=== PATIENT | male | born 1960 | race Caucasian/White ===

== ENCOUNTER 2017-07-27 04:57 | Inpatient (IN) | payer MEDICARE, MEDICAID, SELFPAY ==
[2017-07-27] VITALS (23 sets, daily range): BP systolic 107–140; BP diastolic 65–115; PULSE 75–95; RESP 11–20; TEMP 36.2–36.7; O2SAT 93–99; BMI 37.3; BMI 34.6
--- NOTE | 2017-07-27 05:04 | EKG12_ITS ---
Test Reason : OVERDOSE Blood Pressure : / mmHG Vent. Rate : 087 BPM Atrial Rate : 087 BPM P-R Int : 174 ms QRS Dur : 096 ms QT Int : 372 ms P-R-T Axes : 061 -46 038 degrees QTc Int : 447 ms Normal sinus rhythm Left anterior fascicular block Abnormal ECG Confirmed by NASEEM MCGREGOR, HAMLET ([id number]), health editor SANDY STARK ([id number]) on 07/28/2017 1:03:20 PM Referred By: CORNELL Confirmed By:HAMLET GUSMAN MD
--- NOTE | 2017-07-27 05:08 | NURSING ---
NO OLD EKG
[2017-07-27 05:16] LABS: Absolute Lymphocyte Count 2.57 X10^3/ul (0.83-4.51); Absolute Neutrophil Count 4.6 X10^3/uL (2.0-7.7); Basophil# 0.03 X10^3/uL; Basophil% 0.4 % (0-1); Eosinophil# 0.12 X10^3/uL; Eosinophils% 1.5 % (0-5); Hematocrit 48.9 % (40-54); Hemoglobin 16.8 g/dl (13.0-16.5); Lymphocyte # 2.57 X10^3/ul (4.0); Mean Corp Hgb Conc 34.4 g/gl (32-36); Mean Corpuscular Hgb 35.7 pg (27.0-32.0); Mean Platelet Vol. 9.8 fl (6.2-12.0); Monocyte# 0.49 X10^3/uL; Monocyte% 6.3 % (0-10); Neutrophil # 4.57 X10^3/uL (2.7-7.7); Neutrophil % 58.7 % (47-70); Platelet Count 190 K/mm3 (150-450); RBC Distribution Width SD 45.9 fl (35.1-43.9); White Blood Count 7.8 K/mm3 (4.4-11.0)
[2017-07-27 05:17] LABS: POSITIVE COUNT NO; POSITIVE DIFFERENTIAL NO; POSITIVE MORPHOLOGY NO
[2017-07-27 05:20] LABS: Anion Gap 8 (5-15); BUN 9 mg/dL (7-18); BUN/Creat Ratio 9.3 RATIO (10-20); Calcium,Total 8.6 mg/dL (8.5-10.1); Chloride 103 mmol/L (98-107); Creatinine, Serum 0.96 mg/dL (0.70-1.30); EST Glomerular Filtration Rate 85 mL/min (>60); Est Glom Filt Rate - Afr Amer 103 mL/min (>60); Estimated Creatinine Clearance 93.18 ml/min; Glucose 102 mg/dL (74-106); Potassium 3.9 mmol/L (3.5-5.1); Sodium Level 138 mmol/L (136-145)
[2017-07-27 05:48] LABS: Salicylate 2.7 mg/dL (2.8-20.0)
[2017-07-27] MEDS: 0.9% Normal Saline 1,000 ML 150 ML IV (05:48)
--- NOTE | 2017-07-27 06:08 | ED.RN ---
PT HAS BOWMAN OF 2 $20 BILLS 1 $10 BILL 1 $5 BILL AND 1 $1 BILL
--- NOTE | 2017-07-27 06:12 | ED.DCSUM_ITS ---
- ER Visit Summary Date of Service: 07/27/17 Chief Complaint: Overdose History of Present Illness: The patient is a [address] Dent. Patient reports that he has had 216 ounce beers since 5 PM yesterday. Reports at 2:00 this morning he took 800 mg of gabapentin. His significant other called the police because she thought that he had taken the rest of them. Patient reports that they fell on the toilet. Denies taking anything else. He denies any suicidal ideation. However, he is not reliable or forthcoming. I was able to reach the patient's significant other approximately an hour after his arrival. She reports that they had had an argument and she watched him take a handful of pills approximately 20 minutes after that. Based on the patient's pill bottles he should have had 18 gabapentin left if he was taking them appropriately. These are 400 mg pills. There are only 3 left. He should have had eight 1 mg Klonopin pills left. There are none left. Physical Examination: Vitals: Stable. Afebrile. Intoxicated. General: Well-nourished and well-developed. Head: Normocephalic atraumatic. Neck: Supple, no lymphadenopathy. No JVD. Nontender. Cardiovascular: Regular rate and rhythm. No murmurs. Respiratory: No respiratory distress. Clear to auscultation bilaterally. Abdominal: Soft, nontender, nondistended, normal bowel sounds. No guarding, rebound, or peritoneal signs. Back: Nontender. Extremities: Nontender, no edema. Skin: Normal color, no rash. Neurologic: Alert and oriented ?3. Cranial nerves II through XII are intact. Normal strength and sensation. Psych: Normal affect. Test Results: EKG is sinus at 87 with left anterior fascicular block. Normal QT interval. CBC is marked for hemoglobin 16.8. Chem-7 is normal. Aspirin level is 2.7. Tylenol is less than 2. Blood alcohol level is 81. Tox screen shows amphetamines. Emergency Department Course and Treatment: Patient was given charcoal in the emergency department. He has been observed over the course of 2-1/2 hours. He is somnolent, but arousable. He is protecting his airway and maintaining saturation in the mid 90s on no oxygen. Treatment Plan: The patient was discussed with Dr. Fierro and Dr. Mata. He will be admitted to the ICU for observation and consultation by the counseling center. Disposition: Admitted in serious condition. Impression: 1. Intentional overdose. This note was generated with [employer] dictation software. It may contain incorrect words, spelling, and punctuation that were not noted in review of the chart prior to signing ED Disposition - Plan for ED Patient: Chief Complaint: Overdose Referrals: Justice Messer MD [Primary Care Provider] -
[2017-07-27] MEDS: Ondansetron 4 MG/2 ML Vial IV (06:21)
[2017-07-27 06:27] LABS: Amphetamine Urine VISTA POSITIVE (<1000 ng/mL); Barbiturate Urine VISTA NEGATIVE (< 200 ng/mL); Benzodiazepine Urine VISTA NEGATIVE (< 200 ng/mL); Cocaine Urine VISTA NEGATIVE (< 300 ng/mL); Ecstacy Urine VISTA NEGATIVE (< 500 ng/mL); Methadone Urine VISTA NEGATIVE (< 300 ng/mL); PCP Urine VISTA NEGATIVE (< 25 ng/mL); THC Urine VISTA NEGATIVE (< 50 ng/mL); Vista UDS pH Range 6
[2017-07-27] MEDS: Activated Charcoal 50 GM/240 ML BOT PO (06:31)
[2017-07-27 07:08] LABS: Acetaminophen (Tylenol) Level < 2.0 ug/mL (10.0-30.0)
--- NOTE | 2017-07-27 07:21 | NURSING ---
DR CLEMENTE IN ER
--- NOTE | 2017-07-27 07:43 | NURSING ---
ICU 7 DRUG OD MALINDATI
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
[2017-07-27] MEDS: Enoxaparin 40 MG/0.4 ML Syringe SC (10:20)
[2017-07-27] MEDS: CHLORHEXIDINE GLUC 2% CLOTH 1 EACH TOWELETTE TOPICAL (10:20)
[2017-07-27] MEDS: 0.9% Normal Saline 1,000 ML 50 ML IV ×2 (10:20→17:17)
[2017-07-27 10:26] LABS: AST(SGOT) 29 U/L (15-37); Alanine Aminotransfer ALT/SGPT 35 U/L (16-61); Albumin, Serum 3.8 g/dL (3.2-5.0); Alkaline Phosphatase 106 U/L (45-117); Bilirubin, Direct 0.12 mg/dL (0.00-0.30); Cholesterol 214 mg/dL (200); Globulin 4.4 g/dL (2.2-4.2); High Density Lipoprotein 53 mg/dL; Protein, Total 8.2 g/dL (6.4-8.2); Triglycerides 228 mg/dL; Very Low Density Lipoprotein 46 mg/dL (5-40)
[2017-07-27 10:46] LABS: M R Staph aureus DNA By PCR Negative (Negative); Probe Check PASS; Specimen Processing Control PASS
--- NOTE | 2017-07-27 13:57 | CHAPLAIN ---
SO was in hallway and very emotional after seeing patient in ICU; offered support and we sat in waiting area to talk and bring calm to this SO; this person said she has insecurities about the relationship; pt has evidently been angry with her; Commercial Insulator had requested this visitor to go home so patient could be calm; this person had complied to leave room and then after we talked this nnps watched her get on the elevator to leave
--- NOTE | 2017-07-27 16:13 | CASEMGMT ---
Social Work RN reporting that pt is medically stable and physician is requesting crisis referral. Phone call to Taya at Crisis and referral made. Taya states she will make arrangements to have a community worker see the pt but was unable to give a time. Nursing notified. ABBY Yu
[2017-07-28] VITALS (11 sets, daily range): BP systolic 94–131; BP diastolic 59–82; PULSE 66–83; RESP 11–21; TEMP 36.7–37.1; O2SAT 93–98
[2017-07-28] MEDS: CHLORHEXIDINE GLUC 2% CLOTH 1 EACH TOWELETTE TOPICAL (05:07)
[2017-07-28] MEDS: 0.9% NaCl Peripheral Flush Adult/Peds IV (05:07)
[2017-07-28 05:16] LABS: Hematocrit 43.7 % (40-54); Hemoglobin 14.9 g/dl (13.0-16.5); Mean Corp Hgb Conc 34.1 g/gl (32-36); Mean Corpuscular Hgb 35.6 pg (27.0-32.0); Mean Corpuscular Volume 104.3 fL (80-94); Mean Platelet Vol. 9.9 fl (6.2-12.0); Platelet Count 171 K/mm3 (150-450); RBC Distribution Width CV 11.9 % (11.6-14.6); RBC Distribution Width SD 44.7 fl (35.1-43.9); Red Blood Count 4.19 M/mm3 (4.6-6.2); White Blood Count 6.5 K/mm3 (4.4-11.0)
[2017-07-28 05:18] LABS: Scan Indicated on CBC? Y/N NO
[2017-07-28 05:59] LABS: Anion Gap 6 (5-15); BUN 11 mg/dL (7-18); Calcium,Total 8.2 mg/dL (8.5-10.1); Chloride 109 mmol/L (98-107); EST Glomerular Filtration Rate 82 mL/min (>60); Est Glom Filt Rate - Afr Amer 99 mL/min (>60); Estimated Creatinine Clearance 89.46 ml/min; Glucose 86 mg/dL (74-106); Potassium 4.2 mmol/L (3.5-5.1); Sodium Level 142 mmol/L (136-145)
[2017-07-28] MEDS: Enoxaparin 40 MG/0.4 ML Syringe SC (07:39)
--- NOTE | 2017-07-28 08:57 | PCM.DC ---
- Discharge Diagnoses Current Active Problems: Current Active and Chronic Problems Chronic low back pain with bilateral sciatica (Chronic) Obesity (BMI 30-39.9) (Chronic) Mental retardation (Chronic) Speech impediment (Chronic) History of melanoma excision (Chronic) Lower lip Current smoker (Chronic) cigarettes Depression (Chronic) History of attempted suicide (Chronic) Neuropathy (Chronic) You will use the following diet at home:: Other - low fat Your food should be the consistency of: Regular Your liquids should be the consistency of: Regular/Thin Discharge Activity: Return to Normal Activity Call your doctor if you observe: Fever of 101 or Higher, - - any thoughts of committing suicide or any homicidal thoughts or thought of hurting someone Allergies/Adverse Reactions: Allergies No Known Allergies Allergy (Verified 07/27/17 05:12) Medications to take at Discharge BuPROPion [Wellbutrin] 75 mg PO DAILY 06/18/15 Gabapentin [Neurontin] 400 mg PO TIDCM 06/18/15 Ibuprofen/Diphenhydramine Cit [Advil Pm Caplet] 2 each PO QHS PRN PRN 06/18/15 Clonazepam [Klonopin] 1 mg PO QHS PRN PRN 07/27/17 Primary Care Physician: Justice Messer MD [Primary Care Provider] - Please follow up with your Primary Care Physician in: 5-7 days Please Follow Up With: councelling center When: has an appt for 07/30 Proposed Discharge Date: 07/28/17
--- NOTE | 2017-07-28 09:25 | PCM.DC.SUM ---
Discharge Date and Diagnosis Date of Admission: 07/27/17 Date of Discharge: 07/28/17 - Primary Discharge Diagnosis Active and Suspected Problems OD (overdose of drug) (Suspected) - Secondary Discharge Diagnosis Chronic Problems Chronic low back pain with bilateral sciatica (Chronic) Obesity (BMI 30-39.9) (Chronic) Mental retardation (Chronic) self reported Speech impediment (Chronic) History of melanoma excision (Chronic) Lower lip Current smoker (Chronic) cigarettes Depression (Chronic) History of attempted suicide (Chronic) Neuropathy (Chronic) Hospital Course and Treatment Imaging Results: Labs (Last 48 Hours) 07/27/17 07/27/17 07/27/17 05:00 05:00 05:00 WBC 7.8 RBC 4.70 Hgb 16.8 H Hct 48.9 MCV 104.0 H MCH 35.7 H MCHC 34.4 RDW 12.0 RDW Differential 45.9 H Plt Count 190 MPV 9.8 Immature Gran % (Auto) 0.100 Neut % (Auto) 58.7 Lymph % (Auto) 33.0 [place] % (Auto) 6.3 Eos % (Auto) 1.5 Baso % (Auto) 0.4 Absolute Neuts (auto) 4.6 Absolute Lymphs (auto) 2.57 Total Counted Not Reportable Sodium 138 Potassium 3.9 Chloride 103 Carbon Dioxide 27.0 Anion Gap 8 BUN 9 Creatinine 0.96 Estim Creat Clear Calc 93.18 Est GFR (MDRD) Af Amer 103 Est GFR (MDRD) Non-Af 85 BUN/Creatinine Ratio 9.3 L Glucose 102 Calcium 8.6 Total Bilirubin Direct Bilirubin AST ALT Alkaline Phosphatase Total Protein Albumin Globulin Triglycerides Cholesterol LDL Cholesterol VLDL Cholesterol HDL Cholesterol Salicylates 2.7 L Urine Opiates Screen Urine Methadone Screen Acetaminophen < 2.0 L Ur Barbiturates Screen Ur Phencyclidine Scrn Ur Amphetamines Screen U Methamphetamin-MDMA U Benzodiazepines Scrn Urine Cocaine Screen U Cannabinoids Screen Ur Drug Screen Comment Ethyl Alcohol 81.0 MRSA (PCR) 07/27/17 07/27/17 07/27/17 05:00 05:35 08:55 WBC RBC Hgb Hct MCV MCH MCHC RDW RDW Differential Plt Count MPV Immature Gran % (Auto) Neut % (Auto) Lymph % (Auto) [place] % (Auto) Eos % (Auto) Baso % (Auto) Absolute Neuts (auto) Absolute Lymphs (auto) Total Counted Sodium Potassium Chloride Carbon Dioxide Anion Gap BUN Creatinine Estim Creat Clear Calc Est GFR (MDRD) Af Amer Est GFR (MDRD) Non-Af BUN/Creatinine Ratio Glucose Calcium Total Bilirubin 0.40 Direct Bilirubin 0.12 AST 29 ALT 35 Alkaline Phosphatase 106 Total Protein 8.2 Albumin 3.8 Globulin 4.4 H Triglycerides 228 H Cholesterol 214 H LDL Cholesterol 115 VLDL Cholesterol 46 H HDL Cholesterol 53 Salicylates Urine Opiates Screen NEGATIVE Urine Methadone Screen NEGATIVE Acetaminophen Ur Barbiturates Screen NEGATIVE Ur Phencyclidine Scrn NEGATIVE Ur Amphetamines Screen POSITIVE H U Methamphetamin-MDMA NEGATIVE U Benzodiazepines Scrn NEGATIVE Urine Cocaine Screen NEGATIVE U Cannabinoids Screen NEGATIVE Ur Drug Screen Comment Ethyl Alcohol MRSA (PCR) Negative 07/28/17 07/28/17 05:05 05:05 WBC 6.5 RBC 4.19 L Hgb 14.9 Hct 43.7 MCV 104.3 H MCH 35.6 H MCHC 34.1 RDW 11.9 RDW Differential 44.7 H Plt Count 171 MPV 9.9 Immature Gran % (Auto) Neut % (Auto) Lymph % (Auto) [place] % (Auto) Eos % (Auto) Baso % (Auto) Absolute Neuts (auto) Absolute Lymphs (auto) Total Counted Sodium 142 Potassium 4.2 Chloride 109 H Carbon Dioxide 27.0 Anion Gap 6 BUN 11 Creatinine 1.00 Estim Creat Clear Calc 89.46 Est GFR (MDRD) Af Amer 99 Est GFR (MDRD) Non-Af 82 BUN/Creatinine Ratio 11.0 Glucose 86 Calcium 8.2 L Total Bilirubin Direct Bilirubin AST ALT Alkaline Phosphatase Total Protein Albumin Globulin Triglycerides Cholesterol LDL Cholesterol VLDL Cholesterol HDL Cholesterol Salicylates Urine Opiates Screen Urine Methadone Screen Acetaminophen Ur Barbiturates Screen Ur Phencyclidine Scrn Ur Amphetamines Screen U Methamphetamin-MDMA U Benzodiazepines Scrn Urine Cocaine Screen U Cannabinoids Screen Ur Drug Screen Comment Ethyl Alcohol MRSA (PCR) Consultations 07/27/17 15:15 Consult: Mental Health/Crisis Routine Reason for consult?: suicidal ideation Date Notified:: 07/27/17 Time notified:: 15:16 Operations: None Procedures: None Summary of Care Provided: The patient is a 57 year old M who was brought to the ED at [facility] on 07/27/2017 after his called them because she thought he had taken too many of his pills...he is on Gabapentin and Klonopin. She stated that he took a handful of pills in front of her after they had an argument. He denied this. He told me his pill bottles were empty because he took them while standing over the sink and the toilet is next to the sink and his pills ended up in the toilet. He denied any suicidal ideation however, he has had suicidal attempts in the past by hanging. Tells me he has been admitted to a psychiatric hospital on more than one occasion in the past. Vital signs at presentation to the emergency room were temp 97.1, pulse 90, blood pressure 140/115, respiratory rate 18 and oxygen saturation was 97% on room air. CBC was remarkable for an increased hemoglobin at 16.8 normal white blood cell count and differential. Electrolytes, BUN and creatinine were all normal. Urine drug screen was positive for amphetamines however, he does take Wellbutrin and I suspect this is a false positive. Interestingly enough it was negative for benzodiazepines and he is on Klonopin. He was admitted to the ICU. He drowsy but able to answer questions and follow commands at the time of my initial evaluation. He had no bradycardia and no respiratory difficulties in the ICU. there were a few altercations/loud arguments between he and his significant other and she was asked to leave. He was seen by Crisis intervention and denied any suicidal ideation or homicidal ideation. An appt was made for him to follow up at the located within [facility] on 07/30. He was discharged home on 07/28/17. This note was generated with [employer] dictation software. It may contain incorrect words, spelling, and punctuation that were not noted in checking the note before signing. Discharge Activity: Return to Normal Activity Call your doctor if you observe: Fever of 101 or Higher, - - any thoughts of committing suicide or any homicidal thoughts or thought of hurting someone Home Medications: Medications to take at Discharge BuPROPion [Wellbutrin] 75 mg PO DAILY 06/18/15 Gabapentin [Neurontin] 400 mg PO TIDCM 06/18/15 Ibuprofen/Diphenhydramine Cit [Advil Pm Caplet] 2 each PO QHS PRN PRN 06/18/15 Clonazepam [Klonopin] 1 mg PO QHS PRN PRN 07/27/17 Primary Care Physician: Justice Messer MD [Primary Care Provider] - Please follow up with your Primary Care Physician in: 5-7 days Please Follow Up With: [facility] When: has an appt for 07/30 Disposition: Home Minutes spent on discharge:: 30 Meaningful Use Info Meaningful Use Diagnoses (Choose all that apply): None applicable
--- NOTE | 2017-07-28 09:28 | DS.PCM_ITS ---
Discharge Date and Diagnosis Date of Admission: 07/27/17 Date of Discharge: 07/28/17 - Primary Discharge Diagnosis Active and Suspected Problems OD (overdose of drug) (Suspected) - Secondary Discharge Diagnosis Chronic Problems Chronic low back pain with bilateral sciatica (Chronic) Obesity (BMI 30-39.9) (Chronic) Mental retardation (Chronic) self reported Speech impediment (Chronic) History of melanoma excision (Chronic) Lower lip Current smoker (Chronic) cigarettes Depression (Chronic) History of attempted suicide (Chronic) Neuropathy (Chronic) Hospital Course and Treatment Imaging Results: Labs (Last 48 Hours) 07/27/17 07/27/17 07/27/17 05:00 05:00 05:00 WBC 7.8 RBC 4.70 Hgb 16.8 H Hct 48.9 MCV 104.0 H MCH 35.7 H MCHC 34.4 RDW 12.0 RDW Differential 45.9 H Plt Count 190 MPV 9.8 Immature Gran % (Auto) 0.100 Neut % (Auto) 58.7 Lymph % (Auto) 33.0 Dale % (Auto) 6.3 Eos % (Auto) 1.5 Baso % (Auto) 0.4 Absolute Neuts (auto) 4.6 Absolute Lymphs (auto) 2.57 Total Counted Not Reportable Sodium 138 Potassium 3.9 Chloride 103 Carbon Dioxide 27.0 Anion Gap 8 BUN 9 Creatinine 0.96 Estim Creat Clear Calc 93.18 Est GFR (MDRD) Af Amer 103 Est GFR (MDRD) Non-Af 85 BUN/Creatinine Ratio 9.3 L Glucose 102 Calcium 8.6 Total Bilirubin Direct Bilirubin AST ALT Alkaline Phosphatase Total Protein Albumin Globulin Triglycerides Cholesterol LDL Cholesterol VLDL Cholesterol HDL Cholesterol Salicylates 2.7 L Urine Opiates Screen Urine Methadone Screen Acetaminophen < 2.0 L Ur Barbiturates Screen Ur Phencyclidine Scrn Ur Amphetamines Screen U Methamphetamin-MDMA U Benzodiazepines Scrn Urine Cocaine Screen U Cannabinoids Screen Ur Drug Screen Comment Ethyl Alcohol 81.0 MRSA (PCR) 07/27/17 07/27/17 07/27/17 05:00 05:35 08:55 WBC RBC Hgb Hct MCV MCH MCHC RDW RDW Differential Plt Count MPV Immature Gran % (Auto) Neut % (Auto) Lymph % (Auto) Dale % (Auto) Eos % (Auto) Baso % (Auto) Absolute Neuts (auto) Absolute Lymphs (auto) Total Counted Sodium Potassium Chloride Carbon Dioxide Anion Gap BUN Creatinine Estim Creat Clear Calc Est GFR (MDRD) Af Amer Est GFR (MDRD) Non-Af BUN/Creatinine Ratio Glucose Calcium Total Bilirubin 0.40 Direct Bilirubin 0.12 AST 29 ALT 35 Alkaline Phosphatase 106 Total Protein 8.2 Albumin 3.8 Globulin 4.4 H Triglycerides 228 H Cholesterol 214 H LDL Cholesterol 115 VLDL Cholesterol 46 H HDL Cholesterol 53 Salicylates Urine Opiates Screen NEGATIVE Urine Methadone Screen NEGATIVE Acetaminophen Ur Barbiturates Screen NEGATIVE Ur Phencyclidine Scrn NEGATIVE Ur Amphetamines Screen POSITIVE H U Methamphetamin-MDMA NEGATIVE U Benzodiazepines Scrn NEGATIVE Urine Cocaine Screen NEGATIVE U Cannabinoids Screen NEGATIVE Ur Drug Screen Comment Ethyl Alcohol MRSA (PCR) Negative 07/28/17 07/28/17 05:05 05:05 WBC 6.5 RBC 4.19 L Hgb 14.9 Hct 43.7 MCV 104.3 H MCH 35.6 H MCHC 34.1 RDW 11.9 RDW Differential 44.7 H Plt Count 171 MPV 9.9 Immature Gran % (Auto) Neut % (Auto) Lymph % (Auto) Dale % (Auto) Eos % (Auto) Baso % (Auto) Absolute Neuts (auto) Absolute Lymphs (auto) Total Counted Sodium 142 Potassium 4.2 Chloride 109 H Carbon Dioxide 27.0 Anion Gap 6 BUN 11 Creatinine 1.00 Estim Creat Clear Calc 89.46 Est GFR (MDRD) Af Amer 99 Est GFR (MDRD) Non-Af 82 BUN/Creatinine Ratio 11.0 Glucose 86 Calcium 8.2 L Total Bilirubin Direct Bilirubin AST ALT Alkaline Phosphatase Total Protein Albumin Globulin Triglycerides Cholesterol LDL Cholesterol VLDL Cholesterol HDL Cholesterol Salicylates Urine Opiates Screen Urine Methadone Screen Acetaminophen Ur Barbiturates Screen Ur Phencyclidine Scrn Ur Amphetamines Screen U Methamphetamin-MDMA U Benzodiazepines Scrn Urine Cocaine Screen U Cannabinoids Screen Ur Drug Screen Comment Ethyl Alcohol MRSA (PCR) Consultations 07/27/17 15:15 Consult: Mental Health/Crisis Routine Reason for consult?: suicidal ideation Date Notified:: 07/27/17 Time notified:: 15:16 Operations: None Procedures: None Summary of Care Provided: The patient is a 57 year old M who was brought to the ED at [facility] on 07/27/2017 after his called them because she thought he had taken too many of his pills...he is on Gabapentin and Klonopin. She stated that he took a handful of pills in front of her after they had an argument. He denied this. He told me his pill bottles were empty because he took them while standing over the sink and the toilet is next to the sink and his pills ended up in the toilet. He denied any suicidal ideation however, he has had suicidal attempts in the past by hanging. Tells me he has been admitted to a psychiatric hospital on more than one occasion in the past. Vital signs at presentation to the emergency room were temp 97.1, pulse 90, blood pressure 140/115, respiratory rate 18 and oxygen saturation was 97% on room air. CBC was remarkable for an increased hemoglobin at 16.8 normal white blood cell count and differential. Electrolytes, BUN and creatinine were all normal. Urine drug screen was positive for amphetamines however, he does take Wellbutrin and I suspect this is a false positive. Interestingly enough it was negative for benzodiazepines and he is on Klonopin. He was admitted to the ICU. He drowsy but able to answer questions and follow commands at the time of my initial evaluation. He had no bradycardia and no respiratory difficulties in the ICU. there were a few altercations/loud arguments between he and his significant other and she was asked to leave. He was seen by Crisis intervention and denied any suicidal ideation or homicidal ideation. An appt was made for him to follow up at the [facility] on 07/30. He was discharged home on 07/28/17. This note was generated with [employer] dictation software. It may contain incorrect words, spelling, and punctuation that were not noted in checking the note before signing. Discharge Activity: Return to Normal Activity Call your doctor if you observe: Fever of 101 or Higher, - - any thoughts of committing suicide or any homicidal thoughts or thought of hurting someone Home Medications: Medications to take at Discharge BuPROPion [Wellbutrin] 75 mg PO DAILY 06/18/15 Gabapentin [Neurontin] 400 mg PO TIDCM 06/18/15 Ibuprofen/Diphenhydramine Cit [Advil Pm Caplet] 2 each PO QHS PRN PRN 06/18/15 Clonazepam [Klonopin] 1 mg PO QHS PRN PRN 07/27/17 Primary Care Physician: Justice Messer MD [Primary Care Provider] - Please follow up with your Primary Care Physician in: 5-7 days Please Follow Up With: [facility] When: has an appt for 07/30 Disposition: Home Minutes spent on discharge:: 30 Meaningful Use Info Meaningful Use Diagnoses (Choose all that apply): None applicable
== END 2017-07-28 09:45 | disposition home or self-care (01) | DRG 918 ==
LOC: ED 05:28 → ICU 07:46
PROVIDERS: Admitting Provider Internal Medicine; Emergency Provider Emergency Medicine; Family Provider Family Medicine; PCP Family Medicine; Visit Provider Internal Medicine
DX: T50.901A Poisoning by unspecified drugs, medicaments and biological substances, accidental (unintentional), initial encounter (principal); G62.9 Polyneuropathy, unspecified; E66.9 Obesity, unspecified; G89.29 Other chronic pain; M54.42 Lumbago with sciatica, left side; M54.41 Lumbago with sciatica, right side; Z68.35 Body mass index [BMI] 35.0-35.9, adult; F79 Unspecified intellectual disabilities; R47.9 Unspecified speech disturbances; Z85.820 Personal history of malignant melanoma of skin; F17.210 Nicotine dependence, cigarettes, uncomplicated; Z91.5 Personal history of self-harm; F32.9 Major depressive disorder, single episode, unspecified
CPT/HCPCS: 80048; 80061; 80076; 80307; 80320; 80329; 85025; 85027; 87641; 93005; 99285; 99406; J7030; A4216; G0480; J2405

== ENCOUNTER → 2017-08-11 11:26 | Outpatient (CLI) | payer MEDICARE, MEDICAID, SELFPAY ==
[2017-08-11 14:53] LABS: PSA,Total - Annual Screen 1.59 ng/mL (0.00-4.00)
[2017-08-12 09:41] LABS: Vitamin D,25 Hydroxy 18.2 ng/mL (29.95-100.01)
== END ==
PROVIDERS: Family Provider Family Medicine; PCP Family Medicine; Visit Provider Family Medicine
DX: Z00.00 Encounter for general adult medical examination without abnormal findings (principal); Z12.5 Encounter for screening for malignant neoplasm of prostate; N52.9 Male erectile dysfunction, unspecified; E55.9 Vitamin D deficiency, unspecified
CPT/HCPCS: 36415; 82306; 84153; 84403; G0103

== ENCOUNTER → 2017-11-11 10:47 | Outpatient (CLI) | payer MEDICARE, MEDICAID, SELFPAY ==
--- NOTE | 2017-11-11 10:51 | RAD_ITS ---
STUDY: X-RAY - RIGHT HAND, ATTENTION RING FINGER REASON FOR EXAM: Male, 57 years old. Nodule TECHNIQUE: 3 view(s) of the finger were obtained. COMPARISON: None. FINDINGS: There is deformity of the visualized fifth metacarpal consistent with remote trauma. Normal metacarpophalangeal joint. Normal proximal phalanx. There is some cortical thickening along the anterior diaphysis of the fourth middle phalanx. Normal distal phalanx. Normal proximal interphalangeal joint. Normal distal interphalangeal joint. There is no fracture. A bony spur is seen along the radial aspect of the distal third phalanx. Some cortical thickening is seen along the anterior diaphysis of the fifth middle phalanx as well. RAD/Finger(s) Min 2 Views IMPRESSION: Cortical thickening along the diaphysis of the fourth and fifth middle phalanges. This is of uncertain clinical significance. No discrete soft tissue abnormality or acute fracture. Electronically Signed: Zbigniew Noguera DO at 8:46 EDT Tel , Service support ,
== END ==
PROVIDERS: Family Provider Family Medicine; PCP Family Medicine; Visit Provider Family Medicine
DX: R22.31 Localized swelling, mass and lump, right upper limb (principal)
CPT/HCPCS: 73140

== ENCOUNTER 2018-07-28 05:59 | Day surgery (SDC) | payer MEDICARE, MEDICAID, SELFPAY ==
[2018-07-09 10:47] VITALS: BMI 34.6
[2018-07-28 06:52] VITALS: BP 123/84; PULSE 81; RESP 18; TEMP 36.3; O2SAT 98; BMI 34.9
--- NOTE | 2018-07-28 07:30 | IMM_PTH ---
PATIENT: CRISTOPHER DA SILVA LOC: EN U#:[id number] AGE/SX: 58/M ROOM: RE07/28/[address]: Dr. Shashi Betts MD : 1960 BED: DIS: 07/28/2018 SPEC #: [id number] RECD: 07/28/18 14:08 STATUS: MICHAEL REColton #: [id number] BOBBY: 07/28/18 07:[address]: Shashi Betts DEPT: IMMUNOHISTOCHEMISTRY RECD BY: Fadia Clark ENTERED: 07/28/18 14:10 SP TYPE: IMMUNO OTHR DR: Dr. Rupert Messer MD Tissues: Stomach, NOS Procedures: H Pylori (initial) PHYSICIAN & INSTITUTION [place] [id number] SPECIMEN INFORMATION: Tissue Source: Antrum biopsy Clinical Info: Epigastric abdomen pain, GERD Specimen Number: [id number] CPT code: 75859 METHODOLOGY: Deparaffinized sections of prefer/formalin-fixed tissue or PAP/DQ stained slides are incubated with monoclonal/polyclonal antibodies/oligonucleotide probes. Localization is made via biotin free immunoperoxidase method. Appropriate controls are performed and reacted as expected. Results on target cell population are indicated in the following table: RESULTS: ANTIBODY / CLONE RESULT H Pylori (polyclonal) negative These tests were developed and their performance characteristics determined by [facility]. They may not have been cleared or approved by the U.S. Food and Drug Administration. The FDA has determined that such clearance or approval is not necessary. INTERPRETATION: Antrum biopsy: Negative for Helicobacter pylori organisms. BONILLA:shyla 07/29/18
--- NOTE | 2018-07-28 07:30 | EGD_PTH ---
PATIENT: CRISTOPHER DA SILVA LOC: EN U#:[id number] AGE/SX: 58/M ROOM: RE07/28/[address]: Dr. Shashi Betts MD : 1960 BED: DIS: 07/28/2018 SPEC #: [id number] RECD: 07/28/18 10:51 STATUS: MICHAEL JERONIMO #: [id number] BOBBY: 07/28/18 07:[address]: Shashi Betts DEPT: SURGICAL PATHOLOGY RECD BY: Benjamín Elder ENTERED: 07/28/18 13:25 SP TYPE: EGD BIOPSY OTHR DR: Dr. Rupert Messer MD Tissues: Gastric mucous membrane Procedures: Surgery Specimen Level IV HEADER OPERATION: EGD ([facility] [place]) PRE-OP DIAGNOSIS: Epigastric abdomen pain, GERD TISSUE SUBMITTED: Antrum biopsy for H. pylori and path MICROSCOPIC DIAGNOSIS Antrum biopsy: Mild gastritis. See microscopic description and comment. SJ:shyla 07/29/18 COMMENT The results of immunohistochemistry for Helicobacter pylori will be reported separately ([id number]). MICROSCOPIC DESCRIPTION Slides are reviewed. The specimen shows fragments of gastric mucosa with chronic inflammatory cell infiltrates in the lamina propria consisting of lymphocytes and plasma cells, consistent with mild chronic gastritis. GROSS DESCRIPTION Received in fixative is one container labeled with the patient's name and designated antrum biopsy. The specimen consists of one irregular fragment of light alcocer soft tissue that measures 0.7 x 0.2 x 0.1 cm. The specimen is totally submitted in one cassette. / AM:shyla 07/28/18 TC:5 CPT: 84341
--- NOTE | 2018-07-28 07:42 | OP.ENDO_ITS ---
Patient Name: Jayda Mclean Procedure Date: 07/28/2018 7:28 AM Date of : 1960 Age: 58 Procedure: Upper GI endoscopy Indications: Epigastric abdominal pain, Suspected esophageal reflux Providers: Shashi Betts MD Referring MD: Shashi Betts MD Medicines: See the Anesthesia note for documentation of the administered medications Patient Profile: This is a 58 year old male. Refer to note in patient chart for documentation of history and physical. Complications: No immediate complications. Procedure: Pre-Anesthesia Assessment: - Prior to the procedure, a History and Physical was performed, and patient medications and allergies were reviewed. The patient's tolerance of previous anesthesia was also reviewed. The risks and benefits of the procedure and the sedation options and risks were discussed with the patient. All questions were answered, and informed consent was obtained. Prior Anticoagulants: The patient has taken no previous anticoagulant or antiplatelet agents. ASA Grade Assessment: III - A patient with severe systemic disease. After reviewing the risks and benefits, the patient was deemed in satisfactory condition to undergo the procedure. After obtaining informed consent, the endoscope was passed under direct vision. Throughout the procedure, the patient's blood pressure, pulse, and oxygen saturations were monitored continuously. The gastroscope was introduced through the mouth, and advanced to the second part of duodenum. The upper GI endoscopy was accomplished without difficulty. The patient tolerated the procedure well. Scope In: 7:35:49 AM Scope Out: 7:39:34 AM Total Procedure Duration Time 0 hours 3 minutes 45 seconds Findings: The examined esophagus was normal. The Z-line was regular and was found 40 cm from the incisors. Diffuse mild inflammation characterized by erythema was found in the prepyloric region of the stomach. Biopsies were taken with a cold forceps for Helicobacter pylori testing. The examined duodenum was normal. No biopsies or other specimens were collected for this exam. Impression: - Normal esophagus. - Z-line regular, 40 cm from the incisors. - Gastritis. Biopsied. - Normal examined duodenum. No specimens collected. Recommendation: - Discharge patient to home. - Resume previous diet. - Continue present medications. - Await pathology results. - Repeat upper endoscopy at appointment to be scheduled for surveillance. - Return to my office in 1 week. Procedure Code(s): --- Professional --- 93402, Esophagogastroduodenoscopy, flexible, transoral; with biopsy, single or multiple Diagnosis Code(s): --- Professional --- K29.70, Gastritis, unspecified, without bleeding R10.13, Epigastric pain CPT copyright 2017 [employer]. All rights reserved. The codes documented in this report are preliminary and upon mobile homes repairer review may be revised to meet current compliance requirements. MD Shashi Aaron MD 07/28/2018 7:42:59 AM This report has been signed electronically. Number of Addenda: 0 Note Initiated On: 07/28/2018 7:28 AM
[2018-07-28 07:43] VITALS: BP 123/84; BP 91/77; PULSE 75; RESP 16; TEMP 36.6; O2SAT 92
[2018-07-28 07:50] VITALS: BP 100/79; BP 123/84; PULSE 71; RESP 16; O2SAT 94
[2018-07-28 07:55] VITALS: BP 103/82; BP 123/84; PULSE 69; RESP 16; O2SAT 94
[2018-07-28 08:03] VITALS: BP 107/66; BP 123/84; PULSE 73; RESP 16; TEMP 36.6; O2SAT 95
[2018-07-28 08:26] VITALS: BP 123/84
== END 2018-07-28 08:28 | disposition home or self-care (01) ==
LOC: EN 05:59 → AC 06:00
PROVIDERS: Family Provider Family Medicine; PCP Family Medicine; Referring Provider Surgery; Visit Provider Surgery
PROC: 0DJ08ZZ Inspection of Upper Intestinal Tract, Via Natural or Artificial Opening Endoscopic (ICD-10-PCS; CPT 43235; principal; 2018-07-28 07:25)
DX: K29.70 Gastritis, unspecified, without bleeding (principal); K21.9 Gastro-esophageal reflux disease without esophagitis; R10.13 Epigastric pain; F32.9 Major depressive disorder, single episode, unspecified; F41.9 Anxiety disorder, unspecified; F25.0 Schizoaffective disorder, bipolar type; F79 Unspecified intellectual disabilities; R47.9 Unspecified speech disturbances; G62.9 Polyneuropathy, unspecified; E66.9 Obesity, unspecified; F17.220 Nicotine dependence, chewing tobacco, uncomplicated; Z68.34 Body mass index [BMI] 34.0-34.9, adult; Z79.899 Other long term (current) drug therapy
CPT/HCPCS: 43239; 88305; 88342; J7120

== ENCOUNTER → 2018-08-02 11:52 | Outpatient (CLI) | payer MEDICARE, MEDICAID, SELFPAY ==
[2018-07-28 06:52] VITALS: BMI 34.9
[2018-08-02 14:15] LABS: BUN 9 mg/dL (7-18); EST Glomerular Filtration Rate 66 mL/min (>60); Glucose 89 mg/dL (74-106)
[2018-08-02 14:16] LABS: AST(SGOT) 33 U/L (15-37); Alanine Aminotransfer ALT/SGPT 29 U/L (16-61); Albumin, Serum 3.9 g/dL (3.2-5.0); Alkaline Phosphatase 108 U/L (45-117); Anion Gap 6 (5-15); BUN/Creat Ratio 7.5 RATIO (10-20); Calcium,Total 8.8 mg/dL (8.5-10.1); Chloride 105 mmol/L (98-107); Cholesterol 201 mg/dL (200); Est Glom Filt Rate - Afr Amer 80 mL/min (>60); Globulin 4.1 g/dL (2.2-4.2); High Density Lipoprotein 49 mg/dL; Potassium 4.3 mmol/L (3.5-5.1); Sodium Level 139 mmol/L (136-145); Triglycerides 263 mg/dL; Very Low Density Lipoprotein 53 mg/dL (5-40)
[2018-08-02 14:27] LABS: Vitamin D,25 Hydroxy 45.6 ng/mL (29.95-100.01)
== END ==
PROVIDERS: Family Provider Family Medicine; PCP Family Medicine; Visit Provider Family Medicine
DX: Z00.00 Encounter for general adult medical examination without abnormal findings (principal); E55.9 Vitamin D deficiency, unspecified; R07.9 Chest pain, unspecified
CPT/HCPCS: 36415; 80053; 80061; 82306

== ENCOUNTER → 2018-08-06 05:44 | Outpatient (CLI) | payer MEDICARE, MEDICAID, SELFPAY ==
[2018-07-28 06:52] VITALS: BMI 34.9
--- NOTE | 2018-08-06 18:32 | STRESSREP ---
Stress Test Report Date: 08-06-2018 Procedure: Exercise tolerance test/imaging study Indications: Chest pain; abnormal ECG Consent: Per the patient Procedure: The patient exercised on a Awais protocol for 8 minutes completing Stage II and 2 minutes of Stage III achieving a peak heart rate of 144 bpm (88 % predicted maximal heart rate) with a peak blood pressure 202/64 mmHg and a peak MET capacity of 9 METs. The baseline ECG demonstrated sinus bradycardia . The peak exercise ECG demonstrated no obvious ECG changes . There were no cardiac dysrhythmias pretest, during exercise, or recovery. The functional capacity was considered average . There was no complaint of chest discomfort during exercise or recovery. The examination was discontinued secondary to dyspnea . Impression: 1. Technically adequate (percent predicted maximal heart rate greater than 85%) exercise tolerance test 2. Peak exercise ECG with no obvious ECG changes 3. There were no cardiac dysrhythmias pretest, during exercise, or recovery 4. Nuclear images pending Myocardial perfusion imaging study: Technique: The patient was injected with 14.5 mCi of technetium 99m Cardiolite and subsequently rest SPECT Cardiolite nuclear imaging was obtained in the horizontal long, vertical long, and short axis views. The patient exercised on a Awais protocol for 8 minutes completing Stage II and 2 minutes of Stage III achieving a peak heart rate of 144 bpm (88 % predicted maximal heart rate) with a peak blood pressure 2O2/64 mmHg and a peak MET capacity of 9 METs. The patient was injected with 44.1 mCi of technetium 99m Cardiolite and subsequently stress SPECT Cardiolite nuclear imaging was obtained in the horizontal long, vertical long, and short axis views. A gated Cardiolite study at peak stress was obtained. Interpretation: Rest and stress SPECT Cardiolite nuclear imaging status post realignment, normalization, and attenuation correction, demonstrates the appearance of relative uniform tracer uptake and myocardial perfusion appearing within normal limits. There is end systolic thickening and brightening. The gated Cardiolite study demonstrates myocardial thickening and inward wall motion. The reported LVEF is 73 %. Impression: 1. Rest and stress SPECT Cardiolite nuclear imaging demonstrate relative uniform tracer uptake and myocardial perfusion appearing within normal limits. 2. The gated Cardiolite study reports an LVEF of 73 %. This note was generated with [employer] software. It may contain incorrect words, spelling, and punctuation that were not noted in checking the note before signing.
== END ==
PROVIDERS: Family Provider Family Medicine; PCP Family Medicine; Referring Provider Family Medicine; Visit Provider Family Medicine
DX: R07.9 Chest pain, unspecified (principal)
CPT/HCPCS: 78452; 93017; A9500; A4216

== ENCOUNTER → 2020-01-23 10:59 | Outpatient (CLI) | payer MEDICARE, MEDICAID, SELFPAY ==
[2020-01-24 07:39] LABS: SARS-COV-2 TOTAL ABS Nonreactive (Nonreactive)
== END ==
PROVIDERS: PCP Family Medicine; Visit Provider Family Medicine
DX: Z20.828 Contact with and (suspected) exposure to other viral communicable diseases (principal)
CPT/HCPCS: 86769; G2023

== ENCOUNTER → 2020-07-05 10:06 | Outpatient (CLI) | payer MEDICARE, MEDICAID, SELFPAY ==
[2020-07-05 12:19] LABS: Hematocrit 46.3 % (40-54); Hemoglobin 15.7 g/dL (13.0-16.5); Mean Corp Hgb Conc 33.9 g/dL (32-36); Mean Corpuscular Hgb 34.4 pg (27.0-32.0); Mean Corpuscular Volume 101.3 fL (80-94); Platelet Count 212 K/mm3 (150-450); RBC Distribution Width SD 44.9 fl (35.1-43.9); Red Blood Count 4.57 M/mm3 (4.6-6.2); White Blood Count 10.6 K/mm3 (4.4-11.0)
[2020-07-05 12:46] LABS: ALB/GLOB Ratio 1.1 RATIO (0.9-2.4); AST(SGOT) 28 U/L (15-37); Alanine Aminotransfer ALT/SGPT 45 U/L (16-61); Alkaline Phosphatase 99 U/L (45-117); Anion Gap 6 (5-15); BUN 13 mg/dL (7-18); BUN/Creat Ratio 13.9 RATIO (10-20); Calcium,Total 9.1 mg/dL (8.5-10.1); Chloride 107 mmol/L (98-107); Cholesterol 203 mg/dL (200); Creatinine, Serum 0.93 mg/dL (0.70-1.30); EST Glomerular Filtration Rate 88 mL/min (>60); Est Glom Filt Rate - Afr Amer 106 mL/min (>60); Globulin 3.6 g/dL (2.2-4.2); Glucose 101 mg/dL (74-106); High Density Lipoprotein 58 mg/dL; PSA,Total - Annual Screen 1.66 ng/mL (0.00-4.00); Protein, Total 7.6 g/dL (6.4-8.2); Sodium Level 139 mmol/L (136-145); Triglycerides 114 mg/dL; Very Low Density Lipoprotein 23 mg/dL (5-40)
[2020-07-05 12:49] LABS: Vitamin D,25 Hydroxy 36.4 ng/mL
== END ==
PROVIDERS: PCP Family Medicine; Referring Provider Family Medicine; Visit Provider Family Medicine
DX: K21.9 Gastro-esophageal reflux disease without esophagitis (principal); J44.9 Chronic obstructive pulmonary disease, unspecified; E55.9 Vitamin D deficiency, unspecified; Z12.5 Encounter for screening for malignant neoplasm of prostate; Z13.220 Encounter for screening for lipoid disorders; R53.83 Other fatigue; Z79.899 Other long term (current) drug therapy
CPT/HCPCS: 36415; 80053; 80061; 82306; 84153; 85027; G0103

== ENCOUNTER → 2020-07-18 14:06 | Outpatient (CLI) | payer MEDICARE, MEDICAID, SELFPAY ==
--- NOTE | 2020-07-18 14:12 | RAD_ITS ---
STUDY: X-RAY - PELVIS AND LEFT HIP REASON FOR EXAM: Male, 60 years old. Left hip pain. History of several injuries. TECHNIQUE: 3 views of the pelvis and hip. COMPARISON: 01/03/2015 FINDINGS: There is a non-specific bowel gas pattern. Normal visualized soft tissue structures. Generalized osteopenia. Normal bilateral iliac wings, sacroiliac joints and visualized sacrum. Normal bilateral superior and inferior pubic rami. Normal pubic symphysis. Normal bilateral ischial tuberosities. Moderate lower lumbar spondylosis. Mild arthrosis of both hips. RAD/HIP, UNI W/ Pelvis 2-3 Views IMPRESSION: Osteopenia with osteoarthritic changes as described. No acute finding. Electronically Signed: Saurabh Doherty MD at 15:32 EST , Service support ,
== END ==
PROVIDERS: PCP Family Medicine; Referring Provider Nurse Practitioner Family; Visit Provider Nurse Practitioner Family
DX: M25.552 Pain in left hip (principal)
CPT/HCPCS: 73502

== ENCOUNTER → 2020-07-25 09:26 | Outpatient (CLI) | payer MEDICARE, MEDICAID, SELFPAY ==
--- NOTE | 2020-07-25 09:28 | RAD_ITS ---
STUDY: X-RAY - RIGHT SHOULDER REASON FOR EXAM: Right shoulder pain radiating into neck, no specific injury. TECHNIQUE: 4 view(s) of the shoulder. COMPARISON: None. FINDINGS: Normal glenohumeral articulation. Normal acromioclavicular joint. Normal acromion. Normal humeral head and visualized proximal humerus. The soft tissue structures are unremarkable. Normal visualized pulmonary apex. RAD/Shoulder min 2 Views IMPRESSION: Normal x-ray examination of the right shoulder. Electronically Signed: Jordan Leon MD at 10:50 EST Tel , Service support ,
== END ==
PROVIDERS: PCP Family Medicine; Referring Provider Nurse Practitioner Family; Visit Provider Nurse Practitioner Family
DX: M25.511 Pain in right shoulder (principal)
CPT/HCPCS: 73030

== ENCOUNTER → 2020-10-01 09:10 | Outpatient (CLI) | payer MEDICARE, MEDICAID, SELFPAY ==
--- NOTE | 2020-10-01 09:14 | RAD_ITS ---
STUDY: X-RAY - LEFT SHOULDER REASON FOR EXAM: Male, 60 years old. PAIN TECHNIQUE: 4 view(s) of the shoulder. COMPARISON: None. FINDINGS: No acute fracture, dislocation or osseous destruction. Healed left rib fractures. Moderate acromioclavicular joint arthrosis. Mild glenohumeral joint arthrosis. No significant soft tissue swelling. RAD/Shoulder min 2 Views IMPRESSION: Left shoulder intact Moderate AC joint arthrosis Mild glenohumeral joint arthrosis Electronically Signed: Emerson Barragan DO at 9:45 EDT Tel , Service support ,
== END ==
PROVIDERS: PCP Family Medicine; Referring Provider Family Medicine; Visit Provider Family Medicine
DX: M25.512 Pain in left shoulder (principal)
CPT/HCPCS: 73030

== ENCOUNTER → 2020-10-05 06:26 | Outpatient (CLI) | payer MEDICARE, MEDICAID, SELFPAY ==
--- NOTE | 2020-10-05 06:47 | MRI_ITS ---
STUDY: MRI LUMBAR SPINE WITHOUT CONTRAST REASON FOR EXAM: Male, 60 years old. SPINAL STENOSIS, PAIN IN BILATERAL HIPS AND INTO LEGS L and gt;R TECHNIQUE: Standardized fat and water weighted pulse sequences were obtained in the sagittal and axial planes. COMPARISON: MRI lumbar spine without contrast 04/09/2015. FINDINGS: T11-T12: (Sagittal only). Schmorl''s nodes in the vertebral endplates. Mild disc space height narrowing. Small posterior bulging disc. Normal central canal and bilateral intervertebral neural foramina. T12-L1: (Sagittal only). Tiny Schmorl''s nodes in the vertebral endplates. Normal disc height and morphology. Normal central canal and bilateral intervertebral neural foramina. Normal lumbar lordosis. There is no substantial scoliosis. Normal conus medullaris that terminates at the upper L1 vertebral body level. L1-2: Moderate left-sided disc space height narrowing and MODIC type I degenerative vertebral marrow edema underneath the left side of the vertebral endplates are new findings. Mild degenerative anterolisthesis of L1 on L2 with left posterior paramedian and slightly cephalad disc protrusion are also new findings. Moderately pronounced flattening central canal stenosis with an AP canal diameter of 5.6 mm. Normal bilateral lateral recesses. Progression of bilateral L1-L2 degenerative facet arthropathy which are moderately pronounced. Moderate stenosis of the left intervertebral neural foramen is new. Normal right intervertebral neural foramen. L2-3: Normal endplates. Mild disc space height narrowing is new. Small posterior annular bulging disc is new. Moderate central canal stenosis with an AP canal diameter of 7 mm, previously 9.6 mm. Normal bilateral lateral recesses. Moderate right degenerative facet arthropathy which was previously mild. Normal bilateral intervertebral neural foramina. L3-4: Anterior marginal spurs and prominent right lateral marginal spurs. Moderately pronounced disc space height narrowing, increasing towards the right side. Mild increase MODIC type II degenerative vertebral marrow fatty changes underneath the vertebral endplates. Small posterior annular bulging disc is unchanged. Mild to moderate central canal stenosis with an AP canal diameter of 8 mm is unchanged. Prominent dorsal epidural lipomatosis. Mild mild asymmetric degenerative facet arthropathy is unchanged. Mild stenosis of the right intervertebral neural foramen is unchanged. Normal left intervertebral neural foramen. L4-5: Pronounced disc space height narrowing with MODIC type II degenerative vertebral marrow fatty changes underneath the vertebral endplates and the irregularities of the vertebral endplates are unchanged. Moderately pronounced central canal stenosis with a transverse canal diameter of 5 mm but the AP canal diameter is 7.7 mm. This is unchanged. Moderate bilateral degenerative facet arthropathy are unchanged. Moderate stenosis of the right intervertebral neural foramen is unchanged. Mild stenosis of the left intervertebral neural foramen is unchanged. L5-S1: Minimal MODIC type II degenerative vertebral marrow fatty changes underneath the left side of the vertebral endplates are unchanged. Small posterior bulging disc is unchanged but there is mild decreased disc space height narrowing. Mild central canal stenosis with an AP canal diameter is 8 mm. Prominent dorsal epidural lipomatosis. Small posterior annular bulging disc. Normal bilateral lateral recesses. Mild to moderate bilateral degenerative facet arthropathy. Moderately pronounced stenosis of the left intervertebral neural foramen is unchanged. Mild to moderate stenosis of the right intervertebral neural foramen is unchanged. Normal visualized sacral ala. Normal visualized paraspinous soft tissue structures. MRI/Spine Lumbar (Routine) IMPRESSION: 1. No MRI evidence of lumbar extruded disc fragment. 2. Moderately pronounced flattening central canal stenosis at the L1-L2 disc space level with an AP canal diameter of 5.6 mm is a new finding along with minimal degenerative anterolisthesis of L1 on L2, left posterior paramedian and slightly cephalad disc protrusion, moderate stenosis of the left intervertebral neural foramen and progression of bilateral L1-L2 degenerative facet arthropathy which are now more moderately pronounced. 3. Moderate central canal stenosis at L2-L3 disc space level with an AP canal diameter of 7 mm, previously 9.6 mm and progression of right L2-3 degenerative facet arthropathy which is now moderate. 4. No significant interval change at the L3-L4, L4-L5 and L5-S1 disc space levels as described above in greater detail. Electronically Signed: Chuck Pyle MD at 12:35 EDT , Service support ,
== END ==
PROVIDERS: PCP Family Medicine; Referring Provider Nurse Practitioner Family; Visit Provider Nurse Practitioner Family
DX: M54.17 Radiculopathy, lumbosacral region (principal); M51.37 Other intervertebral disc degeneration, lumbosacral region; M47.817 Spondylosis without myelopathy or radiculopathy, lumbosacral region
CPT/HCPCS: 72148

== ENCOUNTER 2020-11-28 07:46 | Emergency (ER) | payer MEDICARE, MEDICAID, SELFPAY ==
[2020-11-28 07:47] VITALS: BP 137/99; PULSE 113; RESP 16; TEMP 36.4; O2SAT 98; BMI 31.8
--- NOTE | 2020-11-28 08:07 | EDS_ITS ---
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 Patient states that people are trying to harm me. He states I am 1 step ahead of them. Patient states this is been going on since he was 25 years old. He is trying to not go to sleep because he is concerned if he goes asleep but they will get him. He denies being suicidal or homicidal. He admits that he has a psychiatric history. He would like to speak to a psychiatrist. Prior similar symptoms: Yes Recent Illness/Hospitalization: No PFSH PFSH Medical History Chronic low back pain with bilateral sciatica Current smoker Depression History of attempted suicide Mental retardation Neuropathy Obesity (BMI 30-39.9) OD (overdose of drug) Speech impediment Home Medications bupropion HCl 75 mg PO DAILY 06/18/15 [History Last Taken 06/17/15] gabapentin 400 mg PO TIDCM 06/18/15 [History Last Taken 07/27/17 04:00] clonazepam 1 mg PO QHS PRN PRN 07/27/17 [History Last Taken 07/27/17 04:00] cholecalciferol (vitamin D3) 1,250 mcg (50,000 unit) capsule 50,000 unit PO QWEEK 07/09/18 [History Last Taken Unknown] dextroamphetamine-amphetamine 10 mg tablet 10 mg PO DAILY 07/09/18 [History Last Taken Unknown] mirtazapine 30 mg tablet 30 mg PO QHS 07/09/18 [History Last Taken Unknown] omeprazole 40 mg capsule,delayed release 40 mg PO DAILY 07/09/18 [History Last Taken Unknown] Allergy/AdvReac Type Severity Reaction Status Date / Time No Known Allergies Allergy Verified 07/26/18 14:58 Family History Mother Colon cancer Surgical History History of melanoma excision Social History Smoking Status: Current every day smoker tobacco type: cigarettes ROS ROS ED ROS Narrative Patient denies any recent illness. Review of Systems ROS Unobtainable: Denies due to encephalopathy Constitutional Constitutional ED: Denies fever(s) Eyes Eyes: Denies change in vision ENT ENT ED: Denies ear pain or sore throat Cardiovascular Cardiovascular: Denies chest pain or palpitations Respiratory/Chest Respiratory/Chest: Denies dyspnea Gastrointestinal Gastrointestinal: Denies abdominal pain, diarrhea, nausea or vomiting Genitourinary Genitourinary ED: Denies dysuria Integumentary Denies rash Neurologic Neurologic: Denies headache(s) Psychiatric Psychiatric: Denies depression Endocrine Endocrinology: Denies polyuria Hematologic/Lymphatic Hematologic/Lymphatic: Denies easy bruising Allergic/Immunologic Allergic/Immunologic ED: Denies urticaria EXAM Physical Exam Narrative Exam Narrative: 60-year-old male. No acute distress. Vital signs stable afebrile. No smell of alcohol. No obvious signs of toxidrome. Currently cooperative. Makes eye contact. Currently not violent or combative. Otherwise exam unremarkable. Const Vital Signs: 11/28/20 07:47 11/28/20 09:56 11/28/20 11:56 Temperature 97.6 F L Temperature Source Temporal Pulse Rate 113 H Respiratory Rate 16 16 16 Blood Pressure 137/99 H Blood Pressure Mean 111 Pulse Ox 98 Oxygen Delivery Method Room Air Positive well nourished and well developed General Appearance ED: well developed HEENT Reports moist mucous membranes normocephalic and atraumatic; Negative for trauma or tenderness Eyes PERRL and EOMs intact bilaterally Neck no lymphadenopathy, supple and no JVD Resp normal respiratory effort and clear to auscultation bilaterally Cardio no murmurs Rate: tachycardic Rhythm: regular rhythm GI non-tender, non-distended and no masses Auscultation: normoactive bowel sounds Palpation: soft Back/Spine no CVA tenderness Extremity normal to inspection Extremity Narrative: Multiple tattoos over his body. General Extremety ED: Negative for edema or tenderness General Extremity: Negative for edema Neuro oriented x3 Sensorium / Orientation: alert, oriented to person, oriented to place and oriented to time Motor Exam: strength 5/5 throughout; Negative for general weakness or strength abnormal Psych cooperative, speech normal, denies homicidal ideation and denies suicidal ideation Appearance: grossly normal Attitude: calm Activity / Motor Behavior: appropriate eye contact Speech: normal speech Skin Lesions: no lesions Rashes: no rashes MDM MDM MDM Narrative Medical decision making narrative: 60-year-old male history of paranoid schizophrenia for years. Today was at his sister's house and police were called to bring him in the emergency department. Currently he is cooperative. He will undergo an ED mental health evaluation and speak to the social and human services assistant. After his labs and that evaluation takes place will make a decision on psychiatric care plan. Repeat exam patient is doing well at 9:08 AM. Patient had long discussion with our social and human services assistant. At 1258 is doing well. He admitted to using methamphetamines yesterday which initially did not tell me. Currently he is calm. He is acting much more normally. He is not suicidal. He will be discharged home with follow-up appointment. Our social and human services assistant is trying to contact his mental health provider. Lab Data Attestation: I reviewed the patient's lab results. Lab results narrative: CBC unremarkable white count 10. Hemoglobin 16. Chemistries unremarkable and potassium 3.1. Normal gap of 5. Normal creatinine. Glucose 110. Tox screen positive for amphetamines, methamphetamines and marijuana. Alcohol negative. Labs: Laboratory Results - last 24 hr 11/28/20 11/28/20 11/28/20 08:20 08:20 08:20 WBC 10.3 RBC 4.63 Hgb 16.0 Hct 46.7 MCV 100.9 H MCH 34.6 H MCHC 34.3 RDW Std Deviation 43.7 RDW Coeff of Dacia 11.9 Plt Count 202 MPV 10.1 Immature Gran % (Auto) 0.300 Neut % (Auto) 81.7 H Lymph % (Auto) 11.7 L Marinette % (Auto) 5.8 Eos % (Auto) 0.2 Baso % (Auto) 0.3 Absolute Neuts (auto) 8.4 H Absolute Lymphs (auto) 1.20 Nucleated RBC % 0 Sodium 140 Potassium 3.1 L Chloride 109 H Carbon Dioxide 26.0 Anion Gap 5 BUN 18 Creatinine 0.82 Estim Creat Clear Calc 105.15 Est GFR (MDRD) Af Amer 122 Est GFR (MDRD) Non-Af 101 BUN/Creatinine Ratio 21.8 H Glucose 110 H Calcium 8.9 Urine Opiates Screen Urine Methadone Screen Ur Barbiturates Screen Ur Phencyclidine Scrn Ur Amphetamines Screen U Methamphetamin-MDMA U Benzodiazepines Scrn Urine Cocaine Screen U Cannabinoids Screen Ur Drug Screen Comment Ethyl Alcohol < 3.0 11/28/20 08:40 WBC RBC Hgb Hct MCV MCH MCHC RDW Std Deviation RDW Coeff of Dacia Plt Count MPV Immature Gran % (Auto) Neut % (Auto) Lymph % (Auto) Marinette % (Auto) Eos % (Auto) Baso % (Auto) Absolute Neuts (auto) Absolute Lymphs (auto) Nucleated RBC % Sodium Potassium Chloride Carbon Dioxide Anion Gap BUN Creatinine Estim Creat Clear Calc Est GFR (MDRD) Af Amer Est GFR (MDRD) Non-Af BUN/Creatinine Ratio Glucose Calcium Urine Opiates Screen NEGATIVE Urine Methadone Screen NEGATIVE Ur Barbiturates Screen NEGATIVE Ur Phencyclidine Scrn NEGATIVE Ur Amphetamines Screen POSITIVE H U Methamphetamin-MDMA POSITIVE H U Benzodiazepines Scrn NEGATIVE Urine Cocaine Screen NEGATIVE U Cannabinoids Screen POSITIVE H Ur Drug Screen Comment Ethyl Alcohol Discharge Plan Triage Chief Complaint: Mental Health ED Provider: Damaso Donovan Dx/Rx/DC Orders Clinical Impression: Chronic paranoid schizophrenia Instructions: ED Schizoaffective Disorder, ED Schizophrenia, Paranoid Type, ED Schizophrenia, General Prescriptions: No Action omeprazole 40 mg capsule,delayed release(DR/EC) 40 mg PO DAILY RF: 0 mirtazapine [Remeron] 30 mg tablet 30 mg PO QHS RF: 0 dextroamphetamine-amphetamine [Adderall] 10 mg tablet 10 mg PO DAILY RF: 0 cholecalciferol (vitamin D3) 50,000 unit capsule 50,000 unit PO QWEEK RF: 0 bupropion HCl 75 MG tablet 75 mg PO DAILY RF: 0 gabapentin 300 MG capsule 400 mg PO TIDCM RF: 0 clonazepam 1 MG tablet 1 mg PO QHS PRN PRN (Reason: Anxiety) RF: 0 Primary Care Provider: Justice Messer Referrals: Justice Messer MD [Primary Care Provider] - As Needed Activity Restrictions/Additional Instructions: Call and follow-up with your psychiatric health provider as soon as possible. Return if you are feeling worse. Make sure you are taking your medications. Do not use any illegal drugs. Disposition Disposition: Home, self care
[2020-11-28 08:25] LABS: Absolute Neutrophil Count 8.4 X10^3/uL (2.0-7.7); Basophil# 0.03 X10^3/uL; Basophil% 0.3 % (0-1); Eosinophil# 0.02 X10^3/uL; Eosinophils% 0.2 % (0-5); Hematocrit 46.7 % (40-54); Lymphocyte % 11.7 % (19-41); Mean Corp Hgb Conc 34.3 g/dL (32-36); Mean Corpuscular Hgb 34.6 pg (27.0-32.0); Mean Corpuscular Volume 100.9 fL (80-94); Mean Platelet Vol. 10.1 fl (6.2-12.0); Monocyte% 5.8 % (0-10); NRBC Flagged by Analyzer 0 % (0-5); Neutrophil % 81.7 % (47-70); Platelet Count 202 K/mm3 (150-450); RBC Distribution Width CV 11.9 % (11.6-14.6); RBC Distribution Width SD 43.7 fl (35.1-43.9); Red Blood Count 4.63 M/mm3 (4.6-6.2); White Blood Count 10.3 K/mm3 (4.4-11.0)
[2020-11-28 08:39] LABS: Anion Gap 5 (5-15); BUN 18 mg/dL (7-18); BUN/Creat Ratio 21.8 RATIO (10-20); Calcium,Total 8.9 mg/dL (8.5-10.1); Chloride 109 mmol/L (98-107); Creatinine, Serum 0.82 mg/dL (0.70-1.30); EST Glomerular Filtration Rate 101 mL/min (>60); Est Glom Filt Rate - Afr Amer 122 mL/min (>60); Estimated Creatinine Clearance 105.15 ml/min; Glucose 110 mg/dL (74-106); Potassium 3.1 mmol/L (3.5-5.1); Sodium Level 140 mmol/L (136-145)
[2020-11-28 08:58] LABS: Amphetamine Urine VISTA POSITIVE (<1000 ng/mL); Barbiturate Urine VISTA NEGATIVE (< 200 ng/mL); Benzodiazepine Urine VISTA NEGATIVE (< 200 ng/mL); Cocaine Urine VISTA NEGATIVE (< 300 ng/mL); Ecstacy Urine VISTA POSITIVE (< 500 ng/mL); Methadone Urine VISTA NEGATIVE (< 300 ng/mL); PCP Urine VISTA NEGATIVE (< 25 ng/mL); THC Urine VISTA POSITIVE (< 50 ng/mL); Vista UDS pH Range 5
[2020-11-28 09:06] LABS: Alcohol, Blood (Medical)-Serum < 3.0 mg/dL
[2020-11-28 09:56] VITALS: RESP 16
[2020-11-28 11:56] VITALS: RESP 16
--- NOTE | 2020-11-28 11:58 | CM.ED ---
SOCIAL WORK ASSESSMENT Referral Source: Dr. Donovan Reason for Consult: Mental Health Evaluation Chief Compliant: Patient presented to ER with increased paranoia and hallucinations. Patient reported taking increased amount of Adderall so he ?won?t go to sleep.? Marital/Social History: Living Situation: Home with girlfriend, Aliza Support/Resources: Aliza, [facility] History: None Education and Employment History: 9th Grade, unemployed Mental Health Treatment/History: Schizophrenia. Patient treated with medication prescribed by Lida Jiménez. Triggers/Stressors: Patient admits to meth use last night due to ?I saw one of my old friends.? Abuse Issues: Patient denies any history of emotional, physical, or sexual trauma. Substance Abuse History: Patient admits to prior history of drug abuse. Patient states relapsed with meth yesterday. Risk to Self/Others: Suicidal- Patient denies any suicidal ideation, plan, or intent. Homicidal- Patient denies any homicidal ideation. Mental Status Exam: Orientation- A&Ox3 Memory: Fair Appearance/General Behavior: appropriate, calm Mood/Affect: appropriate Communication Pattern: responds to questions Thought Process: appropriate, patient reports had increased paranoia due to meth use General Intellectual Functioning: Average Judgement: fair Insight: good Assessment: Met with patient in room. Introduced role and reason for referral. Patient had been observed in ER for 5 hours prior to this worker completing assessment. Patient admits to relapse with meth yesterday. Patient reports has also been taking an increased amount of Adderall. Patient stating ?I feel like I let my family down. I can?t do that.? Patient upset about relapse. Patient denies any suicidal ideation, plan, or intent. Patient states follows with Lida Jiménez with [facility] through [facility]. Patient feels safe returning home. Patient feeling much better. Patient hoping to follow up with Lida Jiménez from ER visit. Patient gave permission for this worker to contact Psych Services to discuss next appointment and ED visit. Call to [facility], spoke with Yazmin. Yazmin reports patient?s next appointment is January 11 and will put patient on the cancellation list. Patient?s last about with Jessy was November 16. Collaboration with Dr. Donovan. Patient does not require inpatient psych hospitalization at this time. Patient to follow up with [facility]. Plan: Home D. Sotcan, FACTORY MANAGER, [employer]
--- NOTE | 2020-11-28 13:14 | ED.RN ---
pt evaluated by dr. donavon ARTEAGA MD & Dexter DELEON. both believe patient is safe to go home. paranoia made worse by meth use last night. pt instructed to return to ED with worsening symptoms.
[2020-11-28 13:20] VITALS: BP 134/85; PULSE 80; RESP 14; O2SAT 98
== END 2020-11-28 13:21 | disposition home or self-care (01) ==
PROVIDERS: Emergency Provider Emergency Medicine; PCP Family Medicine
DX: F20.0 Paranoid schizophrenia (principal); F17.210 Nicotine dependence, cigarettes, uncomplicated; E66.9 Obesity, unspecified; F32.9 Major depressive disorder, single episode, unspecified; Z79.899 Other long term (current) drug therapy
CPT/HCPCS: 80048; 80307; 82077; 85025; 99282

== ENCOUNTER 2021-01-30 23:44 | Emergency (ER) | payer MEDICARE, MEDICAID, SELFPAY ==
[2021-01-30 23:45] VITALS: BP 176/100; PULSE 106; RESP 18; TEMP 36.4; O2SAT 96; BMI 30.2
--- NOTE | 2021-01-31 01:09 | EX.ED.DYSGE1 ---
HPI History of Present Illness Chief Complaint: Abscess Narrative Narrative: Patient presenting with pain and swelling to the left forearm. He states is been there for a couple of days. He does not remember leaning on his left elbow or having a traumatic injury to it but states he could have injured it while he was dumpster diving. Patient complains of a small amount of redness. He has full range of motion of the left elbow although it hurts on full extension. He has had no systemic signs or symptoms such as fever, chills. Patient also does state that he has an area on his right thigh on the lateral aspect which is also become a little red. He states he has a distant history of MRSA. He denies any injury to that area either. [facility] Medical History Chronic low back pain with bilateral sciatica Current smoker Depression History of attempted suicide Mental retardation Neuropathy Obesity (BMI 30-39.9) OD (overdose of drug) Speech impediment Home Medications cholecalciferol (vitamin D3) 1,250 mcg (50,000 unit) capsule 50,000 unit PO QWEEK 07/09/18 [History Last Taken Unknown] mirtazapine 30 mg tablet 30 mg PO QHS 07/09/18 [History Last Taken Unknown] omeprazole 40 mg capsule,delayed release 40 mg PO DAILY 07/09/18 [History Last Taken Unknown] albuterol sulfate 1 puff INHALATION Q4H PRN PRN 01/31/21 [History Last Taken Unknown] clindamycin HCl 450 mg PO TID 10 Days #90 cap 01/31/21 [Rx Last Taken Unknown] clonazepam 1 mg PO BID 01/31/21 [History Last Taken Unknown] dextroamphetamine-amphetamine 15 mg PO DAILY 01/31/21 [History Last Taken Unknown] fluticasone propion-salmeterol [Advair HFA] 2 puff INHALATION BID 01/31/21 [History Last Taken Unknown] gabapentin 800 mg PO Q6H 01/31/21 [History Last Taken Unknown] Allergy/AdvReac Type Severity Reaction Status Date / Time No Known Allergies Allergy Verified 07/26/18 14:58 Family History Mother Colon cancer Surgical History History of melanoma excision Social History Smoking Status: Current every day smoker tobacco type: cigarettes ROS ROS ED Constitutional Constitutional ED: Denies chills or fever(s) Eyes Eyes: Denies blurry vision or diplopia ENT ENT ED: Denies rhinorrhea or sore throat Cardiovascular Cardiovascular: Denies chest pain or palpitations Respiratory/Chest Respiratory/Chest: Denies cough or dyspnea Gastrointestinal Gastrointestinal: Denies abdominal pain, nausea or vomiting Genitourinary Genitourinary ED: Denies dysuria or hematuria Musculoskeletal Musculoskeletal: Reports other Details: Left elbow pain Integumentary Reports other Details: Erythematous area to right lateral thigh Neurologic Neurologic: Denies headache(s) or paresthesias EXAM Physical Exam Const Vital Signs: 01/30/21 23:45 Temperature 97.6 F L Temperature Source Temporal Pulse Rate 106 H Respiratory Rate 18 Blood Pressure 176/100 H Blood Pressure Mean 125 Pulse Ox 96 Oxygen Delivery Method Room Air Positive well nourished General Appearance ED: NAD HEENT Reports moist mucous membranes Negative for trauma Eyes PERRL and EOMs intact bilaterally Resp normal respiratory effort and clear to auscultation bilaterally Cardio regular rate and regular rhythm Extremity Extremity Narrative: Erythema and slight swelling of the left elbow. This is not indurated or hot. It is focally over the tip of the olecranon. There is no lymphangitic streaking. Patient has full range of motion of the left elbow and no pain with short arc range of motion. Pain with full extension. Neuro oriented x3 Sensorium / Orientation: alert Skin Skin Narrative: 1.5 cm circular area of erythema on the right lateral thigh which is not indurated, hot, fluctuant. It is not tender to palpation. MDM MDM MDM Narrative Medical decision making narrative: Patient presenting with area on his right leg which she is concerned is getting infected. This is mildly red but not hot or indurated. He states he has a history of MRSA and is concerned he might develop an abscess. Patient also has complaint of left elbow pain and swelling. He has no pain with short arc range of motion. Is minimally tender. He is able to range the elbow with a full range of motion with elicited pain on full extension. I do not believe this is an intra-articular infection. I do not believe he has an infected bursitis based on the fact that it is only minimally red and not hot or indurated. There is also no lymphangitic streaking. Patient will be placed in Mathew wrap for this. Given his concern for cellulitis/abscess I will start him on clindamycin. He is given a first dose in the ED. He is given wound care instructions and return precautions. Impression: 1. Right thigh early cellulitis 2. Left elbow bursitis noninfected Discharge Plan Triage Chief Complaint: Abscess ED Provider: Andrew Howell Dx/Rx/DC Orders Instructions: ED Bursitis, ED Cellulitis Prescriptions: New clindamycin HCl 150 mg capsule 450 mg PO TID 10 Days Qty: 90 RF: 0 No Action omeprazole 40 mg capsule,delayed release(DR/EC) 40 mg PO DAILY RF: 0 mirtazapine [Remeron] 30 mg tablet 30 mg PO QHS RF: 0 cholecalciferol (vitamin D3) 50,000 unit capsule 50,000 unit PO QWEEK RF: 0 clonazepam 1 mg tablet 1 mg PO BID RF: 0 gabapentin 800 mg tablet 800 mg PO Q6H RF: 0 dextroamphetamine-amphetamine 15 mg tablet 15 mg PO DAILY RF: 0 albuterol sulfate 90 mcg/actuation HFA aerosol inhaler 1 puff INHALATION Q4H PRN PRN (Reason: Wheezing) RF: 0 Advair HFA 115-21 mcg/actuation HFA aerosol inhaler 2 puff INHALATION BID RF: 0 Primary Care Provider: Justice Messer Referrals: Justice Messer MD [Primary Care Provider] - Disposition Disposition: Home, Self Care
[2021-01-31] MEDS: Clindamycin HCl 150 MG Capsule 450 MG PO (01:20)
== END 2021-01-31 06:08 | disposition home or self-care (01) ==
LOC: ED 01-31 01:11
PROVIDERS: Emergency Provider Student in an Organized Health Care Education/Training Program; PCP Family Medicine
DX: L03.115 Cellulitis of right lower limb (principal); M70.32 Other bursitis of elbow, left elbow; F17.210 Nicotine dependence, cigarettes, uncomplicated; Z79.51 Long term (current) use of inhaled steroids; Z79.899 Other long term (current) drug therapy; Z86.14 Personal history of Methicillin resistant Staphylococcus aureus infection
CPT/HCPCS: 99283

== ENCOUNTER → 2021-02-27 12:16 | Outpatient (CLI) | payer MEDICARE, MEDICAID, SELFPAY ==
--- NOTE | 2021-02-27 12:21 | RAD_ITS ---
STUDY: X-RAY - RIGHT SHOULDER REASON FOR EXAM: Male, 61 years old. PAIN TECHNIQUE: 4 view(s) of the shoulder. COMPARISON: 07/25/2020 FINDINGS: Normal glenohumeral articulation. Normal acromioclavicular joint. Normal acromion. Normal humeral head and visualized proximal humerus. The soft tissue structures are unremarkable. Normal visualized pulmonary apex. RAD/Shoulder min 2 Views IMPRESSION: Within normal limits x-ray examination of the shoulder. Electronically Signed: Diana Castellano MD at 12:50 EDT Tel , Service support ,
--- NOTE | 2021-02-27 12:21 | RAD_ITS ---
STUDY: X-RAY - CERVICAL SPINE REASON FOR EXAM: Male, 61 years old. NECK PAIN TECHNIQUE: 5 view(s) of the cervical spine were obtained. COMPARISON: None FINDINGS: Normal anterior atlantoaxial articulation. Normal odontoid process. Normal cervical lordosis. There is multi-level endplate spondylosis. There is multi-level degenerative disc disease with multilevel disc space narrowing. There is multi-level osseous foraminal stenosis. The soft tissue structures are unremarkable. RAD/Cerv Spine 4 or 5 Views IMPRESSION: Multilevel degenerative changes. Electronically Signed: Diana Castellano MD at 13:00 EDT Tel , Service support ,
== END ==
PROVIDERS: PCP Family Medicine; Referring Provider Family Medicine; Visit Provider Family Medicine
DX: M54.2 Cervicalgia (principal); M25.511 Pain in right shoulder
CPT/HCPCS: 72050; 73030

== ENCOUNTER 2021-05-26 09:14 | Emergency (ER) | payer MEDICARE, MEDICAID, SELFPAY ==
[2021-05-26] VITALS (11 sets, daily range): BP systolic 109–162; BP diastolic 69–102; PULSE 82–86; RESP 14–20; TEMP 35.9; O2SAT 97–100; BMI 31.4
--- NOTE | 2021-05-26 09:19 | EKG12_ITS ---
Test Reason : Blood Pressure : / mmHG Vent. Rate : 080 BPM Atrial Rate : 080 BPM P-R Int : 182 ms QRS Dur : 092 ms QT Int : 394 ms P-R-T Axes : 048 -44 037 degrees QTc Int : 454 ms Normal sinus rhythm Left axis deviation Abnormal ECG Confirmed by ABHIJEET MCGREGOR, MONROE ([id number]), rewrite editor JOSEMANUEL CARRILLO ([id number]) on 05/29/2021 11:08:06 AM Referred By: RADHA Confirmed By:MONROE JHA MD
--- NOTE | 2021-05-26 09:21 | ED.RN ---
Patient was found standing at neighbors empty truck with a machete yelling at the passenger side. Paranoid behavior as described by [facility]. Feels dogs and women are sneaking into home to get him. The women re allowing the dogs to bite him. [id number] states this is not normal speech or conversation. Access to many knives, an axe, and weapons at home. Denies suicidal/homicidal ideations.
[2021-05-26 10:08] LABS: Absolute Lymphocyte Count 1.72 X10^3/uL (0.83-4.51); Basophil# 0.04 X10^3/uL; Basophil% 0.5 % (0-1); Eosinophil# 0.08 X10^3/uL; Eosinophils% 1.1 % (0-5); Hematocrit 46.5 % (40-54); Hemoglobin 15.9 g/dL (13.0-16.5); Lymphocyte # 1.72 X10^3/ul (0.83-4.51); Lymphocyte % 23.1 % (19-41); Mean Corp Hgb Conc 34.2 g/dL (32-36); Mean Corpuscular Hgb 33.6 pg (27.0-32.0); Mean Corpuscular Volume 98.3 fL (80-94); Monocyte# 0.54 X10^3/uL; Monocyte% 7.3 % (0-10); NRBC Flagged by Analyzer 0 % (0-5); Neutrophil # 5.04 X10^3/uL (2.7-7.7); Neutrophil % 67.9 % (47-70); Platelet Count 201 K/mm3 (150-450); RBC Distribution Width CV 12.2 % (11.6-14.6); RBC Distribution Width SD 44.1 fl (35.1-43.9); Red Blood Count 4.73 M/mm3 (4.6-6.2); White Blood Count 7.4 K/mm3 (4.4-11.0)
[2021-05-26 10:20] LABS: Anion Gap 5 (5-15); BUN 12 mg/dL (7-18); BUN/Creat Ratio 15.6 RATIO (10-20); Calcium,Total 9.3 mg/dL (8.5-10.1); Chloride 106 mmol/L (98-107); Creatinine, Serum 0.77 mg/dL (0.70-1.30); EST Glomerular Filtration Rate 109 mL/min (>60); Est Glom Filt Rate - Afr Amer 132 mL/min (>60); Estimated Creatinine Clearance 110.58 ml/min; Glucose 77 mg/dL (74-106); Potassium 3.6 mmol/L (3.5-5.1); Sodium Level 139 mmol/L (136-145)
[2021-05-26 10:37] LABS: Alcohol, Blood (Medical)-Serum < 3.0 mg/dL
--- NOTE | 2021-05-26 11:06 | EX.ED.VIS.PS ---
HPI HPI - Psych History of Present Illness Chief Complaint: Mental Health Narrative Narrative: 61-year-old male with documented history of MR, schizophrenia presenting via [facility] for waving a hammer and a machete in his neighbors backyard. Apparently he was talking to someone who was in a car who and it was empty. The neighbor witnessed this. Patient himself states that he does not have any homicidal or suicidal ideation. He has been off his schizophrenic medication for months and states he does not want to take this. He does admit to doing methamphetamine yesterday as well. He denies other drugs. PFSH PFS Medical History Chronic low back pain with bilateral sciatica Current smoker Depression History of attempted suicide Mental retardation Neuropathy Obesity (BMI 30-39.9) OD (overdose of drug) Speech impediment Home Medications cholecalciferol (vitamin D3) 1,250 mcg (50,000 unit) capsule 50,000 unit PO QWEEK 07/09/18 [History Last Taken Unknown] mirtazapine 30 mg tablet 30 mg PO QHS 07/09/18 [History Last Taken Unknown] omeprazole 40 mg capsule,delayed release 40 mg PO DAILY 07/09/18 [History Last Taken Unknown] albuterol sulfate 1 puff INHALATION Q4H PRN PRN 01/31/21 [History Last Taken Unknown] clindamycin HCl 450 mg PO TID 10 Days #90 cap 01/31/21 [Rx Last Taken Unknown] clonazepam 1 mg PO BID 01/31/21 [History Last Taken Unknown] dextroamphetamine-amphetamine 15 mg PO DAILY 01/31/21 [History Last Taken Unknown] fluticasone propion-salmeterol [Advair HFA] 2 puff INHALATION BID 01/31/21 [History Last Taken Unknown] gabapentin 800 mg PO Q6H 01/31/21 [History Last Taken Unknown] Allergy/AdvReac Type Severity Reaction Status Date / Time No Known Allergies Allergy Verified 05/26/21 09:19 Family History Mother Colon cancer Surgical History History of melanoma excision Social History Smoking Status: Current every day smoker tobacco type: cigarettes ROS ROS ED Constitutional Constitutional ED: Denies chills or fever(s) Eyes Eyes: Denies blurry vision or change in vision ENT ENT ED: Denies ear pain, rhinorrhea or sore throat Cardiovascular Cardiovascular: Denies palpitations or racing heartbeat Respiratory/Chest Respiratory/Chest: Denies cough or dyspnea Gastrointestinal Gastrointestinal: Denies abdominal pain, nausea or vomiting Genitourinary Genitourinary ED: Denies dysuria or hematuria Musculoskeletal Musculoskeletal: Denies arthralgias or myalgias Integumentary Denies abscess or rash Neurologic Neurologic: Denies headache(s) or weakness Psychiatric Psychiatric: Denies depression, suicidal ideation or suicidal thoughts EXAM Physical Exam Const Vital Signs: 05/26/21 09:15 05/26/21 14:31 05/26/21 15:00 Temperature 96.7 F L Temperature Source Temporal Pulse Rate 85 86 Respiratory Rate 16 20 H 16 Blood Pressure 162/102 H 160/88 H Blood Pressure Mean 122 112 Pulse Ox 100 98 Oxygen Delivery Method Room Air Room Air 05/26/21 16:00 Temperature Temperature Source Pulse Rate Respiratory Rate 15 Blood Pressure Blood Pressure Mean Pulse Ox Oxygen Delivery Method Positive well nourished General Appearance ED: NAD; Negative for pallor HEENT Reports moist mucous membranes normocephalic and atraumatic Eyes PERRL and EOMs intact bilaterally Resp normal respiratory effort and clear to auscultation bilaterally Cardio Rate: regular rate Rhythm: regular rhythm Neuro oriented x3 and CN's II-XII intact bilaterally Sensorium / Orientation: alert Psych mental status grossly normal, denies homicidal ideation and denies suicidal ideation Skin General Skin Exam: Negative for jaundice or pallor MDM MDM MDM Narrative Medical decision making narrative: Patient denies being suicidal or homicidal but he is schizophrenic and denies taking his medications. He was found in someone else's backyard holding a machete and a hammer and having a heated argument with an empty car so I believe he was hallucinating. He does admit to methamphetamine use and his urinalysis is positive for this. It is unclear how safe it is for himself or to others to send him home in this condition. His neighbors obviously expressed concern enough to call the police. His blood work is normal otherwise. EtOH is negative. After speaking with crisis we agreed that the patient needs to be inpatient. Patient was pink slipped. Patient became aggressive and agitated because he did not want to have to stay and had to be restrained in four-point restraints. He was given Geodon. Patient will be reevaluated. He is medically clear for psychiatric evaluation further. Impression: 1. History schizophrenia 2. Medication noncompliance 3. Confusion Lab Data Labs: Laboratory Results - last 24 hr 05/26/21 05/26/21 05/26/21 09:50 09:50 09:50 WBC 7.4 RBC 4.73 Hgb 15.9 Hct 46.5 MCV 98.3 H MCH 33.6 H MCHC 34.2 RDW Std Deviation 44.1 H RDW Coeff of Dacia 12.2 Plt Count 201 MPV 10.0 Immature Gran % (Auto) 0.100 Neut % (Auto) 67.9 Lymph % (Auto) 23.1 [place] % (Auto) 7.3 Eos % (Auto) 1.1 Baso % (Auto) 0.5 Absolute Neuts (auto) 5.0 Absolute Lymphs (auto) 1.72 Nucleated RBC % 0 Sodium 139 Potassium 3.6 Chloride 106 Carbon Dioxide 28.0 Anion Gap 5 BUN 12 Creatinine 0.77 Estim Creat Clear Calc 110.58 Est GFR (MDRD) Af Amer 132 Est GFR (MDRD) Non-Af 109 BUN/Creatinine Ratio 15.6 Glucose 77 Calcium 9.3 Urine Opiates Screen Urine Methadone Screen Ur Barbiturates Screen Ur Phencyclidine Scrn Ur Amphetamines Screen U Methamphetamin-MDMA U Benzodiazepines Scrn Urine Cocaine Screen U Cannabinoids Screen Ur Drug Screen Comment Ethyl Alcohol < 3.0 05/26/21 11:00 WBC RBC Hgb Hct MCV MCH MCHC RDW Std Deviation RDW Coeff of Dacia Plt Count MPV Immature Gran % (Auto) Neut % (Auto) Lymph % (Auto) [place] % (Auto) Eos % (Auto) Baso % (Auto) Absolute Neuts (auto) Absolute Lymphs (auto) Nucleated RBC % Sodium Potassium Chloride Carbon Dioxide Anion Gap BUN Creatinine Estim Creat Clear Calc Est GFR (MDRD) Af Amer Est GFR (MDRD) Non-Af BUN/Creatinine Ratio Glucose Calcium Urine Opiates Screen NEGATIVE Urine Methadone Screen NEGATIVE Ur Barbiturates Screen NEGATIVE Ur Phencyclidine Scrn NEGATIVE Ur Amphetamines Screen POSITIVE H U Methamphetamin-MDMA POSITIVE H U Benzodiazepines Scrn NEGATIVE Urine Cocaine Screen NEGATIVE U Cannabinoids Screen NEGATIVE Ur Drug Screen Comment Ethyl Alcohol Discharge Plan Triage Chief Complaint: Mental Health ED Provider: Andrew Howell Dx/Rx/DC Orders Prescriptions: No Action omeprazole 40 mg capsule,delayed release(DR/EC) 40 mg PO DAILY RF: 0 mirtazapine [Remeron] 30 mg tablet 30 mg PO QHS RF: 0 cholecalciferol (vitamin D3) 50,000 unit capsule 50,000 unit PO QWEEK RF: 0 clonazepam 1 mg tablet 1 mg PO BID RF: 0 gabapentin 800 mg tablet 800 mg PO Q6H RF: 0 dextroamphetamine-amphetamine 15 mg tablet 15 mg PO DAILY RF: 0 albuterol sulfate 90 mcg/actuation HFA aerosol inhaler 1 puff INHALATION Q4H PRN PRN (Reason: Wheezing) RF: 0 Advair HFA 115-21 mcg/actuation HFA aerosol inhaler 2 puff INHALATION BID RF: 0 clindamycin HCl 150 mg capsule 450 mg PO TID 10 Days Qty: 90 RF: 0 Primary Care Provider: Justice Messer
[2021-05-26 11:24] LABS: Amphetamine Urine VISTA POSITIVE (<1000 ng/mL); Barbiturate Urine VISTA NEGATIVE (< 200 ng/mL); Benzodiazepine Urine VISTA NEGATIVE (< 200 ng/mL); Cocaine Urine VISTA NEGATIVE (< 300 ng/mL); Ecstacy Urine VISTA POSITIVE (< 500 ng/mL); Methadone Urine VISTA NEGATIVE (< 300 ng/mL); PCP Urine VISTA NEGATIVE (< 25 ng/mL); THC Urine VISTA NEGATIVE (< 50 ng/mL); Vista UDS pH Range 7
--- NOTE | 2021-05-26 11:59 | ED.RN ---
PT STATES WILL NOT STAY PAST 1:30. STATES WILL WALK OUT
--- NOTE | 2021-05-26 12:03 | NURSING ---
CALLED [facility]. ANSWERING SERVICE WILL HAVE [facility] CALL BACK
--- NOTE | 2021-05-26 12:20 | NURSING ---
FAXED CHART TO [facility], CESAR, TALKING TO PATIENT
--- NOTE | 2021-05-26 13:38 | ED.RN ---
PER DAVID, PT TO BE PLACED INPATIENT. PT NOT HAPPY AT THIS TIME. [facility]FERRAL TO [facility] PER [facility] HERNANDEZ.
[2021-05-26] MEDS: Ziprasidone IM 20 MG/ML VIAL IM (14:30)
--- NOTE | 2021-05-26 14:32 | ED.RN ---
PT INFORMED BY [facility] CRISES WORKER PERCY THAT HE IS TO BE PLACED IN A MENTAL HEALTH FACILITY, AND IS PINK SLIPPED. PT BECOMES ANGRY AND ARGUMENTATIVE WITH WORKER. PT IN ROOM SITTING IN CHAIR.,YELLING AT CRISES WORKER. DEPUTY SHERIFF GOMEZ CONTACTED AND [place] [employer] DEPARTMENT CALLED FOR BACKUP-PT ATTEMPTED TO LEAVE DEPARTMENT. STOPPED AND REFUSED TO RETURN TO ROOM. PT SITTING ON FLOOR.PT FINALLY BACK TO ROOM. ORDER FOR [facility] RECEIVED. [place] [employer] IN DEPARTMENT TO ASSIST. PT EVENTUALLY IS COOPERATIVE AND REMOVES CLOTHES AND CHANGES INTO A GOWN. PT GIVEN MEDS TO LEFT BICEP. PT REMAINS ANGRY BUT IS COOPERATIVE WITH STAFF. NO RESTRAINTS USED
--- NOTE | 2021-05-26 22:34 | ED.RN ---
crisis called in and stated clint mehta denied pt
--- NOTE | 2021-05-26 23:23 | NURSING ---
ACCEPTED TO [facility] BY [facility] DUAL DIAGNOSIS UNIT [phone] NURSE TO NURSE
[2021-05-27] VITALS (11 sets, daily range): BP systolic 121–154; BP diastolic 60–94; PULSE 70–92; RESP 14–16; O2SAT 97–99
== END 2021-05-27 12:20 ==
PROVIDERS: Emergency Provider Student in an Organized Health Care Education/Training Program; PCP Family Medicine
DX: F20.9 Schizophrenia, unspecified (principal); R41.0 Disorientation, unspecified; F17.210 Nicotine dependence, cigarettes, uncomplicated; Z91.14 Patient's other noncompliance with medication regimen
CPT/HCPCS: 36415; 80048; 80307; 82077; 85025; 87426; 93005; 96372; 99285; A4216; J3486

== ENCOUNTER 2021-09-05 10:14 | Outpatient (CLI) | payer MEDICARE, MEDICAID, SELFPAY ==
--- NOTE | 2021-09-05 10:17 | RAD_ITS ---
STUDY: X-RAY - RIGHT KNEE REASON FOR EXAM: Male, 61 years old. Pain. TECHNIQUE: 4 view(s) of the knee. COMPARISON: None. FINDINGS: Mild osteopenia. Normal visualized distal femur. Normal visualized proximal tibia and fibula. Normal proximal tibiofibular articulation. Mild medial compartmental arthrosis with small osteophytes. Normal lateral femorotibial compartment. Slight lateral tilt and subluxation of the patella with mild thinning of the articular cartilage of the lateral patellofemoral compartment. The soft tissue structures are unremarkable. RAD/Knee 4 or More Views IMPRESSION: Osteopenia with medial and patellofemoral compartment arthrosis. No acute finding. Electronically Signed: Saurabh Doherty MD at 11:53 EDT ,
== END 2021-09-05 23:59 | disposition home or self-care (01) ==
PROVIDERS: PCP Family Medicine; Referring Provider Family Medicine; Visit Provider Family Medicine
DX: M25.569 Pain in unspecified knee (principal)
CPT/HCPCS: 73564

== ENCOUNTER 2022-07-23 14:04 | Emergency (ER) | payer MEDICARE, MEDICAID, SELFPAY ==
[2022-07-23 14:04] VITALS: BP 116/79; PULSE 98; RESP 16; TEMP 36.8; O2SAT 97; BMI 31.7
--- NOTE | 2022-07-23 14:09 | EKG12_ITS ---
Test Reason : [facility] Blood Pressure : / mmHG Vent. Rate : 090 BPM Atrial Rate : 090 BPM P-R Int : 164 ms QRS Dur : 082 ms QT Int : 366 ms P-R-T Axes : 039 -40 051 degrees QTc Int : 447 ms Normal sinus rhythm Left axis deviation Abnormal ECG Confirmed by NASEEM MCGREGRO, HAMLET ([id number]), editorial intern JOSEMANUEL CARRILLO ([id number]) on 07/25/2022 10:14:21 AM Referred By: Confirmed By:HAMLET GUSMAN MD
--- NOTE | 2022-07-23 14:32 | CM.ED ---
ADRIENNE was updated by Moira, vp purchasing, that patient presented to the ED to go to [facility]. Moira said that patient said that the associate juvenile court judge ordered him to [facility] to determine if he is competent. Moira said that patient reports that they are holding a bed and he came to the ED to get medically clear. ADRIENNE spoke to Taya at [facility]. Taya said that patient is court ordered to go to [facility] for baptism. Patient has a bed at [facility] and they are open and ready for when patient is medically cleared. ADRIENNE updated Moira in Triage. ADRINENE updated dry pan charger Loreta. Susan CHAN
[2022-07-23 14:40] LABS: Absolute Neutrophil Count 5.4 X10^3/uL (2.0-7.7); Basophil# 0.06 X10^3/uL; Basophil% 0.7 % (0-1); Eosinophil# 0.09 X10^3/uL; Hematocrit 42.5 % (40-54); Hemoglobin 14.9 g/dL (13.0-16.5); Lymphocyte % 30.1 % (19-41); Mean Corp Hgb Conc 35.1 g/dL (32-36); Mean Corpuscular Hgb 34.8 pg (27.0-32.0); Mean Corpuscular Volume 99.3 fL (80-94); Mean Platelet Vol. 9.8 fl (6.2-12.0); Monocyte# 0.74 X10^3/uL; Monocyte% 8.2 % (0-10); NRBC Flagged by Analyzer 0 % (0-5); Neutrophil # 5.37 X10^3/uL (2.7-7.7); Neutrophil % 59.8 % (47-70); Platelet Count 241 K/mm3 (150-450); RBC Distribution Width CV 12.3 % (11.6-14.6); RBC Distribution Width SD 44.6 fl (35.1-43.9); Red Blood Count 4.28 M/mm3 (4.6-6.2)
[2022-07-23 14:53] LABS: Anion Gap 9 (5-15); BUN 16 mg/dL (7-18); BUN/Creat Ratio 17.2 RATIO (10-20); Calcium,Total 9.4 mg/dL (8.5-10.1); Chloride 109 mmol/L (98-107); Creatinine, Serum 0.93 mg/dL (0.70-1.30); EST Glomerular Filtration Rate 88 mL/min (>60); Est Glom Filt Rate - Afr Amer 106 mL/min (>60); Estimated Creatinine Clearance 90.39 ml/min; Glucose 102 mg/dL (74-106); Potassium 3.7 mmol/L (3.5-5.1); Sodium Level 140 mmol/L (136-145)
[2022-07-23 15:33] LABS: Amphetamine Urine VISTA POSITIVE (<1000 ng/mL); Barbiturate Urine VISTA NEGATIVE (< 200 ng/mL); Benzodiazepine Urine VISTA NEGATIVE (< 200 ng/mL); Cocaine Urine VISTA NEGATIVE (< 300 ng/mL); Ecstacy Urine VISTA POSITIVE (< 500 ng/mL); Methadone Urine VISTA NEGATIVE (< 300 ng/mL); PCP Urine VISTA NEGATIVE (< 25 ng/mL); THC Urine VISTA NEGATIVE (< 50 ng/mL); Vista UDS pH Range 5
--- NOTE | 2022-07-23 16:05 | CM.ED ---
ADRIENNE called Johnnie at [facility] and advised that patient is in the ED waiting room but has not been seen yet. Johnnie said that they need EKG, CMP, CBC, alcohol/urine, COVID and vitals. Johnnie said that once the information is faxed to [phone] then transportation can be set up. Johnnie said that there is no accepting MD as patient is court ordered to [place]. Susan CHAN
--- NOTE | 2022-07-23 16:12 | CM.ED ---
ADRIENNE faxed labs and EKG along with vitals to [place]. Susan CHAN
--- NOTE | 2022-07-23 16:44 | CM.ED ---
ADRIENNE spoke to Johnnie at [place]. Johnnie said that technically patient can drive himself to [place] as the court order does not specify how he gets to [place] but the preferred choice would be that the hospital sets up transportation for patient to [place]. Johnnie said especially as he was positive for opiates and alcohol. ADRIENNE updated DESTINY Bray. ADRIENNE was advised that patient left the ED. Susan CHAN
--- NOTE | 2022-07-23 16:50 | EDS_ITS ---
HPI HPI - Psych History of Present Illness Chief Complaint: Mental Health Narrative Narrative: 62-year-old male, past medical history of schizoaffective disorder, MRDD, presents with his nephew for medical clearance. He states that the feed crusher operator ordered him to go to [facility] facility. There was not a bed available for 2 weeks. He received a phone call yesterday that he had to be there today by 2 PM. He states he came appear at 11 AM with his nephew for medical clearance. He told the RN that he felt short of breath and lost his sense of taste and smell. [facility] Medical History (Updated 07/23/22 @ 17:54 by Chuck Aguirre MD) Chronic low back pain with bilateral sciatica Current smoker Depression History of attempted suicide Mental retardation Neuropathy Obesity (BMI 30-39.9) OD (overdose of drug) Speech impediment Home Medications cholecalciferol (vitamin D3) 1,250 mcg (50,000 unit) capsule 50,000 unit PO QWEEK 07/09/18 [History Last Taken Unknown] mirtazapine 30 mg tablet (Remeron) 30 mg PO QHS 07/09/18 [History Last Taken Unknown] omeprazole 40 mg capsule,delayed release 40 mg PO DAILY 07/09/18 [History Last Taken Unknown] albuterol sulfate 90 mcg/actuation aerosol inhaler 1 puff inhalation Q4H PRN PRN Wheezing 01/31/21 [History Last Taken Unknown] clindamycin HCl 150 mg capsule 450 mg PO TID 10 days #90 caps 01/31/21 [Rx Last Taken Unknown] clonazepam 1 mg tablet 1 mg PO BID 01/31/21 [History Last Taken Unknown] dextroamphetamine-amphetamine 15 mg tablet 15 mg PO DAILY 01/31/21 [History Last Taken Unknown] fluticasone propionate 115 mcg-salmeterol 21 mcg/actuation HFA inhaler (Advair HFA) 2 puff inhalation BID 01/31/21 [History Last Taken Unknown] gabapentin 800 mg tablet 800 mg PO Q6H 01/31/21 [History Last Taken Unknown] Allergy/AdvReac Type Severity Reaction Status Date / Time No Known Allergies Allergy Verified 07/23/22 14:08 Family History Mother Colon cancer Surgical History History of melanoma excision Social History Smoking Status: Current every day smoker tobacco type: cigarettes ROS ROS ED ROS Narrative Constitutional: No fever, no chills. HEENT: No sore throat. No neck pain. No loss of vision. No rhinorrhea. Cardiovascular: No chest pain. No palpitations. No pedal edema. Respiratory: No cough, no shortness of breath. Abdominal: No abdominal pain. No nausea. No vomiting. Genitourinary: No dysuria. No hematuria. Musculoskeletal: No myalgias. No arthralgias. Neurologic: No headaches. No dizziness. No lightheadedness. Skin: No rash. No change in color. Psychiatric: No depression. No anxiety. Denies suicidal ideation. States that he does hear voices, but they are not telling him to harm himself or currently intrusive. EXAM Physical Exam Narrative Exam Narrative: Afebrile. Vital signs noted. Mildly unkempt. HEENT: Normocephalic. Atraumatic. PERRL, EOMI. Neck soft and supple. No point tenderness or step off. Cardiovascular: Regular rate and rhythm. No murmurs, rubs, or gallops appreciated. Respiratory: No tachypnea. Lungs clear to auscultation bilaterally. Gastrointestinal: Abdomen soft, nontender, with normoactive bowel sounds. No rebound or guarding. Neurological: Awake. Alert. Nonfocal, nonlateralizing. Skin: No rash. Normal color. No pallor. Musculoskeletal: No pedal edema. Full range of motion extremities. Const Vital Signs: 07/23/22 14:04 07/23/22 16:51 Temperature 98.2 F Temperature Source Temporal Pulse Rate 98 Respiratory Rate 16 16 Blood Pressure 116/79 Blood Pressure Mean 91 Pulse Ox 97 Oxygen Delivery Method Room Air Room Air MDM MDM MDM Narrative Medical decision making narrative: I did read the nursing triage note. Patient is here for medical clearance by court order to be admitted to [facility] for capacity issues. Medical clearance labs were obtained. I reviewed his laboratory work. He is negative for COVID currently. Pulse ox is 97% on room air without karthikeyan dence of hypoxia. Review of his CBC shows normal white count of 9.0, hemoglobin normal at 14.9 with platelet count normal at 241. Electrolyte panel shows chloride of 109, but otherwise unremarkable. Alcohol level slightly elevated at 33, but this was at 2:30 PM, almost 2-1/2 hours ago. Urine for drugs of abuse is positive for opiates, amphetamines, and MDMA. EKG was obtained and interpreted by myself which demonstrates normal sinus rhythm at 90 bpm without ectopy or acute ST changes. No STEMI. At this point in time, I do feel that he is medically cleared for admission to [facility] psychiatric facility. Patient is in stable condition. Of note, patient is adamant that he be transported via private vehicle. His nephew is present and willing to take him directly there. There is no court order present for him to have to go by squad. Patient had been discussed with case management, who in turn discussed the patient with [facility] who states that they are ready to accept him either by squad or by private vehicle as they stated there is no court order for him to be admitted. There has been significant delay in obtaining ambulance transportation. I do feel that he can be discharged to report immediately to [facility] for admission. Patient is in stable condition. Lab Data Attestation: I reviewed the patient's lab results. Labs: Laboratory Results - last 24 hr 07/23/22 07/23/22 07/23/22 14:30 14:30 14:30 WBC 9.0 RBC 4.28 L Hgb 14.9 Hct 42.5 MCV 99.3 H MCH 34.8 H MCHC 35.1 RDW Std Deviation 44.6 H RDW Coeff of Dacia 12.3 Plt Count 241 MPV 9.8 Immature Gran % (Auto) 0.200 Neut % (Auto) 59.8 Lymph % (Auto) 30.1 [place] % (Auto) 8.2 Eos % (Auto) 1.0 Baso % (Auto) 0.7 Absolute Neuts (auto) 5.4 Absolute Lymphs (auto) 2.70 Nucleated RBC % 0 Sodium 140 Potassium 3.7 Chloride 109 H Carbon Dioxide 22.0 Anion Gap 9 BUN 16 Creatinine 0.93 Estim Creat Clear Calc 90.39 Est GFR (MDRD) Af Amer 106 Est GFR (MDRD) Non-Af 88 BUN/Creatinine Ratio 17.2 Glucose 102 Calcium 9.4 Urine Opiates Screen Urine Methadone Screen Ur Barbiturates Screen Ur Phencyclidine Scrn Ur Amphetamines Screen MDMA (Ecstasy) Screen U Benzodiazepines Scrn Urine Cocaine Screen U Cannabinoids Screen Ur Drug Screen Comment Ethyl Alcohol 33.0 07/23/22 15:10 WBC RBC Hgb Hct MCV MCH MCHC RDW Std Deviation RDW Coeff of Dacia Plt Count MPV Immature Gran % (Auto) Neut % (Auto) Lymph % (Auto) [place] % (Auto) Eos % (Auto) Baso % (Auto) Absolute Neuts (auto) Absolute Lymphs (auto) Nucleated RBC % Sodium Potassium Chloride Carbon Dioxide Anion Gap BUN Creatinine Estim Creat Clear Calc Est GFR (MDRD) Af Amer Est GFR (MDRD) Non-Af BUN/Creatinine Ratio Glucose Calcium Urine Opiates Screen POSITIVE H Urine Methadone Screen NEGATIVE Ur Barbiturates Screen NEGATIVE Ur Phencyclidine Scrn NEGATIVE Ur Amphetamines Screen POSITIVE H MDMA (Ecstasy) Screen POSITIVE H U Benzodiazepines Scrn NEGATIVE Urine Cocaine Screen NEGATIVE U Cannabinoids Screen NEGATIVE Ur Drug Screen Comment Ethyl Alcohol Discharge Plan Triage Chief Complaint: Mental Health ED Provider: Chuck Aguirre Dx/Rx/DC Orders Clinical Impression: Chronic paranoid schizophrenia, Schizo-affective schizophrenia, Hallucinations Instructions: ED Schizoaffective Disorder, ED Schizophrenia, General Prescriptions: No Action omeprazole 40 mg capsule,delayed release(DR/EC) 40 mg PO DAILY mirtazapine [Remeron] 30 mg tablet 30 mg PO QHS cholecalciferol (vitamin D3) 50,000 unit capsule 50,000 unit PO QWEEK clonazepam 1 mg tablet 1 mg PO BID Label Comments: take 1 tablet by mouth once daily if needed gabapentin 800 mg tablet 800 mg PO Q6H Label Comments: take 1 tablet by mouth four times a day if needed dextroamphetamine-amphetamine 15 mg tablet 15 mg PO DAILY albuterol sulfate 90 mcg/actuation HFA aerosol inhaler 1 puff INHALATION Q4H PRN PRN (Reason: Wheezing) Label Comments: inhale 2 puffs four times a day if needed Advair HFA 115-21 mcg/actuation HFA aerosol inhaler 2 puff INHALATION BID Label Comments: inhale 2 puffs by mouth and INTO THE LUNGS twice a day Rinse mouth after use clindamycin HCl 150 mg capsule 450 mg PO TID 10 Days Qty: 90 0RF Primary Care Provider: Justice Messer Referrals: Justice Messer MD [Primary Care Provider] - Activity Restrictions/Additional Instructions: Report directly to [facility]/hospital. You have a bed awaiting for you. Remember, that you are court ordered to report there today. Medical clearance has been performed in the emergency department. Disposition Disposition: Home, Self Care
[2022-07-23 16:51] VITALS: RESP 16
--- NOTE | 2022-07-23 17:28 | CM.ED ---
Per RN patient returned to his room in the ED. ADRIENNE spoke to Johnnie at [facility]. Johnnie said that patient is good to go and can come to [facility]. ADRIENNE met with patient. Reports he has been in half-way for 40 years. Reports that his textile engraver told him to go to [facility] or [place] for medical clearance. He wants his nephew to take him. ADRIENNE updated the MD that per [facility] the court order does not specify how patient is coming to [facility]. ADRIENNE will speak to patient's nephew. Susan CHAN
--- NOTE | 2022-07-23 18:01 | CM.ED ---
ADRIENNE spoke to patient and his nephew. Nephew is agreeable to take patient to [place]. ADRIENNE updated MD. Plan is for patient to be discharged. Records have been faxed to [facility]. ADRIENNE updated staff and Johnnie at [facility]. Advised Johnnie that nephew is bringing patient to [facility] and Johnnie said that will work. Plan: Discharge. Per Court Order patient is to go to [place]. Susan CHAN
[2022-07-23 18:04] VITALS: PULSE 89; RESP 17; O2SAT 98
== END 2022-07-23 18:07 | disposition home or self-care (01) ==
PROVIDERS: Emergency Provider Emergency Medicine; PCP Family Medicine; Visit Provider Emergency Medicine
DX: F20.0 Paranoid schizophrenia (principal); F17.210 Nicotine dependence, cigarettes, uncomplicated
CPT/HCPCS: 80048; 80307; 82077; 85025; 87811; 93005; 99282

== ENCOUNTER 2022-08-30 22:54 | Emergency (ER) | payer MEDICARE, MEDICAID, SELFPAY ==
[2022-08-30 22:56] VITALS: BP 192/105; PULSE 115; RESP 22; TEMP 36.2; O2SAT 96; BMI 32.8
--- NOTE | 2022-08-30 23:08 | EX.ED.VIS.PS ---
HPI HPI - Psych History of Present Illness Chief Complaint: Anxiety Narrative Narrative: ?62-year-old male with history of schizophrenia, schizoaffective disorder, MRDD presenting with nausea and abdominal cramping. He states he was out scrapping. He indicates this was a certain kinds of metals that he does try to collect. He states he had a couple of beers a few hours ago. He started to feel nauseous and he thinks his nausea is because he is paranoid. He has a history of paranoid schizophrenia he states that he is basically paranoid about everything. He states he typically would take half a Klonopin for this. He is not homicidal or suicidal. He states he is not hallucinating. He is not hearing voices. [facility] Medical History Chronic low back pain with bilateral sciatica Current smoker Depression History of attempted suicide Mental retardation Neuropathy Obesity (BMI 30-39.9) OD (overdose of drug) Speech impediment Home Medications cholecalciferol (vitamin D3) 1,250 mcg (50,000 unit) capsule 50,000 unit PO QWEEK 07/09/18 [History Last Taken Unknown] mirtazapine 30 mg tablet (Remeron) 30 mg PO QHS 07/09/18 [History Last Taken Unknown] omeprazole 40 mg capsule,delayed release 40 mg PO DAILY 07/09/18 [History Last Taken Unknown] albuterol sulfate 90 mcg/actuation aerosol inhaler 1 puff inhalation Q4H PRN PRN Wheezing 01/31/21 [History Last Taken Unknown] clindamycin HCl 150 mg capsule 450 mg PO TID 10 days #90 caps 01/31/21 [Rx Last Taken Unknown] clonazepam 1 mg tablet 1 mg PO BID 01/31/21 [History Last Taken Unknown] dextroamphetamine-amphetamine 15 mg tablet 15 mg PO DAILY 01/31/21 [History Last Taken Unknown] fluticasone propionate 115 mcg-salmeterol 21 mcg/actuation HFA inhaler (Advair HFA) 2 puff inhalation BID 01/31/21 [History Last Taken Unknown] gabapentin 800 mg tablet 800 mg PO Q6H 01/31/21 [History Last Taken Unknown] ondansetron 4 mg disintegrating tablet 4 mg PO Q8H PRN PRN Nausea #10 tabs 08/31/22 [Rx Last Taken Unknown] Allergy/AdvReac Type Severity Reaction Status Date / Time No Known Allergies Allergy Verified 08/30/22 22:55 Family History Mother Colon cancer Surgical History History of melanoma excision Social History Smoking Status: Current every day smoker tobacco type: cigarettes ROS ROS ED Constitutional Constitutional ED: Denies chills or fever(s) Eyes Eyes: Denies change in vision or diplopia ENT ENT ED: Denies rhinorrhea or sore throat Cardiovascular Cardiovascular: Denies chest pain or palpitations Respiratory/Chest Respiratory/Chest: Denies cough or dyspnea Gastrointestinal Gastrointestinal: Reports abdominal pain and nausea Genitourinary Genitourinary ED: Denies dysuria or hematuria Musculoskeletal Musculoskeletal: Denies arthralgias Integumentary Denies abscess Neurologic Neurologic: Denies headache(s) or paresthesias Psychiatric Psychiatric: Reports anxiety; Denies suicidal ideation or suicidal thoughts EXAM Physical Exam Const Vital Signs: 08/30/22 22:56 08/30/22 23:21 Temperature 97.1 F L Temperature Source Temporal Pulse Rate 115 H Respiratory Rate 22 H Blood Pressure 192/105 H 148/95 H Blood Pressure Mean 134 112 Pulse Ox 96 Oxygen Delivery Method Room Air Positive well nourished and unkempt General Appearance ED: unkempt and NAD; Negative for pallor HEENT Reports moist mucous membranes normocephalic and atraumatic Eyes PERRL Resp normal respiratory effort and clear to auscultation bilaterally Auscultation: Negative for rales, rhonchi or wheezes Cardio Rate: regular rate Rhythm: regular rhythm GI GI Narrative: Benign abdominal exam. No focal tenderness Neuro oriented x3 and CN's II-XII intact bilaterally Sensorium / Orientation: alert Motor Exam: strength 5/5 throughout Psych Appearance: unkempt Attitude: calm and paranoid Activity / Motor Behavior: appropriate eye contact Mood & Affect: anxious Thought Content: No suicidality, No homicidality, No phobia(s) and No hallucination(s) Attention / Concentration: attention grossly intact Memory / Cognition: memory grossly intact Insight: fair Judgement: fair Skin General Skin Exam: Negative for jaundice or pallor MDM MDM MDM Narrative Medical decision making narrative: Presents with nausea. He states that his paranoia is making him nauseous. He states he had a couple beers earlier as well. He has some diffuse crampy abdominal pain, but his abdominal exam is benign. Patient is chronically paranoid but is not hallucinating or hearing voices. He is not suicidal or homicidal. He is calm. He makes normal eye contact. Differential includes gastritis, EtOH intoxication, pancreatitis, colitis. CBC to assess white blood cell count, hemoglobin, platelets, differential. CMP to assess liver function, renal function, electrolytes, glucose, anion gap. Lipase to assess for pancreatitis. EtOH to check his alcohol level. Patient was medicated with Zofran 4 mg IV. He is given a liter of IV fluids. On reevaluation he is feeling improved. CBC shows no leukocytosis. Hemoglobin chronic are stable. Platelets are normal. Renal function and electrolytes unremarkable. Glucose 130. No anion gap. LFTs are normal with exception of a alkaline phosphatase 119. Lipase negative at 31. EtOH less than 3. At this point patient is feeling better with Zofran and I will give him prescription for this for home. Since his lab work is normal and his symptoms are improved I do believe needs a CT scan. I do not believe this time needs a crisis evaluation. Return precautions are discussed. Impression: 1. Nausea 2. History of schizophrenia 3. Abdominal pain Lab Data Labs: Laboratory Results - last 24 hr 08/30/22 08/30/22 08/30/22 23:19 23:19 23:19 WBC 9.1 RBC 4.30 L Hgb 14.6 Hct 42.7 MCV 99.3 H MCH 34.0 H MCHC 34.2 RDW Std Deviation 42.5 RDW Coeff of Dacia 11.5 L Plt Count 211 MPV 9.6 Immature Gran % (Auto) 0.200 Neut % (Auto) 67.2 Lymph % (Auto) 24.4 [place] % (Auto) 6.5 Eos % (Auto) 1.1 Baso % (Auto) 0.6 Absolute Neuts (auto) 6.1 Absolute Lymphs (auto) 2.22 Nucleated RBC % 0 Sodium 144 Potassium 3.6 Chloride 109 H Carbon Dioxide 27.0 Anion Gap 8 BUN 16 Creatinine 0.93 Estim Creat Clear Calc 90.39 Est GFR (MDRD) Af Amer 105 Est GFR (MDRD) Non-Af 87 BUN/Creatinine Ratio 17.1 Glucose 130 H Calcium 9.1 Total Bilirubin 0.50 AST 31 ALT 39 Alkaline Phosphatase 119 H Total Protein 7.9 Albumin 4.0 Globulin 3.9 Albumin/Globulin Ratio 1.0 Lipase 31 L Ethyl Alcohol < 3.0 Discharge Plan Triage Chief Complaint: Anxiety ED Provider: Andrew Howell Dx/Rx/DC Orders Instructions: ED Anxiety Reaction, ED Vomiting (Adult), ED Abdominal Pain Unkn Cause Male... Prescriptions: New ondansetron 4 mg tablet,disintegrating 4 mg PO Q8H PRN PRN (Reason: Nausea) Qty: 10 0RF No Action omeprazole 40 mg capsule,delayed release(DR/EC) 40 mg PO DAILY mirtazapine [Remeron] 30 mg tablet 30 mg PO QHS cholecalciferol (vitamin D3) 50,000 unit capsule 50,000 unit PO QWEEK clonazepam 1 mg tablet 1 mg PO BID Label Comments: take 1 tablet by mouth once daily if needed gabapentin 800 mg tablet 800 mg PO Q6H Label Comments: take 1 tablet by mouth four times a day if needed dextroamphetamine-amphetamine 15 mg tablet 15 mg PO DAILY albuterol sulfate 90 mcg/actuation HFA aerosol inhaler 1 puff INHALATION Q4H PRN PRN (Reason: Wheezing) Label Comments: inhale 2 puffs four times a day if needed fluticasone propion-salmeterol [Advair HFA] 115-21 mcg/actuation HFA aerosol inhaler 2 puff INHALATION BID Label Comments: inhale 2 puffs by mouth and INTO THE LUNGS twice a day Rinse mouth after use clindamycin HCl 150 mg capsule 450 mg PO TID 10 Days Qty: 90 0RF Primary Care Provider: Justice Messer Referrals: Justice Messer MD [Primary Care Provider] - Disposition Disposition: Home, Self Care
[2022-08-30] MEDS: 0.9% Normal Saline 1,000 ML 999 ML IV (23:18)
[2022-08-30] MEDS: Ondansetron 4 MG/2 ML Vial IV (23:18)
[2022-08-30 23:21] VITALS: BP 148/95
[2022-08-30 23:26] LABS: Absolute Lymphocyte Count 2.22 X10^3/uL (0.83-4.51); Absolute Neutrophil Count 6.1 X10^3/uL (2.0-7.7); Basophil# 0.05 X10^3/uL; Basophil% 0.6 % (0-1); Eosinophils% 1.1 % (0-5); Hematocrit 42.7 % (40-54); Hemoglobin 14.6 g/dL (13.0-16.5); Lymphocyte # 2.22 X10^3/ul (0.83-4.51); Lymphocyte % 24.4 % (19-41); Mean Corp Hgb Conc 34.2 g/dL (32-36); Mean Corpuscular Volume 99.3 fL (80-94); Mean Platelet Vol. 9.6 fl (6.2-12.0); Monocyte# 0.59 X10^3/uL; Monocyte% 6.5 % (0-10); NRBC Flagged by Analyzer 0 % (0-5); Neutrophil % 67.2 % (47-70); Platelet Count 211 K/mm3 (150-450); RBC Distribution Width CV 11.5 % (11.6-14.6); RBC Distribution Width SD 42.5 fl (35.1-43.9); White Blood Count 9.1 K/mm3 (4.4-11.0)
[2022-08-30 23:58] LABS: Alcohol, Blood (Medical)-Serum < 3.0 mg/dL
[2022-08-31 00:01] LABS: AST(SGOT) 31 U/L (15-37); Alanine Aminotransfer ALT/SGPT 39 U/L (16-61); Alkaline Phosphatase 119 U/L (45-117); Anion Gap 8 (5-15); BUN 16 mg/dL (7-18); BUN/Creat Ratio 17.1 RATIO (10-20); Calcium,Total 9.1 mg/dL (8.5-10.1); Chloride 109 mmol/L (98-107); Creatinine, Serum 0.93 mg/dL (0.70-1.30); EST Glomerular Filtration Rate 87 mL/min (>60); Est Glom Filt Rate - Afr Amer 105 mL/min (>60); Estimated Creatinine Clearance 90.39 ml/min; Globulin 3.9 g/dL (2.2-4.2); Glucose 130 mg/dL (74-106); Lipase 31 U/L (73-393); Potassium 3.6 mmol/L (3.5-5.1); Protein, Total 7.9 g/dL (6.4-8.2); Sodium Level 144 mmol/L (136-145)
[2022-08-31 00:35] VITALS: BP 165/98; PULSE 76; RESP 18; O2SAT 96
== END 2022-08-31 00:36 | disposition home or self-care (01) ==
PROVIDERS: Emergency Provider Student in an Organized Health Care Education/Training Program; PCP Family Medicine; Visit Provider Student in an Organized Health Care Education/Training Program
DX: R11.0 Nausea (principal); R10.9 Unspecified abdominal pain; F17.210 Nicotine dependence, cigarettes, uncomplicated; Z79.899 Other long term (current) drug therapy
CPT/HCPCS: 80053; 82077; 83690; 85025; 96374; 99282; J7030; A4216; J2405

== ENCOUNTER 2022-09-11 13:25 | Emergency (ER) | payer MEDICARE, MEDICAID, SELFPAY ==
[2022-09-11 13:25] VITALS: BP 143/87; PULSE 94; RESP 16; TEMP 36.6; O2SAT 97; BMI 32.6
--- NOTE | 2022-09-11 13:41 | EX.ED.DYSGE1 ---
HPI History of Present Illness Chief Complaint: Alt LOC Detail of Chief Complaint: Concern for mental status change Informant: patient Narrative Narrative: Patient presents to the emergency department after being found in a parking lot slumped over his steering wheel. Patient states that he had gone to this parking lot to clean out his truck and get some pallets for his truck. Patient thinks that he took Vistaril that he will take for his anxiety at times and he thinks he fell asleep. Patient has no complaints. He cooperated with responding police and EMS and comes to the ER for evaluation. Patient has have history of paranoid schizophrenia. Patient has history of MR. He denies recent illness. He denies chest pain or shortness of breath. Denies headache or injury. Patient lives in his sister's garage. Patient denies feeling suicidal or homicidal. [facility] Medical History (Updated 09/11/22 @ 13:[address] Brett Alexandra, ) Chronic low back pain with bilateral sciatica Current smoker Depression History of attempted suicide Mental retardation Neuropathy Obesity (BMI 30-39.9) OD (overdose of drug) Speech impediment Home Medications cholecalciferol (vitamin D3) 1,250 mcg (50,000 unit) capsule 50,000 unit PO QWEEK 07/09/18 [History Last Taken Unknown] mirtazapine 30 mg tablet (Remeron) 30 mg PO QHS 07/09/18 [History Last Taken Unknown] omeprazole 40 mg capsule,delayed release 40 mg PO DAILY 07/09/18 [History Last Taken Unknown] albuterol sulfate 90 mcg/actuation aerosol inhaler 1 puff inhalation Q4H PRN PRN Wheezing 01/31/21 [History Last Taken Unknown] clindamycin HCl 150 mg capsule 450 mg PO TID 10 days #90 caps 01/31/21 [Rx Last Taken Unknown] clonazepam 1 mg tablet 1 mg PO BID 01/31/21 [History Last Taken Unknown] dextroamphetamine-amphetamine 15 mg tablet 15 mg PO DAILY 01/31/21 [History Last Taken Unknown] fluticasone propionate 115 mcg-salmeterol 21 mcg/actuation HFA inhaler (Advair HFA) 2 puff inhalation BID 01/31/21 [History Last Taken Unknown] gabapentin 800 mg tablet 800 mg PO Q6H 01/31/21 [History Last Taken Unknown] ondansetron 4 mg disintegrating tablet 4 mg PO Q8H PRN PRN Nausea #10 tabs 08/31/22 [Rx Last Taken Unknown] Allergy/AdvReac Type Severity Reaction Status Date / Time No Known Allergies Allergy Verified 09/11/22 13:31 Family History Mother Colon cancer Surgical History History of melanoma excision Social History Smoking Status: Current every day smoker tobacco type: cigarettes ROS ROS ED Review of Systems ROS Unobtainable: other Constitutional Constitutional ED: Reports lethargy; Denies chills, fever(s), sweats or weight loss Eyes Eyes: Denies blurry vision, change in vision or diplopia ENT ENT ED: Denies rhinorrhea or sore throat Cardiovascular Cardiovascular: Denies chest pain, orthopnea or racing heartbeat Respiratory/Chest Respiratory/Chest: Denies cough, dyspnea, dyspnea on exertion, orthopnea or sputum Gastrointestinal Gastrointestinal: Denies abdominal pain, diarrhea, nausea or vomiting Genitourinary Genitourinary ED: Denies dysuria, hematuria or urinary frequency Musculoskeletal Musculoskeletal: Denies arthralgias, back pain, myalgias or neck pain Integumentary Denies abscess, Abrasions or rash Neurologic Neurologic: Denies headache(s) or weakness Psychiatric Psychiatric: Denies anxiety, depression or suicidal thoughts Endocrine Endocrinology: Denies polydipsia, polyphagia or polyuria Hematologic/Lymphatic Hematologic/Lymphatic: Denies easy bleeding, easy bruising or lymphadenopathy Allergic/Immunologic Allergic/Immunologic ED: Denies mouth swelling, tongue swelling or urticaria EXAM Physical Exam Const Vital Signs: 09/11/22 13:25 Temperature 97.8 F Temperature Source Temporal Pulse Rate 94 Respiratory Rate 16 Blood Pressure 143/87 H Blood Pressure Mean 105 Pulse Ox 97 Oxygen Delivery Method Room Air Positive well nourished and well developed General Appearance ED: well developed and NAD HEENT Reports TM's clear and moist mucous membranes normocephalic and atraumatic; Negative for trauma or tenderness Tympanic Membrane ED: Yes TM's clear Eyes PERRL and EOMs intact bilaterally General Eye ED: Negative for pale conjunctiva or scleral icterus Neck no lymphadenopathy, supple and no JVD General: Negative for tenderness Chest Wall inspection of chest normal and palpation of chest normal Chest: Negative for tenderness Resp normal respiratory effort and clear to auscultation bilaterally Effort and Inspection: Negative for respiratory distress or pain with movement Auscultation: Negative for rhonchi, wheezes or diminished lung sounds Cardio regular rate, regular rhythm, S1 normal heart sound, S2 normal heart sound and no murmurs Peripheral Pulses: pulses 2+ throughout GI normal to inspection, nondistended, normoactive bowel sounds, soft to palpation, non-tender, non-distended and no masses Back/Spine no CVA tenderness and no thoracic nor lumbar tenderness Extremity normal to inspection General Extremety ED: Negative for edema General Extremity: Negative for edema Neuro oriented x3, CN's II-XII intact bilaterally, no sensory deficits noted and gait normal Neuro Narrative: Ambulates without difficulty. Sensorium / Orientation: awake, alert, oriented to person, oriented to place and oriented to time Motor Exam: strength 5/5 throughout and strength abnormal Psych mental status grossly normal Psych Narrative: Alert and oriented x3. Patient thought it was early September but knew that September was just a few days away patient appropriate in response to questions. Skin no rashes or lesions noted and no wounds MDM MDM MDM Narrative Medical decision making narrative: Patient brought to the emergency department for concern of mental status change. Patient is appropriate in the department and does not want any type of work-up as we discussed obtaining some basic labs and urine. Patient states that he feels fine and just fell asleep. Patient refusing any type of diagnostics or treatment. I feel patient has capacity to make this decision. Discharge Plan Triage Chief Complaint: Alt LOC ED Provider: Brett Alexandra Dx/Rx/DC Orders Clinical Impression: Acute alteration in mental status Instructions: ED ALOC Prescriptions: No Action omeprazole 40 mg capsule,delayed release(DR/EC) 40 mg PO DAILY mirtazapine [Remeron] 30 mg tablet 30 mg PO QHS cholecalciferol (vitamin D3) 50,000 unit capsule 50,000 unit PO QWEEK clonazepam 1 mg tablet 1 mg PO BID Label Comments: take 1 tablet by mouth once daily if needed gabapentin 800 mg tablet 800 mg PO Q6H Label Comments: take 1 tablet by mouth four times a day if needed dextroamphetamine-amphetamine 15 mg tablet 15 mg PO DAILY albuterol sulfate 90 mcg/actuation HFA aerosol inhaler 1 puff INHALATION Q4H PRN PRN (Reason: Wheezing) Label Comments: inhale 2 puffs four times a day if needed fluticasone propion-salmeterol [Advair HFA] 115-21 mcg/actuation HFA aerosol inhaler 2 puff INHALATION BID Label Comments: inhale 2 puffs by mouth and INTO THE LUNGS twice a day Rinse mouth after use clindamycin HCl 150 mg capsule 450 mg PO TID 10 Days Qty: 90 0RF ondansetron 4 mg tablet,disintegrating 4 mg PO Q8H PRN PRN (Reason: Nausea) Qty: 10 0RF Primary Care Provider: Justice Messer Referrals: Justice Messer MD [Primary Care Provider] - 3-5 Days Disposition Disposition: Home, Self Care
[2022-09-11 13:56] VITALS: BP 127/86; PULSE 64; RESP 15; O2SAT 97
== END 2022-09-11 13:57 | disposition home or self-care (01) ==
PROVIDERS: Emergency Provider Emergency Medicine; PCP Family Medicine; Visit Provider Emergency Medicine
DX: R41.82 Altered mental status, unspecified (principal); F17.210 Nicotine dependence, cigarettes, uncomplicated
CPT/HCPCS: 99284

== ENCOUNTER 2022-11-17 18:37 | Emergency (ER) | payer MEDICARE, MEDICAID, SELFPAY ==
[2022-11-17 18:38] VITALS: BP 135/79; PULSE 122; RESP 15; TEMP 37.2; O2SAT 97; BMI 31.4
--- NOTE | 2022-11-17 19:11 | EDS_ITS ---
HPI History of Present Illness Chief Complaint: Burn Informant: patient Narrative Narrative: Patient presents with concern about sunburn to his legs. Patient states about 3 days ago he was working outside. It was hot and alexx. Somebody gave him some water to drink. He states after that he passed out. He did not hurt himself. But he laid down in the garage but his legs were sticking out. They got badly sunburn. He states they have kind of blistered and they have opened up in areas where he has bumped them. He denies fevers chills sweats nausea or vomiting. In fact he is drinking a drink at this time. He is also concerned that he has crabs because he has itching on his hands and groin. He has had cramps before. He has no history of diabetes. He does not feel systemically ill. No trouble breathing. [facility] Medical History (Updated 11/17/22 @ 19:[address] Facundo Mosqueda MD) Chronic low back pain with bilateral sciatica Current smoker Depression History of attempted suicide Mental retardation Neuropathy Obesity (BMI 30-39.9) OD (overdose of drug) Speech impediment Home Medications gabapentin 800 mg tablet 800 mg PO TID 01/31/21 [History Last Taken Unknown] amoxicillin 875 mg-potassium clavulanate 125 mg tablet 875 mg PO Q12H #20 TABLETS 11/17/22 [Rx Last Taken Unknown] ivermectin 3 mg tablet See Rx Instructions .Route .COMPLEX 11/17/22 [History Last Taken Unknown] mirtazapine 15 mg tablet 15 mg PO QHS 11/17/22 [History Last Taken Unknown] permethrin 1 % topical liquid (Lice Killing (permethrin)) 30 ml topical .once #59 mL 11/17/22 [Rx Last Taken Unknown] Allergy/AdvReac Type Severity Reaction Status Date / Time No Known Allergies Allergy Verified 11/17/22 18:38 Family History Mother Colon cancer Surgical History History of melanoma excision Social History Smoking Status: Current every day smoker tobacco type: cigarettes ROS ROS ED Constitutional Constitutional ED: Denies chills, fever(s), subjective or sweats ENT ENT ED: Denies sore throat Cardiovascular Cardiovascular: Denies chest pain or palpitations Respiratory/Chest Respiratory/Chest: Denies cough or dyspnea Gastrointestinal Gastrointestinal: Denies abdominal pain, nausea or vomiting Genitourinary Genitourinary ED: Denies dysuria Musculoskeletal Musculoskeletal: Reports back pain and other Details: Patient states he has chronic back pain and takes gabapentin for this. ; Denies arthralgias or myalgias Integumentary Reports rash and other Details: See history of present illness. Endocrine Endocrinology: Denies polydipsia or polyuria Allergic/Immunologic Allergic/Immunologic ED: Denies urticaria EXAM Physical Exam Narrative Exam Narrative: Patient is awake alert. He is sitting comfortably in the bed drinking from a Styrofoam cup. HEENT shows no sign of trauma. No significant sunburning to the face or arms. Neck is supple Heart has a rate about 100. I hear no murmur. Lungs are clear bilaterally. No cough or trouble breathing. Abdomen is mildly obese but overall nontender. There are some excoriations in and around the groin but no visible grabs. Extremities show a fair amount of erythema with some blistering really from below the knees on down on both legs. Most of this is on the front of the legs not the back. This is consistent with a significant sunburn. Although there are some areas that are blistered and opened these are superficial blisters. There is no linear blistering. No sign of poison juan antonio. Back of the calves really are not that red. The right leg does have some streaking of redness up the medial aspect of the right thigh that is concerning for cellulitis. Both of the shins have areas where the blister does open. Const Vital Signs: 11/17/22 18:38 Temperature 99 F Temperature Source Temporal Pulse Rate 122 H Respiratory Rate 15 Blood Pressure 135/79 H Blood Pressure Mean 97 Pulse Ox 97 Oxygen Delivery Method Room Air MDM MDM MDM Narrative Medical decision making narrative: Patient's history is that he had his legs laying outside from somewhere in mid day until he woke up at 7 or 8 in the evening. This sounds like they were exposed to the sun for an extensive period of time. But he has erythema that is streaking up the leg mostly on the right that is more concerning for a cellulitis. This area is a little bit warm. The sunburn really needs to be treated with just conservative topical therapy. But I will add antibiotics due to concern for cellulitis. I will also write for some permethrin for concern for crabs. He has had them before and feels like he has them again although I cannot actively see them at this time. Since the patient is eating and drinking not nauseated not vomiting not having fevers not diabetic does not have chronic lymphedema I do not think he needs admission at this time. But I have encouraged him to fill the antibiotics and he needs to take these or he may get significantly worse and could end up quite ill and in the hospital. Cellulitis can be very serious and can even be fatal in extreme cases. Discharge Plan Triage Chief Complaint: Burn ED Provider: Facundo Mosqueda Dx/Rx/DC Orders Clinical Impression: Hx of sunburn, Cellulitis of anterior lower leg, Crabs (pubic lice) Instructions: ED Cellulitis, ED Pubic Lice Prescriptions: New amoxicillin-pot clavulanate [amoxicillin-pot clavulanate] 875-125 mg tablet 875 mg PO Q12H Qty: 20 0RF Lice Killing (permethrin) 1 % liquid 30 ml topical .once Qty: 59 0RF Rx Instructions: May repeat treatment to affected areas in 1 week No Action gabapentin 800 mg tablet 800 mg PO TID Label Comments: take 1 tablet by mouth four times a day if needed ivermectin 3 mg tablet See Rx Instructions .ROUTE .COMPLEX Label Comments: take 6 tablets by mouth for 1 dose and repeat in 2 weeks Rx Instructions: 18 mg orally repeat in 2 weeks mirtazapine 15 mg tablet 15 mg PO QHS Label Comments: take 1 tablet by mouth at bedtime Primary Care Provider: Care Physician,No Primary Referrals: Catie Duncan MD [Med Staff - Compressor House Operator] - 3-5 Days if not improving Care Physician,No Primary [Primary Care Provider] - Disposition Disposition: Home, Self Care
[2022-11-17] MEDS: Amox/Clavulanate 875 MG Tablet PO (19:18)
== END 2022-11-17 19:26 | disposition home or self-care (01) ==
PROVIDERS: Emergency Provider Emergency Medicine; Visit Provider Emergency Medicine
DX: L03.115 Cellulitis of right lower limb (principal); L55.1 Sunburn of second degree; B85.3 Phthiriasis; R55 Syncope and collapse; F79 Unspecified intellectual disabilities; M54.9 Dorsalgia, unspecified; G89.29 Other chronic pain; F17.210 Nicotine dependence, cigarettes, uncomplicated; Z79.899 Other long term (current) drug therapy
CPT/HCPCS: 99283

== ENCOUNTER 2022-11-18 01:34 | Emergency (ER) | payer MEDICARE, MEDICAID, SELFPAY ==
[2022-11-18 01:35] VITALS: TEMP 35.8; BMI 32.5
--- NOTE | 2022-11-18 05:18 | EX.ED.DYSGE1 ---
HPI History of Present Illness Chief Complaint: Edema Informant: patient Narrative Narrative: Patient is a 62-year-old male presenting to the emergency room via EMS after he was found sleeping on the side of the road. Patient was in her ER earlier this evening and evaluated for wounds to his lower extremity thought to be sunburns and was empirically put on antibiotics for concern of a component of cellulitis. Patient was discharged home. Patient apparently was attempting to walk home when he sat against a telephone pole and fell asleep. EMS noticed his leg wounds and did not really see it already been in the ER and brought the patient back to the emergency room. Patient has no acute complaints. He does not currently have a way to get home. He is a slightly hard to understand as he has a history of a speech impediment however nursing states that he is at his baseline. Patient started on Keflex and is complaining of continued seeping and pain from his legs. [facility] Medical History (Updated 11/18/22 @ 05:[address] Yulia Rodriguez DO) Chronic low back pain with bilateral sciatica Current smoker Depression History of attempted suicide Mental retardation Neuropathy Obesity (BMI 30-39.9) OD (overdose of drug) Speech impediment Home Medications gabapentin 800 mg tablet 800 mg PO TID 01/31/21 [History Last Taken Unknown] amoxicillin 875 mg-potassium clavulanate 125 mg tablet 875 mg PO Q12H #20 TABLETS 11/17/22 [Rx Last Taken Unknown] ivermectin 3 mg tablet See Rx Instructions .Route .COMPLEX 11/17/22 [History Last Taken Unknown] mirtazapine 15 mg tablet 15 mg PO QHS 11/17/22 [History Last Taken Unknown] permethrin 1 % topical liquid (Lice Killing (permethrin)) 30 ml topical .once #59 mL 11/17/22 [Rx Last Taken Unknown] Allergy/AdvReac Type Severity Reaction Status Date / Time No Known Allergies Allergy Verified 11/17/22 18:38 Family History Mother Colon cancer Surgical History History of melanoma excision Social History Smoking Status: Current every day smoker tobacco type: cigarettes ROS ROS ED Constitutional Constitutional ED: Denies chills or fever(s) Eyes Eyes: Denies change in vision Cardiovascular Cardiovascular: Denies chest pain Respiratory/Chest Respiratory/Chest: Denies cough Gastrointestinal Gastrointestinal: Denies nausea or vomiting Musculoskeletal Musculoskeletal: Reports other Details: lower leg pain Integumentary Reports rash Neurologic Neurologic: Denies weakness EXAM Physical Exam Const Vital Signs: 11/18/22 01:35 11/18/22 07:55 Temperature 96.5 F L Temperature Source Temporal Pulse Rate 86 Respiratory Rate 22 H Blood Pressure 146/86 H Blood Pressure Mean 106 Pulse Ox 98 Oxygen Delivery Method Room Air Positive well nourished and well developed General Appearance ED: well developed and NAD HEENT Reports moist mucous membranes Eyes PERRL and EOMs intact bilaterally Neck supple and no JVD Chest Wall inspection of chest normal and palpation of chest normal Resp normal respiratory effort and clear to auscultation bilaterally Cardio regular rate and regular rhythm GI non-distended Extremity Extremity Narrative: Erythema and blistering/seeping of the bilateral lower extremities. The left leg does have involvement of the dorsal aspect of the foot. I do not appreciate any lymphangitic streaking at this time. Neuro Neuro Narrative: Mumbling speech. Sensorium / Orientation: alert Psych Psych Narrative: At baseline Skin Skin Narrative: See extremity exam MDM MDM MDM Narrative Medical decision making narrative: Patient is brought back to the emergency room for his leg swelling. Patient was not trying to get back to the emergency room but EMS found him and was concerned about his legs. Patient has had no change in his symptoms. I do not think patient requires further work-up. He is hemodynamically stable. Patient be discharged once he has a ride to get back home. He is given a dose of ibuprofen for his pain in the emergency room. Discharge Plan Triage Chief Complaint: Edema ED Provider: Yulia Rodriguez Dx/Rx/DC Orders Clinical Impression: Cellulitis of anterior lower leg, Hx of sunburn Instructions: ED Cellulitis Prescriptions: No Action gabapentin 800 mg tablet 800 mg PO TID Label Comments: take 1 tablet by mouth four times a day if needed ivermectin 3 mg tablet See Rx Instructions .ROUTE .COMPLEX Label Comments: take 6 tablets by mouth for 1 dose and repeat in 2 weeks Rx Instructions: 18 mg orally repeat in 2 weeks mirtazapine 15 mg tablet 15 mg PO QHS Label Comments: take 1 tablet by mouth at bedtime amoxicillin-pot clavulanate [amoxicillin-pot clavulanate] 875-125 mg tablet 875 mg PO Q12H Qty: 20 0RF Lice Killing (permethrin) 1 % liquid 30 ml topical .once Qty: 59 0RF Rx Instructions: May repeat treatment to affected areas in 1 week Primary Care Provider: Care Physician,No Primary Referrals: Johnnie Yang MD [Med Staff - Active Staff] - 2 Days for wound check Addis Carey [Non-Staff] - As soon as possible Care Physician,No Primary [Primary Care Provider] - Disposition Disposition: Home, Self Care
--- NOTE | 2022-11-18 06:03 | ED.RN ---
pt refusing to leave I cant walk how can i go home? requesting to speak with doctor. doctor updated.
[2022-11-18 07:30] VITALS: RESP 18
[2022-11-18 07:55] VITALS: BP 146/86; PULSE 86; RESP 22; O2SAT 98
[2022-11-18] MEDS: Ibuprofen 400 MG Tablet 800 MG PO (07:56)
--- NOTE | 2022-11-18 09:30 | CM.ED ---
Social Work Received call from a concerned person, who reports has been trying to help patient out when able (no relation to the patient). Caller indicated that patient called for a ride home and the caller is concerned whether patient is okay to leave the hospital due to medical issues and patient's mental status of having mental illness. Caller wanted to know if patient could be pink slipped to the [place]. Educated this can only be done if symptoms are present and that not every person with mental health meets criteria for pink slipping. Caller expressed much worry for this patient. At time of call patient discharged from the ED, though this racebook writer found patient had not yet left the hospital premises. Caller reports the patient lives in the garage of the patient's sister and the family does not help patient much with things. Chart reviewed and noted patient has history of paranoid schizophrenia, depression, history of attempted suicide, and chart indicates a diagnoses of developmental disability. Noted patient was sent to [facility] in July of 2022. History of seeing Lida Jiménez innovations paraprofessional at [facility]. Received call from Valdo at [facility] on another matter, so took opportunity to speak with Valdo about this patient. Referral due to person over the age of 60 with reported mental health and developmental disability diagnoses, with appearing limited support including housing and PCP. Valdo agrees to follow up with patient by the end of the week to assess things at home, and try to link with more services. Presented to the ED and approached patient, who was sitting in a wheelchair outside of the ED. [place] Bosch accompanied this racebook writer. Patient appeared to be sleeping but awoke easily. Patient confirms to live in the garage of his sister's home and that uses fans and heaters to cool or warm the space. Patient aware that prescriptions were called into [facility] and admitted had not picked the medications up since leaving the ED on 11.17.22. Patient oriented, but also appearing confused as to where his phone is at, and even his truck. Patient was able to clearly say that does not have a PCP due to missing [address] Messer's office. Patient also denies any active involvement with [facility] but could not give reason as to why has not been participating in his mental health care. Let patient know this racebook writer may make some referrals to community agencies, to see if patient may qualify for some further help. Patient reported this would be nice. Explored with patient whether patient feels he can stand up and walk, which patient indicated to feel he can. Patient reports was waiting on a friend to pick patient up. Explained the friend had called in concerned and was not able to get patient. Asked if okay to update patient's sister and call sister to assist. Patient agreed. Called the patient's sister at number listed on demographics (and patient able to tell this racebook writer what the number was). Spoke with sister Zayda and updated to patient's 2 ED visits: 11.17.22 and 11.18.22. Educated that patient needs assist with getting to follow up appointments, as well as needs to take his medication to help prevent infection and assist in healing of current skin issues. Sister reported would come to get the patient and agreed to help. Let the sister know this racebook writer planned to call community agencies to see if patient can qualify for any help. Zayda reports would very much appreciate this. Plan: Patient is discharged from the ED, but social work will continue with referrals to: [facility]PS, [facility], and Board of DD. -DUSTIN Kaye, RIVET PASSER
--- NOTE | 2022-11-19 09:19 | CM.ED ---
Social Work Called [facility] Board of DD ([phone]) and message left for Nighat Saba about possible referral to Board of DD services. This story writer really unsure whether a referral will go anywhere as uncertain whether patient has ever had any IQ testing, or a way to prove intellectual disabilities. Await for a call back from Nighat to discuss. Called [facility] ([phone])and spoke with Meli in Crisis services requesting an outreach call to the patient due to history of schizophrenia and no current medication adherence for said diagnosis. Let Meli know that patient has had two ED visits in 24 hours for medical issues, but concern from a friend is whether part of the self care/medical issues are related to mental health impeding self care. Call to Valdo at [facility] APS ([phone]) and updated to calls made today and events which transpired on 11.18.22. Valdo reports plan to see patient at the home, tomorrow, 11.20.22. No other needs requested or indicated at this time, other than the Board of DD referral when DD Board calls back. -DUSTIN Kaye, MOPHEAD TRIMMER AND WRAPPER
--- NOTE | 2022-11-20 12:00 | CM.ED ---
Addendum entered and electronically signed by Antonella Argueta 11/20/22 17:53: Call to Valdo at [facility]. Message left regarding call with the Board of DD today. -DUSTIN Da Silva, TELEVISION PRESENTER Original Note: Social Work Spoke with Nighat Saba at [facility] Board of DD. Inquired about referral to the Board of DD. Provided Nighat with patient's name and birthdate. Nighat reports patient is not in the DD system, and to go through process determine eligibility for services would take some time; no immediate solution to getting patient services. Suggestion made to call [facility] Agency on Aging to see if there are any services patient may be eligible for. -KIMBERLYN Kaye, TELEVISION PRESENTER
== END 2022-11-18 09:30 | disposition home or self-care (01) ==
PROVIDERS: Emergency Provider Emergency Medicine; Visit Provider Emergency Medicine
DX: L03.116 Cellulitis of left lower limb (principal); F17.210 Nicotine dependence, cigarettes, uncomplicated
CPT/HCPCS: 99285

== ENCOUNTER 2022-11-20 15:50 | Inpatient (IN) | payer MEDICARE, MEDICAID, SELFPAY ==
[2022-11-20 15:52] VITALS: BP 156/81; PULSE 103; RESP 16; TEMP 36.4; O2SAT 99; BMI 33.0
--- NOTE | 2022-11-20 16:29 | EX.ED.DYSGE1 ---
HPI <VIVIAN Silva - Last Filed: 11/20/22 18:23> History of Present Illness Chief Complaint: Burn Narrative Narrative: Patient is a 62-year-old male with history of depression, schizophrenia, drug abuse, chronic back pain who presents to the emergency department with ongoing pain to bilateral lower legs. Patient was seen here on November 17 for sunburn to bilateral lower legs after falling asleep outside. And then on November 18 he was brought in again secondary to being found outside sleeping. Patient states that he does live in his sister's garage. He quit using methamphetamines 2 months ago. He states that his legs are hurting more with walking, there is more redness and he is concerned they are getting infected. He was placed on Keflex 500 mg on November 17, 2022 he states he has been using the medicine as prescribed. PFSH <VIVIAN Silva - Last Filed: 11/20/22 18:23> [facility] Medical History (Updated 11/20/22 @ 18:[address] Damaso Donovan MD) Chronic low back pain with bilateral sciatica Current smoker Depression History of attempted suicide Mental retardation Neuropathy Obesity (BMI 30-39.9) OD (overdose of drug) Speech impediment Home Medications ibuprofen 200 mg tablet 200 mg PO Q6H PRN Pain 11/20/22 [History Last Taken Unknown] Allergy/AdvReac Type Severity Reaction Status Date / Time No Known Allergies Allergy Verified 11/17/22 18:38 Family History Mother Colon cancer Surgical History History of melanoma excision Social History Smoking Status: Current every day smoker tobacco type: cigarettes ROS <VIVIAN Silva - Last Filed: 11/20/22 18:23> ROS ED ROS Narrative Constitutional: Negative for fever, weight loss, weakness. Positive for chills Eyes: Negative for vision loss, vision change, double vision ENT: Negative for any sore throat, ear pain, congestion Cardiovascular: Negative for any chest pain, tightness, palpitations Respiratory: Negative for any cough, sputum production, hemoptysis, dyspnea, dyspnea on exertion, orthopnea Gastrointestinal: Negative for any abdominal pain, nausea, vomiting, diarrhea, constipation, blood in stool, blood in vomit : Negative for any urinary frequency, dysuria, retention, blood in urine Muscle skeletal: Negative for any muscle joint pain, stiffness, myalgias, arthralgias, neck pain, back pain. Patient has cellulitis, pain to bilateral lower extremities Neurological: Negative for any headache, syncope, numbness or tingling, dizziness Skin: Negative for any rashes, lumps, itching, abrasions, lacerations. Positive for cellulitis Psychiatric: Negative for any depression, anxiety, stress, suicidal ideation, homicidal ideation Hematologic: Negative for any easy bruising, excessive bruising, easy bleeding Allergies: Negative for any eczema, hives, rash EXAM <VIVIAN Silva - Last Filed: 11/20/22 18:23> Physical Exam Narrative Exam Narrative: Vital signs reviewed. Patient is difficult to understand however looking at the patient's past notes, he does have some MR, as well as difficulty communicating. HEET: Head normocephalic atraumatic, TMs clear bilaterally. Posterior pharynx is clear, moist mucous membranes. Nares clear bilaterally. Neck: Supple with no lymphadenopathy or tenderness. No signs of meningismus, negative jolt sign. Cardiac: Regular rate and rhythm no murmurs gallops or rubs, equal peripheral pulses bilaterally. Respiratory: Lungs clear to auscultation bilaterally. No chest tenderness. Abdomen: Soft, nontender, nondistended. No abdominal bruit or pulsatile masses. No hepatosplenomegaly Extremities: Patient has significant cellulitis that is circumferential to bilateral legs, this extends posteriorly into the groin. They are warm to the touch. There is a large blister on the left foot. The left is worse than the right. Patient has difficulty raising his leg secondary to the edema. Active full range of motion of all extremities. Neuro: Cranial nerves II through XII intact, no focal neurological deficits. Skin: Clean dry and intact with no rash, purpura, petechiae, vesicles or pustules. Backs/flank: No CVA tenderness, no midline spinal tenderness, no deformity. Psych: Normal mood and affect. No SI, HI or acute psychosis. Const Vital Signs: 11/20/22 15:52 11/20/22 15:58 11/20/22 17:29 Temperature 97.5 F L 98 F Temperature Source Temporal Temporal Pulse Rate 103 H 101 H Respiratory Rate 16 13 Respiratory Effort Normal Respiratory Depth Normal Blood Pressure 156/81 H 111/93 H Blood Pressure Mean 106 99 Pulse Ox 99 99 Oxygen Delivery Method Room Air 11/20/22 18:00 Temperature 98 F Temperature Source Temporal Pulse Rate 111 H Respiratory Rate 14 Respiratory Effort Respiratory Depth Blood Pressure 136/82 H Blood Pressure Mean 100 Pulse Ox 98 Oxygen Delivery Method Room Air <Dr. Damaso Donovan MD - Last Filed: 11/20/22 16:42> Physical Exam Const Vital Signs: 11/20/22 15:52 11/20/22 15:58 11/20/22 17:29 Temperature 97.5 F L 98 F Temperature Source Temporal Temporal Pulse Rate 103 H 101 H Respiratory Rate 16 13 Respiratory Effort Normal Respiratory Depth Normal Blood Pressure 156/81 H 111/93 H Blood Pressure Mean 106 99 Pulse Ox 99 99 Oxygen Delivery Method Room Air 11/20/22 18:00 Temperature 98 F Temperature Source Temporal Pulse Rate 111 H Respiratory Rate 14 Respiratory Effort Respiratory Depth Blood Pressure 136/82 H Blood Pressure Mean 100 Pulse Ox 98 Oxygen Delivery Method Room Air MDM <VIVIAN Silva - Last Filed: 11/20/22 18:23> [facility] Lab Data Labs: Laboratory Results - last 24 hr 11/20/22 11/20/22 11/20/22 16:03 16:03 16:44 WBC 18.4 H RBC 4.52 L Hgb 15.3 Hct 44.8 MCV 99.1 H MCH 33.8 H MCHC 34.2 RDW Std Deviation 50.3 H RDW Coeff of Dacia 13.7 Plt Count 278 MPV 11.2 Immature Gran % (Auto) 1.400 H Neut % (Auto) 85.3 H Lymph % (Auto) 6.3 L [place] % (Auto) 5.7 Eos % (Auto) 0.5 Baso % (Auto) 0.8 Absolute Neuts (auto) 15.7 H Absolute Lymphs (auto) 1.16 Nucleated RBC % 0 Sodium 137 Potassium 3.3 L Chloride 104 Carbon Dioxide 24.0 Anion Gap 9 BUN 24 H Creatinine 0.95 Estim Creat Clear Calc 88.49 Est GFR (MDRD) Af Amer 103 Est GFR (MDRD) Non-Af 86 BUN/Creatinine Ratio 25.3 H Glucose 137 H Lactic Acid 2.6 H* Calcium 9.2 Treatment and Re-Evaluation :: Patient appears to be in no respiratory distress, vital signs are stable. Patient is slightly lethargic, difficult to understand however looking at the past notes, this is chronic. Patient presents the emergency department for ongoing pain and redness to his lower extremities. Patient did receive a sepsis work-up concerning for bilateral lower leg cellulitis. Differential diagnosis include cellulitis, DVT, necrotizing fasciitis. Patient did receive laboratory eval as well as 2 sets of blood cultures. Patient CBC showed a leukocytosis white blood count of 18.4. Patient's chemistries were unremarkable, patient's lactic acid elevated 2.6. He received 1 L fluid, Unasyn 3 g. As well as Zofran and morphine for pain and discomfort. I spoke with hospitalist, he did want orthopedic consulted, we did consult orthopedist who believes this is cellulitis and is not interstitial. Patient is stable for admission for bilateral lower leg cellulitis. It is likely that the sunburn turned into a secondary burn which then turned to cellulitis. Patient stable for admission <Dr. Damaso Donovan MD - Last Filed: 11/20/22 16:42> [facility] MDM Narrative Medical decision making narrative: I have personally performed a face to face assessment of the patient and have reviewed the JUAN ALBERTO Note. I performed a substantive portion of the visit including all aspects of the following. My dhaliwal findings include: History is 62-year-old male past medical history of mental retardation and paranoid schizophrenia presents with his third visit in the last several days. Patient initially had a sunburn that became infected. Patient was started on oral antibiotics. He presents today with worsening cellulitis and unable to care for himself. He reportedly lives in a family member's garage. Exam is [60-year-old male no acute distress. Vital signs are stable. He is afebrile. Initial pressure was 156/81. He does not look septic. H EENT exam unremarkable. Moist mucous membranes. Neck nontender. Lungs clear to auscultation. Heart regular rhythm rate about 100. No murmur. Abdomen soft nontender. Moves all 4 extremities. He has significant sunburn and cellulitis along with clear blisters on both legs from the sunburn. He has cellulitis in both lower legs above the knees also. There is no inguinal lymphadenopathy. No pus. No necrotic skin. Neurologically he is awake alert. He answers questions and follows commands.] Medical Decision Making [62-year-old male failed outpatient therapy for cellulitis secondary to initial sunburn on his lower extremities. He has an elevated white count 18.4. Blood cultures lactic acid will be obtained he will also be started on IV Unasyn. When labs return we will speak to the hospitalist about admission.] Other additions or changes: [None] Lab Data Labs: Laboratory Results - last 24 hr 11/20/22 11/20/22 11/20/22 16:03 16:03 16:44 WBC 18.4 H RBC 4.52 L Hgb 15.3 Hct 44.8 MCV 99.1 H MCH 33.8 H MCHC 34.2 RDW Std Deviation 50.3 H RDW Coeff of Dacia 13.7 Plt Count 278 MPV 11.2 Immature Gran % (Auto) 1.400 H Neut % (Auto) 85.3 H Lymph % (Auto) 6.3 L [place] % (Auto) 5.7 Eos % (Auto) 0.5 Baso % (Auto) 0.8 Absolute Neuts (auto) 15.7 H Absolute Lymphs (auto) 1.16 Nucleated RBC % 0 Sodium 137 Potassium 3.3 L Chloride 104 Carbon Dioxide 24.0 Anion Gap 9 BUN 24 H Creatinine 0.95 Estim Creat Clear Calc 88.49 Est GFR (MDRD) Af Amer 103 Est GFR (MDRD) Non-Af 86 BUN/Creatinine Ratio 25.3 H Glucose 137 H Lactic Acid 2.6 H* Calcium 9.2 Discharge Plan Dx/Rx/DC Orders Clinical Impression: Cellulitis, Leukocytosis, Failure of outpatient treatment, Psychiatric illness Disposition Disposition: Acute Care [facility]
[2022-11-20 16:36] LABS: Absolute Lymphocyte Count 1.16 X10^3/uL (0.83-4.51); Absolute Neutrophil Count 15.7 X10^3/uL (2.0-7.7); Basophil# 0.15 X10^3/uL; Basophil% 0.8 % (0-1); Eosinophil# 0.09 X10^3/uL; Eosinophils% 0.5 % (0-5); Hematocrit 44.8 % (40-54); Hemoglobin 15.3 g/dL (13.0-16.5); Lymphocyte # 1.16 X10^3/ul (0.83-4.51); Lymphocyte % 6.3 % (19-41); Mean Corp Hgb Conc 34.2 g/dL (32-36); Mean Corpuscular Hgb 33.8 pg (27.0-32.0); Mean Corpuscular Volume 99.1 fL (80-94); Mean Platelet Vol. 11.2 fl (6.2-12.0); Monocyte# 1.05 X10^3/uL; Monocyte% 5.7 % (0-10); NRBC Flagged by Analyzer 0 % (0-5); Neutrophil # 15.68 X10^3/uL (2.7-7.7); Neutrophil % 85.3 % (47-70); Platelet Count 278 K/mm3 (150-450); RBC Distribution Width CV 13.7 % (11.6-14.6); RBC Distribution Width SD 50.3 fl (35.1-43.9); Red Blood Count 4.52 M/mm3 (4.6-6.2); White Blood Count 18.4 K/mm3 (4.4-11.0)
[2022-11-20 16:49] LABS: Anion Gap 9 (5-15); BUN 24 mg/dL (7-18); BUN/Creat Ratio 25.3 RATIO (10-20); Calcium,Total 9.2 mg/dL (8.5-10.1); Chloride 104 mmol/L (98-107); Creatinine, Serum 0.95 mg/dL (0.70-1.30); EST Glomerular Filtration Rate 86 mL/min (>60); Est Glom Filt Rate - Afr Amer 103 mL/min (>60); Estimated Creatinine Clearance 88.49 ml/min; Glucose 137 mg/dL (74-106); Potassium 3.3 mmol/L (3.5-5.1); Sodium Level 137 mmol/L (136-145)
[2022-11-20] MEDS: morphine 8 MG/ML Syringe 6 MG IV (16:57)
[2022-11-20] MEDS: 0.9% Normal Saline 1,000 ML 1000 ML IV (16:57)
[2022-11-20] MEDS: Ondansetron 4 MG/2 ML Vial IV (16:57)
--- NOTE | 2022-11-20 17:16 | CM.ED ---
Social Work SW spoke with Lena from Crisis prior to patient's arrival. Patient's sister had called crisis multiple times regarding concerns about patient. Patient is reportedly unmedicated and also not caring for himself properly. cleaning and maintenance worker went to residence to assess patient and found patient was in medical need. Patient transported to hospital. cleaning and maintenance worker reports poor living conditions and concerns regarding patient's ability to care for himself, safety risks, and medication noncompliance. APS is currently involved as well. Pt had been multiple times to ED for same leg santana. Pt reported to crisis he is unsure whether he has been taking the medication he was given for his legs. Crisis unable to do a full assessment prior to patient coming to the hospital but did feel patient needed medical stabilization and then reviewed for psychiatric placement. Plan: Patient to be stabilized medically and then crisis to be contacted for assessment prior to discharge from hospital. Patient may need inpatient psychiatric hospitalization for med review and stabilization of mental health symptoms. Karyn Salinas EARTH SCIENCE TECHNICIAN, INDEPENDENT LIVING ADVISOR
[2022-11-20 17:29] VITALS: BP 111/93; PULSE 101; RESP 13; TEMP 36.6; O2SAT 99
[2022-11-20 17:36] LABS: Lactic Acid 2.6 mmol/L (0.4-1.9)
[2022-11-20 18:00] VITALS: BP 136/82; PULSE 111; RESP 14; TEMP 36.6; O2SAT 98
--- NOTE | 2022-11-20 18:11 | ED.RN ---
PT NOTED TO HAVE SINGED HAIR TO BILATERAL HANDS AND FOREARMS WHEN THIS RN INTIATED HIS IV.
--- NOTE | 2022-11-20 18:14 | CONS.ORTHO ---
HPI Consult Data Date of Consult: 11/20/22 HPI Narrative HPI Narrative: CRISTOPHER DA SILVA, is a 62 M who presents with bilateral leg redness swelling and pain. This is a difficult historian patient has great difficulties communicating. According the patient and the emergency room physician he has had 5 days now of sunburn followed by increasing redness pain and warmth to the lower extremities. Initially that was tried to be treated as an outpatient with oral Keflex this failed so the patient came back in. Patient is being admitted under the hospitalist service for IV antibiotics with orthopedic consultation by myself. [facility] Medical History Chronic low back pain with bilateral sciatica Current smoker Depression History of attempted suicide Mental retardation Neuropathy Obesity (BMI 30-39.9) OD (overdose of drug) Speech impediment Home Medications ibuprofen 200 mg tablet 200 mg PO Q6H PRN Pain 11/20/22 [History Last Taken Unknown] Allergy/AdvReac Type Severity Reaction Status Date / Time No Known Allergies Allergy Verified 11/17/22 18:38 Family History Mother Colon cancer Surgical History History of melanoma excision Social History Smoking Status: Current every day smoker tobacco type: cigarettes Vital Signs Vital Signs Vital Signs: 11/20/22 15:52 11/20/22 15:58 11/20/22 17:29 Temperature 97.5 F L 98 F Temperature Source Temporal Temporal Pulse Rate 103 H 101 H Respiratory Rate 16 13 Respiratory Effort Normal Respiratory Depth Normal Blood Pressure 156/81 H 111/93 H Blood Pressure Mean 106 99 Pulse Ox 99 99 Oxygen Delivery Method Room Air 11/20/22 18:00 Temperature 98 F Temperature Source Temporal Pulse Rate 111 H Respiratory Rate 14 Respiratory Effort Respiratory Depth Blood Pressure 136/82 H Blood Pressure Mean 100 Pulse Ox 98 Oxygen Delivery Method Room Air Weight Weight: 243 lb 13.3 oz Body Mass Index (BMI) 33.0 Physical Exam Const alert General Appearance: cooperative HEENT normocephalic Extremity Extremity Narrative: Bilateral lower extremities from about the proximal one third of the tibia is down throughout the tibia entire lower extremities throughout the feet have redness severe swelling and blistering. She skin is weeping serous fluid. Knees have normal appearance able to range the knees. Feet are warm well perfused although they are quite swollen. Calf compartments are soft to palpate although extremely tender there is redness throughout that blanches and is painful to light touch. No pain with passive stretch of the feet or toes or ankles or knees. Lab / Micro Data Attestation: I reviewed the patient's lab results. Result Diagrams: 11/20/22 16:03 11/20/22 16:03 Labs: Laboratory Results - last 24 hr 11/20/22 16:03: WBC 18.4 H, RBC 4.52 L, Hgb 15.3, Hct 44.8, MCV 99.1 H, MCH 33.8 H, MCHC 34.2, RDW Std Deviation 50.3 H, RDW Coeff of Dacia 13.7, Plt Count 278, MPV 11.2, Immature Gran % (Auto) 1.400 H, Neut % (Auto) 85.3 H, Lymph % (Auto) 6.3 L, [place] % (Auto) 5.7, Eos % (Auto) 0.5, Baso % (Auto) 0.8, Absolute Neuts (auto) 15.7 H, Absolute Lymphs (auto) 1.16, Nucleated RBC % 0 11/20/22 16:03: Sodium 137, Potassium 3.3 L, Chloride 104, Carbon Dioxide 24.0, Anion Gap 9, BUN 24 H, Creatinine 0.95, Estim Creat Clear Calc 88.49, Est GFR (MDRD) Af Amer 103, Est GFR (MDRD) Non-Af 86, BUN/Creatinine Ratio 25.3 H, Glucose 137 H, Calcium 9.2 11/20/22 16:44: Lactic Acid 2.6 H* Assessment & Plan Assessment/Plan (1) Cellulitis of anterior lower leg: PLAN: 62-year-old man with a worsening bilateral lower extremity leg cellulitis. No signs of drainable abscess fluid collection or compartment syndrome. I do not see a role for acute surgical intervention but the patient definitely needs to be admitted to the hospital for IV antibiotics. I recommend the hospitalist to admit the patient and start broad-spectrum IV antibiotics and consult with infectious disease for appropriate antibiotic management as well as following daily lab work to ensure clinical response. I will follow the patient while in hospital, but please call with any acute concerns or change in status.
--- NOTE | 2022-11-20 18:15 | CASEMGMT ---
Social Work Collaboration with ED SW this date. Patient known to this quality analyst/technical writer also, from prior ED visits this week. From earlier ED visit on 11.18.2022 this quality analyst/technical writer initiated referrals for patient with [facility] due to age/reported overall functional status/reported poor living conditions/limited support system Crisis at [facility] for a crisis well check as patient has been non-adherent to mental health treatment and has reported diagnosis of schizophrenia with court ordered state hospitalization back in July of 2022 [facility] Board of DD to determine whether there has ever been any Board of DD involvement. Per conversation with Nighat Saba at [facility] Board of DD on 11.20.22, patient is not in the Board of DD system and has never been determined eligible for services for a developmental or intellectual disability. To be determined eligible does take time and would not be an immediate source of support, should patient want to pursue this. Nighat had suggested SW look at the [facility]ging for potential services. Per handoff from ED SW, Crisis did go out to the home for a well check and subsequently patient return to the ED for assessment of medical needs. Crisis to complete crisis assessment once patient is medically stable. Message left this evening for Valdo at [facility] ([phone]) regarding patient being at [facility] with plan to admit. Per prior conversation with Valdo this week, [facility] was to make a home visit on 11.20.2022. Plan: Plan for Crisis consult when medically stable to determine need for inpatient stabilization. May need to have a back up plan should need for inpatient treatment be ruled out after crisis consult. Social work to follow and assist as needed and indicated. -DUSTIN Kaye, MUTUEL CLERK
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
[2022-11-20 18:51] VITALS: BP 115/71; PULSE 105; RESP 14; TEMP 36.2; O2SAT 97
[2022-11-20 19:38] VITALS: BP 115/85; PULSE 103; RESP 18; TEMP 36.6; O2SAT 98; BMI 32.2
[2022-11-20 20:53] LABS: Reflex Lactate? Y
--- NOTE | 2022-11-20 20:59 | ART_ITS ---
Reason For Study: Decreased pulsation of PDA Procedure A bilateral lower extremity continuous wave Doppler with analog waveform analysis and ankle brachial indexes. Left Segmental Pressures Left brachial= 148mmHg. Left posterior tibial artery = 239mmHg. Left dorsalis pedis artery = 198mmHg. Left digit = 93 mmHg. The left dorsalis pedis waveforms are triphasic. The left posterior tibial artery waveforms are triphasic. Right Segmental Pressures Right brachial= 144mmHg. Right posterior tibial artery = >254mmHg. Right dorsalis pedis artery = 147mmHg. Right digit = 83 mmHg. The right dorsalis pedis waveforms are triphasic. The right posterior tibial artery waveforms are triphasic. Indices The right ankle brachial index by the dorsalis pedis is 0.99. The right ankle brachial index by the posterior tibial artery is NC. The right digital-brachial index is 0.56. The left ankle brachial index by the dorsalis pedis is 1.61. The left digital-brachial index is 0.63. VL/Ankle Brachial Index Interpretation Summary Unable to calculate right posterior tibialis ankle-brachial indices secondary t o noncompressibility. Normal right dorsalis pedis ankle-brachial index of 0.99. Normal triphasic Dopp ler waveforms are noted at the right posterior tibial and dorsalis pedis levels. Abnormal right digital brachial index of 0.56 suggestive of distal small vessel disease Normal left posterior tibial and dorsalis pedis ankle-brachial indices of 1.61 and 1.34 respectively with normal triphasic Doppler waveforms. Abnormal left digital brachial index of 0.63 suggestive of distal small vessel disease. Ordering Physician: Elmer Keita Performed By: Herminio Urias RVT
--- NOTE | 2022-11-20 20:59 | VDLE_ITS ---
Reason For Study: Bilateral leg swelling RIGHT LEFT GSV is normal. GSV is normal. CFV is compressible, spontaneous, phasic, CFV is compressible, spontaneous, phasic, competent and demonstrates normal competent, and demonstrates normal augmentation. augmentation. FV is compressible, spontaneous, phasic, FV is compressible, spontaneous, phasic, competent and demonstrates normal competent and demonstrates normal augmentation. augmentation. POP V is compressible, spontaneous, phasic, POP V is compressible, spontaneous, phasic, competent and demonstrates normal competent and demonstrates normal augmentation. augmentation. T/P Trunk is compressible. T/P Trunk is compressible. PTV is compressible. PTV is compressible. RT PerV is compressible. LT PerV is compressible. Procedure This is a venous duplex using B-mode, color flow and spectral Doppler. Exam performed portable in patient room. Technically difficult to visualize calf veins due to edema and open wounds. A preliminary report was called and/or faxed to physics faculty member. VL/Venous Duplex US - Tony Extrem Interpretation Summary No evidence for acute deep venous thrombosis bilateral lower extremities with p atent and compressible bilateral great saphenous veins. This examination was felt to be t echnically difficult secondary to the amount of edema and open wounds. Ordering Physician: Elmer Keita Performed By: Lena Gipson RVT
[2022-11-20 21:12] LABS: Lactic Acid 1.4 mmol/L (0.4-1.9)
[2022-11-20 21:26] LABS: AST(SGOT) 21 U/L (15-37); Alanine Aminotransfer ALT/SGPT 22 U/L (16-61); Albumin, Serum 2.3 g/dL (3.2-5.0); Alkaline Phosphatase 175 U/L (45-117); Bilirubin, Direct 0.23 mg/dL (0.00-0.30); CPK Total, Creatine Kinase 67 U/L (39-308); Globulin 5.7 g/dL (2.2-4.2); Magnesium 2.1 mg/dL (1.6-2.6); Phosphorus 2.4 mg/dL (2.5-4.9)
[2022-11-20] MEDS: Morphine 4 MG/ML Syringe IV (21:45)
[2022-11-20] MEDS: Potassium Chloride Oral Tablet 20 MEQ 40 MEQ PO ×2 (22:20→23:23)
[2022-11-20] MEDS: Enoxaparin 40 MG/0.4 ML Syringe SC (22:20)
[2022-11-20] MEDS: 0.9% Normal Saline 1,000 ML 999 ML IV ×2 (22:20→23:23)
[2022-11-20 22:32] LABS: International Normalized Ratio 1.3; Prothrombin Time (Protime)PT. 15.8 SECONDS (11.7-14.9)
[2022-11-20 22:33] LABS: Partial Thromboplast Time 39.6 Seconds (24.1-36.2)
--- NOTE | 2022-11-20 22:48 | PCM.RX.CS ---
Consult Pharmacy has been consulted to manage selected antiobiotic: Vancomycin Type of Consult: New start Suspected Infection: Sepsis, Skin/Soft tissue Prior Doses of Antibiotics Received/Current Regimen: Medications Vancomycin HCl 1,750 mg/ (Sodium Chloride) 535 mls @ 250 mls/hr IV Q12H TYESHA Vancomycin HCl 2,000 mg/ (Sodium Chloride) 540 mls @ 250 mls/hr IV X1 ONE Stop: 11/20/22 23:39 Last Admin: 11/20/22 22:21 Dose: 250 mls/hr Labs: Sodium 137 mmol/L (136-145) 11/20/22 16:03 Potassium 3.3 mmol/L (3.5-5.1) L 11/20/22 16:03 Chloride 104 mmol/L (98-107) 11/20/22 16:03 Carbon Dioxide 24.0 mmol/L (21.0-32.0) 11/20/22 16:03 Anion Gap 9 (5-15) 11/20/22 16:03 BUN 24 mg/dL (7-18) H 11/20/22 16:03 Creatinine 0.95 mg/dL (0.70-1.30) 11/20/22 16:03 Est GFR (MDRD) Af Amer 103 mL/min (>60) 11/20/22 16:03 Est GFR (MDRD) Non-Af 86 mL/min (>60) 11/20/22 16:03 BUN/Creatinine Ratio 25.3 RATIO (10-20) H 11/20/22 16:03 Glucose 137 mg/dL (74-106) H 11/20/22 16:03 Weight used for dosin.9 kg Estimated Creatinine Clearance: 88 Goal Trough: 15-20 mcg/mL Pharmacy Plan for Drug Dosing: Pharmacy Service will continue to monitor and adjust dosing as required. Follow-Up Labs: Trough Vancomycin Labs to be done on [date and time ordered]: 11/22/22 @1000
[2022-11-20 23:58] VITALS: BP 117/52; PULSE 95; RESP 18; TEMP 36.6; O2SAT 97
[2022-11-21] MEDS: 0.9% Normal Saline 1,000 ML 999 ML IV (00:25)
[2022-11-21 03:26] VITALS: BMI 32.2
[2022-11-21 03:40] VITALS: BP 137/85; PULSE 95; RESP 20; TEMP 36.6; O2SAT 97
[2022-11-21 04:48] LABS: Anion Gap 6 (5-15); BUN 17 mg/dL (7-18); BUN/Creat Ratio 21.9 RATIO (10-20); Chloride 113 mmol/L (98-107); Creatinine, Serum 0.78 mg/dL (0.70-1.30); EST Glomerular Filtration Rate 108 mL/min (>60); Est Glom Filt Rate - Afr Amer 130 mL/min (>60); Estimated Creatinine Clearance 107.78 ml/min; Glucose 88 mg/dL (74-106); Potassium 3.6 mmol/L (3.5-5.1); Sodium Level 142 mmol/L (136-145)
[2022-11-21] MEDS: Morphine 4 MG/ML Syringe IV ×3 (07:53→21:10)
[2022-11-21] MEDS: 0.9% Saline Lock 10 ML Syringe IV ×3 (07:58→21:12)
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
[2022-11-21] MEDS: Enoxaparin 40 MG/0.4 ML Syringe SC (09:07)
[2022-11-21] MEDS: Pantoprazole Sodium 40 MG Tablet PO (09:07)
[2022-11-21 10:21] VITALS: BP 140/89; PULSE 86; RESP 14; TEMP 36.6; O2SAT 100
--- NOTE | 2022-11-21 12:33 | NURSING ---
This RN taking over care of pt at this time.
[2022-11-21] MEDS: 0.9% Normal Saline 1,000 ML 100 ML IV (14:53)
[2022-11-21 16:28] VITALS: BP 120/64; PULSE 91; RESP 17; TEMP 36.7; O2SAT 100
--- NOTE | 2022-11-21 16:35 | CHAPLAIN ---
Type of Pastoral Visit _x__ Initial Visit ___ Follow-up Visit ___ On-call Visit ___ General Patient Visit ___ Spiritual Assessment ___ Family Conference ___ Bereavement ___ Rapid Response ___ Code Blue ___ Other (describe below) Pastoral Care Referral From _x__ Patient ___ Family ___ Nurse ___ Physician ___ Child Therapist ___ Coining Press Operator ___ Other (describe below) Sacrament/Intervention _x__ Active listening ___ Anointing ___ Confucianist ___ Bereavement ___ Communion _x__ Glory exploration ___ ___ Life review _x__ Prayer ___ Reconciliation ___ Sacrament of Sick _x__ Supportive presence ___ Wedding ___ Other (describe below) Pastoral Comments 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
--- NOTE | 2022-11-21 20:27 | PCM.PN.ORT ---
Subjective Subjective no change to leg pain Objective Data Objective Data Vital Signs: Vital Signs Temp Pulse Resp BP Pulse Ox O2 Del Method 98.0 F 91 17 120/64 100 Room Air 11/21/22 16:28 11/21/22 16:28 11/21/22 16:28 11/21/22 16:28 11/21/22 16:28 11/21/22 16:28 Oxygen Delivery Method Room Air Weight: 237 lb 14.06 oz Body Mass Index (BMI) 32.2 Intake & Output: Intake and Output for Last 24 Hours 11/19/22 11/20/22 11/21/22 23:59 23:59 23:59 Intake Total 2111 3245 / 3245 Balance 2111 3245 / 3245 Lab / Micro Data Attestation: I reviewed the patient's lab results. Result Diagrams: 11/20/22 16:03 11/21/22 04:13 Labs: Laboratory Results - last 24 hr 11/20/22 16:03: Phosphorus 2.4 L, Magnesium 2.1, Total Bilirubin 0.50, Direct Bilirubin 0.23, AST 21, ALT 22, Alkaline Phosphatase 175 H, Total Creatine Kinase 67, Total Protein 8.0, Albumin 2.3 L, Globulin 5.7 H 11/20/22 20:11: Lactic Acid 1.4 11/20/22 22:10: PT 15.8 H, INR 1.3, APTT 39.6 H 11/21/22 04:13: Sodium 142, Potassium 3.6, Chloride 113 H, Carbon Dioxide 23.0, Anion Gap 6, BUN 17, Creatinine 0.78, Estim Creat Clear Calc 107.78, Est GFR (MDRD) Af Amer 130, Est GFR (MDRD) Non-Af 108, BUN/Creatinine Ratio 21.9 H, Glucose 88, Calcium 8.0 L 11/21/22 04:13: C-React Prot Ext Range 150.00 H Radiography Diagnostic Testing: Radiology Impression Ankle Brachial Index 11/20/22 20:59 Interpretation Summary Unable to calculate right posterior tibialis ankle-brachial indices secondary to noncompressibility. Normal right dorsalis pedis ankle-brachial index of 0.99. Normal triphasic Doppler waveforms are noted at the right posterior tibial and dorsalis pedis levels. Abnormal right digital brachial index of 0.56 suggestive of distal small vessel disease Normal left posterior tibial and dorsalis pedis ankle-brachial indices of 1.61 and 1.34 respectively with normal triphasic Doppler waveforms. Abnormal left digital brachial index of 0.63 suggestive of distal small vessel disease. Ordering Physician: Elmer Keita Performed By: Herminio Urias RVT Venous Doppler Study 11/20/22 20:59 Interpretation Summary No evidence for acute deep venous thrombosis bilateral lower extremities with patent and compressible bilateral great saphenous veins. This examination was felt to be technically difficult secondary to the amount of edema and open wounds. Ordering Physician: Elmer Keita Performed By: Lena Gipson RVT Physical Exam Narrative was sleeping, easily roused. Const alert Extremity Extremity Narrative: no change to exam, slightly less erythematous though Assessment & Plan Assessment/Plan (1) Cellulitis of anterior lower leg: PLAN: No change to recommendations. Needs wound care and ID on board.
[2022-11-21 20:58] VITALS: BP 150/69; PULSE 92; RESP 18; TEMP 36.8; O2SAT 98
--- NOTE | 2022-11-21 21:38 | NURSING ---
Emergency Documentation in place 11/21 19:00
[2022-11-22 03:00] VITALS: BP 110/52; PULSE 106; RESP 18; TEMP 36.8; O2SAT 97
[2022-11-22 04:33] LABS: Bacteria 0 SEEN /hpf (None Seen); Mucous, Urine 0 SEEN /hpf (<or=2+); Squamous Epithelial Cells - UA 0 SEEN /hpf (0-5)
[2022-11-22 04:35] LABS: Color, Urine Yellow (Yellow); Glucose, Dipstick Normal (Normal); Ketone-Dipstick Negative (Negative); Leukocyte Esterase-Dipstick Negative /ul (Negative); Nitrite-Dipstick Negative (Negative); Occult Blood-Urine 250 /ul (Negative); Protein-Dipstick 30 mg/dl (Negative); Specific Gravity, Urine 1.015 (1.002-1.030); Urine Bilirubin Dipstick Negative (Negative); Urine Clarity Sl. Cloudy (Clear); Urine Urobilinogen Normal (Normal); Urine pH 6.5 (5.0 - 8.0)
[2022-11-22 04:51] LABS: Red Blood Cells-Urine 50-100 SEEN /hpf (0-5); White Blood Cells 0-5 SEEN /hpf (0-5)
[2022-11-22 04:54] LABS: Amphetamine Urine VISTA NEGATIVE (<1000 ng/mL); Barbiturate Urine VISTA NEGATIVE (< 200 ng/mL); Benzodiazepine Urine VISTA NEGATIVE (< 200 ng/mL); Cocaine Urine VISTA NEGATIVE (< 300 ng/mL); Ecstacy Urine VISTA NEGATIVE (< 500 ng/mL); Methadone Urine VISTA NEGATIVE (< 300 ng/mL); PCP Urine VISTA NEGATIVE (< 25 ng/mL); THC Urine VISTA POSITIVE (< 50 ng/mL); Vista UDS pH Range 6
[2022-11-22 06:00] VITALS: BMI 32.5
[2022-11-22 06:38] LABS: Absolute Lymphocyte Count 1.95 X10^3/uL (0.83-4.51); Absolute Neutrophil Count 12.8 X10^3/uL (2.0-7.7); Basophil# 0.07 X10^3/uL; Basophil% 0.4 % (0-1); Eosinophil# 0.08 X10^3/uL; Eosinophils% 0.5 % (0-5); Hematocrit 34.8 % (40-54); Hemoglobin 11.9 g/dL (13.0-16.5); Lymphocyte # 1.95 X10^3/ul (0.83-4.51); Lymphocyte % 12.1 % (19-41); Mean Corp Hgb Conc 34.2 g/dL (32-36); Mean Corpuscular Hgb 34.3 pg (27.0-32.0); Mean Corpuscular Volume 100.3 fL (80-94); Monocyte# 0.96 X10^3/uL; NRBC Flagged by Analyzer 0 % (0-5); Neutrophil # 12.82 X10^3/uL (2.7-7.7); Neutrophil % 79.8 % (47-70); Platelet Count 312 K/mm3 (150-450); RBC Distribution Width CV 13.8 % (11.6-14.6); RBC Distribution Width SD 50.9 fl (35.1-43.9); Red Blood Count 3.47 M/mm3 (4.6-6.2); White Blood Count 16.1 K/mm3 (4.4-11.0)
[2022-11-22 07:30] LABS: ALB/GLOB Ratio 0.3 RATIO (0.9-2.4); Albumin, Serum 1.5 g/dL (3.2-5.0); BUN 11 mg/dL (7-18); BUN/Creat Ratio 14.4 RATIO (10-20); Calcium,Total 7.9 mg/dL (8.5-10.1); Creatinine, Serum 0.76 mg/dL (0.70-1.30); EST Glomerular Filtration Rate 109 mL/min (>60); Est Glom Filt Rate - Afr Amer 132 mL/min (>60); Estimated Creatinine Clearance 110.61 ml/min; Globulin 4.6 g/dL (2.2-4.2); Glucose 117 mg/dL (74-106); Protein, Total 6.1 g/dL (6.4-8.2)
[2022-11-22 07:31] LABS: AST(SGOT) 17 U/L (15-37); Alanine Aminotransfer ALT/SGPT 13 U/L (16-61); Alkaline Phosphatase 115 U/L (45-117); Anion Gap 4 (5-15); Chloride 111 mmol/L (98-107); Potassium 3.5 mmol/L (3.5-5.1); Sodium Level 139 mmol/L (136-145)
[2022-11-22 07:35] VITALS: BP 128/72; PULSE 85; RESP 16; TEMP 36.7; O2SAT 97
[2022-11-22 07:53] VITALS: O2SAT 97
--- NOTE | 2022-11-22 07:54 | PCM.PN.HOSP ---
Reason for Visit Reason for Visit: Diagnoses Cellulitis of unspecified part of limb (11/20/22) Sunburn of second degree (11/20/22) Subjective Subjective Still has a lot of discomfort but does feel better than he had Objective Data Objective Data Vital Signs: Vital Signs Temp Pulse Resp BP Pulse Ox O2 Del Method 98.0 F 85 16 128/72 H 97 Room Air 11/22/22 07:35 11/22/22 07:35 11/22/22 07:35 11/22/22 07:35 11/22/22 07:35 11/22/22 07:35 Oxygen Delivery Method Room Air Weight: 108.9 kg Body Mass Index (BMI) 32.5 Intake & Output: Intake and Output for Last 24 Hours 11/20/22 11/21/22 11/22/22 23:59 23:59 23:59 Intake Total 2111 4166.67 / 4166.67 643.33 / 643.33 Balance 2111 4166.67 / 4166.67 643.33 / 643.33 Lab / Micro Data Result Diagrams: 11/22/22 06:07 11/22/22 06:07 Labs: Laboratory Results - last 24 hr 11/21/22 04:13: C-React Prot Ext Range 150.00 H 11/22/22 04:30: Urine Opiates Screen POSITIVE H, Urine Methadone Screen NEGATIVE, Ur Barbiturates Screen NEGATIVE, Ur Phencyclidine Scrn NEGATIVE, Ur Amphetamines Screen NEGATIVE, MDMA (Ecstasy) Screen NEGATIVE, U Benzodiazepines Scrn NEGATIVE, Urine Cocaine Screen NEGATIVE, U Cannabinoids Screen POSITIVE H, Ur Drug Screen Comment 11/22/22 04:30: Urine Color Yellow, Urine Clarity Sl. Cloudy, Urine pH 6.5, Ur Specific [place] 1.015, Urine Protein 30 H, Urine Glucose (UA) Normal, Urine Ketones Negative, Urine Occult Blood 250 H, Urine Nitrite Negative, Urine Bilirubin Negative, Urine Urobilinogen Normal, Ur Leukocyte Esterase Negative, Urine RBC 50-100 SEEN, Urine WBC 0-5 SEEN, Ur Squamous Epith Cells 0 SEEN, Urine Bacteria 0 SEEN, Urine Mucus 0 SEEN 11/22/22 06:07: WBC 16.1 H, RBC 3.47 L, Hgb 11.9 L, Hct 34.8 L, MCV 100.3 H, MCH 34.3 H, MCHC 34.2, RDW Std Deviation 50.9 H, RDW Coeff of [place] 13.8, Plt Count 312, MPV 10.0, Immature Gran % (Auto) 1.200 H, Neut % (Auto) 79.8 H, Lymph % (Auto) 12.1 L, [place] % (Auto) 6.0, Eos % (Auto) 0.5, Baso % (Auto) 0.4, Absolute Neuts (auto) 12.8 H, Absolute Lymphs (auto) 1.95, Nucleated RBC % 0 11/22/22 06:07: Sodium 139, Potassium 3.5, Chloride 111 H, Carbon Dioxide 24.0, Anion Gap 4 L, BUN 11, Creatinine 0.76, Estim Creat Clear Calc 110.61, Est GFR (MDRD) Af Amer 132, Est GFR (MDRD) Non-Af 109, BUN/Creatinine Ratio 14.4, Glucose 117 H, Calcium 7.9 L, Total Bilirubin 0.30, AST 17, ALT 13 L, Alkaline Phosphatase 115, C-React Prot Ext Range 112.00 H, Total Protein 6.1 L, Albumin 1.5 L, Globulin 4.6 H, Albumin/Globulin Ratio 0.3 L Radiography Diagnostic Testing: Radiology Impression Ankle Brachial Index 11/20/22 20:59 Interpretation Summary Unable to calculate right posterior tibialis ankle-brachial indices secondary to noncompressibility. Normal right dorsalis pedis ankle-brachial index of 0.99. Normal triphasic Doppler waveforms are noted at the right posterior tibial and dorsalis pedis levels. Abnormal right digital brachial index of 0.56 suggestive of distal small vessel disease Normal left posterior tibial and dorsalis pedis ankle-brachial indices of 1.61 and 1.34 respectively with normal triphasic Doppler waveforms. Abnormal left digital brachial index of 0.63 suggestive of distal small vessel disease. Ordering Physician: Elmer Keita Performed By: Bridgett, Herminio, RVT Venous Doppler Study 11/20/22 20:59 Interpretation Summary No evidence for acute deep venous thrombosis bilateral lower extremities with patent and compressible bilateral great saphenous veins. This examination was felt to be technically difficult secondary to the amount of edema and open wounds. Ordering Physician: Elmer Keita Performed By: Lena Gipson, CLAUDE Physical Exam Narrative General: Alert, not acutely distressed HEENT: Atraumatic, normocephalic Eyes: Anicteric, normal conjunctiva, extraocular movements grossly intact, words tattooed on eyelids Neck: Supple Respiratory: Clear to auscultation bilaterally, normal respiratory effort Cardiovascular: Regular rate and rhythm GI: Soft, nontender, nondistended Extremities: Edema bilateral feet, both legs wrapped down to ankles Musculoskeletal: Moving all extremities Neuro: No overt focal neurological deficits Skin: Bilateral lower extremities wrapped with some drainage on wrapping, still some sloughing on right foot and left foot has bulla that is slightly less tense than yesterday Psych: Cooperative with me Assessment & Plan Assessment/Plan (1) Sunburn of second degree: (2) Cellulitis of anterior lower leg: PLAN: Plan #Sepsis secondary to bilateral lower extremity cellulitis -Developed after a sunburn Thursday after he fell asleep in the sun at 10 AM -He had visited the ED multiple times for the sunburn and is at began to appear cellulitic he was given Keflex but failed this and he later developed blisters with yellow exudate and severe pain and Re-presented to the ED -Presented with tachycardia, leukocytosis with white count of 18 with neutrophilia and extensive bilateral cellulitis as well as elevated lactic acid -Seen in consultation with orthopedic surgeon Dr. Juan Ledezma who did not think he had compartment syndrome or required acute surgical intervention -CK within normal limits -Patient started on IV fluid, broad-spectrum antibiotics, blood cultures ordered -Suspect that etiology is more than just sunburn given presentation, additionally has poor hygiene -Wound care consulted -11/21: Awaiting cultures, continue fluids and broad-spectrum antibiotics -11/22: Continue broad-spectrum antibiotics, monitor cultures, wound care, ID consult. CRP downtrending #History of mental illness as well as intellectual disability -Question of whether it is schizophrenia or bipolar disorder based on documentation but not presently taking any medication which would not lend support either diagnosis -Does also have intellectual disability listed as a problem and lives in his sister described -Has been recommended that crisis see him as medically cleared, expect this will be in the next 1 to 2 days -11/22: UDS positive for opiates and cannabinoid, has had previous UDS is positive for amphetamines and MDMA in the past as well then feta means negative at this time #Chronic spondylosis with sciatica pain in both lower extremities -Patient has seen Dr. Peters as an outpatient #DVT ppx: Lovenox subcu Erika Mathews MD Time spent in the patient's overall evaluation,decision-making process, review of diagnostic data, adjustment of management, discussion with other providers, nursing nursing and ancillary staff involved in patient's care documentation, 30 minutes Charges/Coding Visit Charges Inpatient E&M: 94177 Subs Hosp L2
[2022-11-22 08:04] LABS: Erythrocyte Sedimentation Rate 75 mm/hr (0-20)
[2022-11-22] MEDS: 0.9% Saline Lock 10 ML Syringe IV ×3 (08:58→21:45)
[2022-11-22] MEDS: Morphine 4 MG/ML Syringe IV ×3 (08:58→21:45)
[2022-11-22] MEDS: Pantoprazole Sodium 40 MG Tablet PO (08:59)
[2022-11-22] MEDS: Enoxaparin 40 MG/0.4 ML Syringe SC (08:59)
[2022-11-22 09:46] LABS: HIV - WCH Non-Reactive (Nonreactive)
[2022-11-22 10:35] LABS: Vancomycin, Trough Level 15.8 ug/mL (5.0-15.0)
[2022-11-22 11:20] VITALS: BP 149/73; PULSE 88; RESP 18; TEMP 36.6; O2SAT 99
--- NOTE | 2022-11-22 12:04 | PCM.RX.CS ---
Consult Pharmacy has been consulted to manage selected antiobiotic: Vancomycin Type of Consult: Follow-up Suspected Infection: Skin/Soft tissue Labs: Sodium 139 mmol/L (136-145) 11/22/22 06:07 Potassium 3.5 mmol/L (3.5-5.1) 11/22/22 06:07 Chloride 111 mmol/L (98-107) H 11/22/22 06:07 Carbon Dioxide 24.0 mmol/L (21.0-32.0) 11/22/22 06:07 Anion Gap 4 (5-15) L 11/22/22 06:07 BUN 11 mg/dL (7-18) 11/22/22 06:07 Creatinine 0.76 mg/dL (0.70-1.30) 11/22/22 06:07 Est GFR (MDRD) Af Amer 132 mL/min (>60) 11/22/22 06:07 Est GFR (MDRD) Non-Af 109 mL/min (>60) 11/22/22 06:07 BUN/Creatinine Ratio 14.4 RATIO (10-20) 11/22/22 06:07 Glucose 117 mg/dL (74-106) H 11/22/22 06:07 Vancomycin Trough 15.8 ug/mL (5.0-15.0) H 11/22/22 10:00 Goal Trough: 15-20 mcg/mL Pharmacy Plan for Drug Dosing: VANCOMYCIN LEVEL RECEIVED Current Vancomycin Dose: 1750mg IV Q12hr Number of Doses Received: 4 (3 prior to trough draw) Vancomycin Level: 15.8 Hours Since Last Dose: 11hr Renal Function: 0.76 Renal Function Trend: stable Lab/Micro: BCx 2/2 pending Vancomycin Plan/Comments: Patient had a trough drawn which resulted in a value of 15.8 (goal 15-20). At present, the patient is within therapeutic range on current dose of vancomycin. Will continue patient on vancomycin 1750mg IV Q12hr and recheck a trough in 48hrs. Pending Level: 11/24/22 @1000 Pharmacy Service will continue to monitor and adjust dosing as required.
--- NOTE | 2022-11-22 14:48 | PCM.PN.ORT ---
Subjective Subjective no change Objective Data Objective Data Vital Signs: Vital Signs Temp Pulse Resp BP Pulse Ox O2 Del Method 97.9 F 88 18 149/73 H 99 Room Air 11/22/22 11:20 11/22/22 11:20 11/22/22 11:20 11/22/22 11:20 11/22/22 11:20 11/22/22 11:20 Oxygen Delivery Method Room Air Weight: 240 lb 1.334 oz Body Mass Index (BMI) 32.5 Intake & Output: Intake and Output for Last 24 Hours 11/20/22 11/21/22 11/22/22 23:59 23:59 23:59 Intake Total 2111 4166.67 / 4166.67 1588.33 / 1588.33 Output Total 500 / 500 Balance 2111 4166.67 / 4166.67 1088.33 / 1088.33 Lab / Micro Data Result Diagrams: 11/22/22 06:07 11/22/22 06:07 Labs: Laboratory Results - last 24 hr 11/22/22 04:30: Urine Opiates Screen POSITIVE H, Urine Methadone Screen NEGATIVE, Ur Barbiturates Screen NEGATIVE, Ur Phencyclidine Scrn NEGATIVE, Ur Amphetamines Screen NEGATIVE, MDMA (Ecstasy) Screen NEGATIVE, U Benzodiazepines Scrn NEGATIVE, Urine Cocaine Screen NEGATIVE, U Cannabinoids Screen POSITIVE H, Ur Drug Screen Comment 11/22/22 04:30: Urine Color Yellow, Urine Clarity Sl. Cloudy, Urine pH 6.5, Ur Specific [place] 1.015, Urine Protein 30 H, Urine Glucose (UA) Normal, Urine Ketones Negative, Urine Occult Blood 250 H, Urine Nitrite Negative, Urine Bilirubin Negative, Urine Urobilinogen Normal, Ur Leukocyte Esterase Negative, Urine RBC 50-100 SEEN, Urine WBC 0-5 SEEN, Ur Squamous Epith Cells 0 SEEN, Urine Bacteria 0 SEEN, Urine Mucus 0 SEEN 11/22/22 06:07: WBC 16.1 H, RBC 3.47 L, Hgb 11.9 L, Hct 34.8 L, MCV 100.3 H, MCH 34.3 H, MCHC 34.2, RDW Std Deviation 50.9 H, RDW Coeff of [place] 13.8, Plt Count 312, MPV 10.0, Immature Gran % (Auto) 1.200 H, Neut % (Auto) 79.8 H, Lymph % (Auto) 12.1 L, [place] % (Auto) 6.0, Eos % (Auto) 0.5, Baso % (Auto) 0.4, Absolute Neuts (auto) 12.8 H, Absolute Lymphs (auto) 1.95, Nucleated RBC % 0, ESR 75 H 11/22/22 06:07: Sodium 139, Potassium 3.5, Chloride 111 H, Carbon Dioxide 24.0, Anion Gap 4 L, BUN 11, Creatinine 0.76, Estim Creat Clear Calc 110.61, Est GFR (MDRD) Af Amer 132, Est GFR (MDRD) Non-Af 109, BUN/Creatinine Ratio 14.4, Glucose 117 H, Calcium 7.9 L, Total Bilirubin 0.30, AST 17, ALT 13 L, Alkaline Phosphatase 115, C-React Prot Ext Range 112.00 H, Total Protein 6.1 L, Albumin 1.5 L, Globulin 4.6 H, Albumin/Globulin Ratio 0.3 L 11/22/22 06:07: HIV 1&2 Antibody Non-Reactive 11/22/22 10:00: Vancomycin Trough 15.8 H Physical Exam Const alert Extremity normal capillary refill Extremity Narrative: slightly less erythema, but overall, exam minimally changed, nurse changing abd pads Assessment & Plan Assessment/Plan (1) Cellulitis of anterior lower leg: PLAN: no change to management plan
[2022-11-22 17:20] VITALS: BP 157/82; PULSE 89; RESP 18; TEMP 36.7; O2SAT 99
[2022-11-22 23:20] VITALS: BP 153/72; PULSE 93; RESP 20; TEMP 37.1; O2SAT 98
[2022-11-23] MEDS: Acetaminophen 325 MG Tablet 650 MG PO ×2 (02:16→10:00)
[2022-11-23 05:20] VITALS: BP 160/75; PULSE 86; RESP 20; TEMP 36.9; O2SAT 98
[2022-11-23 05:23] VITALS: BMI 32.8
[2022-11-23 06:02] LABS: Absolute Lymphocyte Count 1.92 X10^3/uL (0.83-4.51); Absolute Neutrophil Count 8.9 X10^3/uL (2.0-7.7); Basophil# 0.04 X10^3/uL; Basophil% 0.3 % (0-1); Eosinophil# 0.09 X10^3/uL; Eosinophils% 0.8 % (0-5); Hematocrit 35.1 % (40-54); Hemoglobin 11.5 g/dL (13.0-16.5); Lymphocyte # 1.92 X10^3/ul (0.83-4.51); Lymphocyte % 16.1 % (19-41); Mean Corp Hgb Conc 32.8 g/dL (32-36); Mean Corpuscular Hgb 33.4 pg (27.0-32.0); Monocyte# 0.79 X10^3/uL; Monocyte% 6.6 % (0-10); NRBC Flagged by Analyzer 0 % (0-5); Neutrophil # 8.94 X10^3/uL (2.7-7.7); Neutrophil % 74.9 % (47-70); Platelet Count 314 K/mm3 (150-450); RBC Distribution Width CV 13.8 % (11.6-14.6); RBC Distribution Width SD 51.9 fl (35.1-43.9); Red Blood Count 3.44 M/mm3 (4.6-6.2); White Blood Count 11.9 K/mm3 (4.4-11.0)
[2022-11-23 06:22] LABS: Erythrocyte Sedimentation Rate 89 mm/hr (0-20)
[2022-11-23] MEDS: Morphine 4 MG/ML Syringe IV ×4 (06:24→21:23)
[2022-11-23 06:31] LABS: ALB/GLOB Ratio 0.3 RATIO (0.9-2.4); AST(SGOT) 20 U/L (15-37); Alanine Aminotransfer ALT/SGPT 14 U/L (16-61); Albumin, Serum 1.6 g/dL (3.2-5.0); Alkaline Phosphatase 95 U/L (45-117); Anion Gap 5 (5-15); BUN 9 mg/dL (7-18); BUN/Creat Ratio 13.8 RATIO (10-20); Calcium,Total 7.6 mg/dL (8.5-10.1); Chloride 110 mmol/L (98-107); Creatinine, Serum 0.65 mg/dL (0.70-1.30); EST Glomerular Filtration Rate 131 mL/min (>60); Est Glom Filt Rate - Afr Amer 159 mL/min (>60); Estimated Creatinine Clearance 129.33 ml/min; Globulin 4.7 g/dL (2.2-4.2); Glucose 83 mg/dL (74-106); Potassium 3.4 mmol/L (3.5-5.1); Protein, Total 6.3 g/dL (6.4-8.2); Sodium Level 141 mmol/L (136-145)
[2022-11-23 08:08] LABS: Complement C3 159 mg/dL (82-167)
--- NOTE | 2022-11-23 08:30 | PCM.PN.HOSP ---
Reason for Visit Reason for Visit: Diagnoses Cellulitis of unspecified part of limb (11/20/22) Sunburn of second degree (11/20/22) Subjective Subjective Still does not feel very well but does endorse feeling better than he had been Objective Data Objective Data Vital Signs: Vital Signs Temp Pulse Resp BP Pulse Ox O2 Del Method 98.4 F 86 20 H 160/75 H 98 Room Air 11/23/22 05:20 11/23/22 05:20 11/23/22 05:20 11/23/22 05:20 11/23/22 05:20 11/23/22 05:20 Oxygen Delivery Method Room Air Weight: 109.6 kg Body Mass Index (BMI) 32.8 Intake & Output: Intake and Output for Last 24 Hours 11/21/22 11/22/22 11/23/22 23:59 23:59 23:59 Intake Total 4166.67 / 4166.67 2753.33 / 2753.33 170 / 170 Output Total 1400 / 1400 Balance 4166.67 / 4166.67 1353.33 / 1353.33 170 / 170 Lab / Micro Data Result Diagrams: 11/23/22 05:15 11/23/22 05:15 Labs: Laboratory Results - last 24 hr 11/22/22 06:07: Complement C3 159, Complement C4 36 11/22/22 06:07: HIV 1&2 Antibody Non-Reactive 11/22/22 10:00: Vancomycin Trough 15.8 H 11/23/22 05:15: WBC 11.9 H, RBC 3.44 L, Hgb 11.5 L, Hct 35.1 L, MCV 102.0 H, MCH 33.4 H, MCHC 32.8, RDW Std Deviation 51.9 H, RDW Coeff of [place] 13.8, Plt Count 314, MPV 10.0, Immature Gran % (Auto) 1.300 H, Neut % (Auto) 74.9 H, Lymph % (Auto) 16.1 L, [place] % (Auto) 6.6, Eos % (Auto) 0.8, Baso % (Auto) 0.3, Absolute Neuts (auto) 8.9 H, Absolute Lymphs (auto) 1.92, Nucleated RBC % 0, ESR 89 H 11/23/22 05:15: Sodium 141, Potassium 3.4 L, Chloride 110 H, Carbon Dioxide 26.0, Anion Gap 5, BUN 9, Creatinine 0.65 L, Estim Creat Clear Calc 129.33, Est GFR (MDRD) Af Amer 159, Est GFR (MDRD) Non-Af 131, BUN/Creatinine Ratio 13.8, Glucose 83, Calcium 7.6 L, Total Bilirubin 0.30, AST 20, ALT 14 L, Alkaline Phosphatase 95, C-React Prot Ext Range 76.40 H, Total Protein 6.3 L, Albumin 1.6 L, Globulin 4.7 H, Albumin/Globulin Ratio 0.3 L Physical Exam Narrative General: Alert, not acutely distressed HEENT: Atraumatic, normocephalic Eyes: Anicteric, normal conjunctiva, extraocular movements grossly intact, words tattooed on eyelids Neck: Supple Respiratory: Clear to auscultation bilaterally, normal respiratory effort Cardiovascular: Regular rate and rhythm GI: Soft, nontender, nondistended Extremities: Trace to 1+ LE edema in feet. Musculoskeletal: Moving all extremities Neuro: No overt focal neurological deficits Skin: Bilateral lower extremities erythematous and weeping with large slightly less tense blister on top of left foot, some sloughing on right leg Psych: Cooperative with me Assessment & Plan Assessment/Plan (1) Sunburn of second degree: (2) Cellulitis of anterior lower leg: PLAN: Plan #Sepsis secondary to bilateral lower extremity cellulitis -Developed after a sunburn Thursday after he fell asleep in the sun at 10 AM -He had visited the ED multiple times for the sunburn and is at began to appear cellulitic he was given Keflex but failed this and he later developed blisters with yellow exudate and severe pain and Re-presented to the ED -Presented with tachycardia, leukocytosis with white count of 18 with neutrophilia and extensive bilateral cellulitis as well as elevated lactic acid -Seen in consultation with orthopedic surgeon Dr. Juan Ledezma who did not think he had compartment syndrome or required acute surgical intervention -CK within normal limits -Patient started on IV fluid, broad-spectrum antibiotics, blood cultures ordered -Suspect that etiology is more than just sunburn given presentation, additionally has poor hygiene -Wound care consulted -11/21: Awaiting cultures, continue fluids and broad-spectrum antibiotics -11/22: Continue broad-spectrum antibiotics, monitor cultures, wound care, ID consult. CRP downtrending -11/23: Continues to improve albeit slowly, cultures pending, remains on broad-spectrum antibiotics, ID consult in place, anticipate patient will be seen early this week #History of mental illness as well as intellectual disability -Question of whether it is schizophrenia or bipolar disorder based on documentation but not presently taking any medication which would not lend support either diagnosis -Does also have intellectual disability listed as a problem and lives in his sister described -Has been recommended that crisis see him as medically cleared, expect this will be in the next 1 to 2 days -11/22: UDS positive for opiates and cannabinoid, has had previous UDS is positive for amphetamines and MDMA in the past as well then feta means negative at this time -11/23: Patient will need crisis evaluation once medically stable ready, anticipate early this week after antibiotic plan in place #Chronic spondylosis with sciatica pain in both lower extremities -Patient has seen Dr. Peters as an outpatient #DVT ppx: Lovenox subcu Erika Mathews MD Time spent in the patient's overall evaluation,decision-making process, review of diagnostic data, adjustment of management, discussion with other providers, nursing nursing and ancillary staff involved in patient's care documentation, 30 minutes Charges/Coding Visit Charges Inpatient E&M: 51179 Subs Hosp L2
[2022-11-23 09:43] VITALS: BP 129/90; PULSE 82; RESP 18; TEMP 36.5; O2SAT 100
[2022-11-23] MEDS: Potassium Chloride Oral Tablet 20 MEQ 40 MEQ PO (09:59)
[2022-11-23] MEDS: Pantoprazole Sodium 40 MG Tablet PO (10:00)
[2022-11-23] MEDS: Enoxaparin 40 MG/0.4 ML Syringe SC (10:00)
[2022-11-23 14:54] VITALS: BP 144/85; PULSE 79; RESP 19; TEMP 36.7; O2SAT 100
[2022-11-23 21:31] VITALS: BP 158/84; PULSE 88; RESP 18; TEMP 36.9; O2SAT 96
[2022-11-24] MEDS: Morphine 4 MG/ML Syringe IV ×6 (01:50→20:21)
[2022-11-24 04:03] VITALS: BMI 32.8
[2022-11-24 04:18] VITALS: BP 142/90; PULSE 93; RESP 20; TEMP 36.3; O2SAT 100
[2022-11-24 05:55] LABS: Absolute Lymphocyte Count 1.62 X10^3/uL (0.83-4.51); Absolute Neutrophil Count 9.2 X10^3/uL (2.0-7.7); Basophil# 0.06 X10^3/uL; Basophil% 0.5 % (0-1); Eosinophil# 0.07 X10^3/uL; Eosinophils% 0.6 % (0-5); Lymphocyte # 1.62 X10^3/ul (0.83-4.51); Lymphocyte % 13.7 % (19-41); Mean Corp Hgb Conc 33.3 g/dL (32-36); Mean Corpuscular Hgb 33.9 pg (27.0-32.0); Mean Corpuscular Volume 101.7 fL (80-94); Monocyte# 0.73 X10^3/uL; Monocyte% 6.2 % (0-10); NRBC Flagged by Analyzer 0 % (0-5); Neutrophil # 9.22 X10^3/uL (2.7-7.7); Neutrophil % 77.9 % (47-70); Platelet Count 327 K/mm3 (150-450); RBC Distribution Width CV 13.6 % (11.6-14.6); RBC Distribution Width SD 51.3 fl (35.1-43.9); Red Blood Count 3.54 M/mm3 (4.6-6.2); White Blood Count 11.8 K/mm3 (4.4-11.0)
[2022-11-24 06:30] LABS: ALB/GLOB Ratio 0.3 RATIO (0.9-2.4); AST(SGOT) 24 U/L (15-37); Alanine Aminotransfer ALT/SGPT 19 U/L (16-61); Albumin, Serum 1.6 g/dL (3.2-5.0); Alkaline Phosphatase 91 U/L (45-117); Anion Gap 4 (5-15); BUN 11 mg/dL (7-18); Calcium,Total 7.6 mg/dL (8.5-10.1); Chloride 109 mmol/L (98-107); Creatinine, Serum 0.74 mg/dL (0.70-1.30); EST Glomerular Filtration Rate 115 mL/min (>60); Est Glom Filt Rate - Afr Amer 139 mL/min (>60); Globulin 4.9 g/dL (2.2-4.2); Glucose 112 mg/dL (74-106); Potassium 3.7 mmol/L (3.5-5.1); Protein, Total 6.5 g/dL (6.4-8.2); Sodium Level 139 mmol/L (136-145)
[2022-11-24 06:46] LABS: Erythrocyte Sedimentation Rate 81 mm/hr (0-20)
[2022-11-24 08:13] VITALS: O2SAT 98
[2022-11-24] MEDS: Senna/Docusate Sodium 1 Tablet 2 TABLET PO (09:18)
[2022-11-24] MEDS: 0.9% Saline Lock 10 ML Syringe IV (09:25)
[2022-11-24] MEDS: Enoxaparin 40 MG/0.4 ML Syringe SC (09:27)
[2022-11-24] MEDS: Pantoprazole Sodium 40 MG Tablet PO (09:28)
--- NOTE | 2022-11-24 10:13 | NURSING ---
Addendum entered by Sosa Parrish 11/24/22 10:15: REPORT RECEIVED BY DESTINY HERNADEZ Original Note: 11/24/22@0845- REPORT GIVEN TO DESTINY HERNADEZ DUE TO ASSIGNMENT CHANGE.
[2022-11-24 10:15] VITALS: BP 155/99; PULSE 89; RESP 18; TEMP 36.3; O2SAT 99
--- NOTE | 2022-11-24 10:36 | WOUNDNOTE ---
wound photo: left lower leg
--- NOTE | 2022-11-24 10:37 | WOUNDNOTE ---
wound photo: right lower leg
[2022-11-24 10:43] LABS: Vancomycin, Trough Level 25.9 ug/mL (5.0-15.0)
--- NOTE | 2022-11-24 12:55 | PN.HOSP_ITS ---
Reason for Visit Reason for Visit: Diagnoses Cellulitis of unspecified part of limb (11/20/22) Sunburn of second degree (11/20/22) Subjective Subjective Patient is a 62-year-old gentleman with history of learning disability admitted with sepsis secondary to bilateral lower extremity cellulitis Objective Data Objective Data Vital Signs: Vital Signs Temp Pulse Resp BP Pulse Ox O2 Del Method 97.4 F L 93 20 H 142/90 H 98 Room Air 11/24/22 04:18 11/24/22 04:18 11/24/22 04:18 11/24/22 04:18 11/24/22 08:13 11/24/22 04:18 Oxygen Delivery Method Room Air Weight: 109.6 kg Body Mass Index (BMI) 32.8 Intake & Output: Intake and Output for Last 24 Hours 11/22/22 11/23/22 11/24/22 23:59 23:59 23:59 Intake Total 2753.33 / 2753.33 2165 / 2165 805 / 805 Output Total 1400 / 1400 1650 / 1650 Balance 1353.33 / 1353.33 515 / 515 805 / 805 Lab / Micro Data Result Diagrams: 11/24/22 05:12 11/24/22 05:12 Labs: Laboratory Results - last 24 hr 11/24/22 05:12: WBC 11.8 H, RBC 3.54 L, Hgb 12.0 L, Hct 36.0 L, MCV 101.7 H, MCH 33.9 H, MCHC 33.3, RDW Std Deviation 51.3 H, RDW Coeff of [place] 13.6, Plt Count 327, MPV 10.0, Immature Gran % (Auto) 1.100 H, Neut % (Auto) 77.9 H, Lymph % (Auto) 13.7 L, [place] % (Auto) 6.2, Eos % (Auto) 0.6, Baso % (Auto) 0.5, Absolute Neuts (auto) 9.2 H, Absolute Lymphs (auto) 1.62, Nucleated RBC % 0, ESR 81 H 11/24/22 05:12: Sodium 139, Potassium 3.7, Chloride 109 H, Carbon Dioxide 26.0, Anion Gap 4 L, BUN 11, Creatinine 0.74, Estim Creat Clear Calc 113.60, Est GFR (MDRD) Af Amer 139, Est GFR (MDRD) Non-Af 115, BUN/Creatinine Ratio 15.0, Glucose 112 H, Calcium 7.6 L, Total Bilirubin 0.30, AST 24, ALT 19, Alkaline Phosphatase 91, C-React Prot Ext Range 56.00 H, Total Protein 6.5, Albumin 1.6 L , Globulin 4.9 H, Albumin/Globulin Ratio 0.3 L 11/24/22 10:03: Vancomycin Trough 25.9 H Micro: Microbiology 11/20/22 16:44 Blood Culture (Wb) - Right Wrist Blood Culture - Preliminary No growth in 48 hours. 11/20/22 17:48 Blood Culture (Wb) - Left Wrist Blood Culture - Preliminary No growth in 48 hours. Physical Exam Narrative GENERAL: cooperative HEENT: Atraumatic; normocephalic EYES; Anicteric, Normal Conjunctiva NECK; supple, normal thyroid, RESPIRATORY: Diminished to auscultation CARDIOVASCULAR: Regular S1 S2, GI: soft, normoactive bowel sounds, : No Renal angle tenderness; EXTREMITIES: No edema, no clubbing, MUSCULOSKELETAL: no muscle wasting NEURO: Awake; no lateralizing signs. SKIN: Bilateral lower extremities erythematous and weeping with large slightly less tense blister on top of left foot, some sloughing on right PSYCH; Flat affect Assessment & Plan Assessment/Plan (1) Sunburn of second degree: (2) Cellulitis of anterior lower leg: PLAN: Plan Patient is a 62-year-old gentleman with history of learning disability admitted with sepsis secondary to bilateral lower extremity cellulitis 1. Sepsis secondary to bilateral lower extremity cellulitis ? Patient managed with broad-spectrum antibiotic therapy, cultures sent consult placed to ID 2. Learning disability ? Supportive care Case management consulted to assist with disposition 3.Chronic spondylosis with sciatica -Patient is followed by Dr. Rogers with spine surgery as outpatient 4. DVT prophylaxis ? SC Lovenox Time spent in the patient's overall evaluation,decision-making process, review of diagnostic data, adjustment of management, discussion with other providers, nursing nursing and ancillary staff involved in patient's care documentation, 35 Minutes Charges/Coding Visit Charges Inpatient E&M: 96103 Subs Hosp L2
--- NOTE | 2022-11-24 13:40 | PCM.CONS.GEN ---
Assessment & Plan Assessment/Plan (1) Cellulitis of anterior lower leg: PLAN: with underlying severe sunburn to BLE. No wound cxs sent. On empiric vanc/zosyn. D/w wound care, drainage is serous. Wbc nearly normal. No fever. Will cont abx. Will follow, thank you (2) Sunburn of second degree: HPI Consult Data Date of Consult: 11/24/22 HPI Narrative Reason for Consultation: cellulitis HPI Narrative: CRISTOPHER DA SILVA, is a 62 M with h/o schizophrenia, bipolar, presented 11/20 with 5 days progressive BLE pain, redness, swelling, blistering/drainage. No fever or chills. Around 11/15, fell asleep in the sun while gardening, woke up 10 hours later. Came to ED 11/17, 11/18, and 11/20. Was taking keflex at home without improvement. Admitted here on vanc.zosyn, seen by ortho and by wound care. Pain still 10 out of 10. No n/v/d. Full ROS performed and neg except as noted above. [facility] Medical History Chronic low back pain with bilateral sciatica Current smoker Depression History of attempted suicide Mental retardation Neuropathy Obesity (BMI 30-39.9) OD (overdose of drug) Speech impediment Home Medications ibuprofen 200 mg tablet 200 mg PO Q6H PRN Pain 11/20/22 [History Last Taken Unknown] Allergy/AdvReac Type Severity Reaction Status Date / Time No Known Allergies Allergy Verified 11/17/22 18:38 Family History Mother Colon cancer Surgical History History of melanoma excision Social History Smoking Status: Current every day smoker tobacco type: cigarettes Physical Exam Const alert and no apparent distress General Appearance: cooperative HEENT normocephalic and head/scalp atraumatic Eyes PERRL and EOMs intact bilaterally Neck supple and No nodes Resp normal air movement and clear to auscultation bilaterally Cardio regular rate and regular rhythm GI soft to palpation, non-tender and non-distended Extremity General Extremity: edema Skin Skin Narrative: reviewed wound photos Neuro CN's II-XII intact bilaterally Lab / Micro Data Attestation: I reviewed the patient's lab results. Result Diagrams: 11/24/22 05:12 11/24/22 05:12 Labs: Laboratory Results - last 24 hr 11/24/22 05:12: WBC 11.8 H, RBC 3.54 L, Hgb 12.0 L, Hct 36.0 L, MCV 101.7 H, MCH 33.9 H, MCHC 33.3, RDW Std Deviation 51.3 H, RDW Coeff of Dacia 13.6, Plt Count 327, MPV 10.0, Immature Gran % (Auto) 1.100 H, Neut % (Auto) 77.9 H, Lymph % (Auto) 13.7 L, [place] % (Auto) 6.2, Eos % (Auto) 0.6, Baso % (Auto) 0.5, Absolute Neuts (auto) 9.2 H, Absolute Lymphs (auto) 1.62, Nucleated RBC % 0, ESR 81 H 11/24/22 05:12: Sodium 139, Potassium 3.7, Chloride 109 H, Carbon Dioxide 26.0, Anion Gap 4 L, BUN 11, Creatinine 0.74, Estim Creat Clear Calc 113.60, Est GFR (MDRD) Af Amer 139, Est GFR (MDRD) Non-Af 115, BUN/Creatinine Ratio 15.0, Glucose 112 H, Calcium 7.6 L, Total Bilirubin 0.30, AST 24, ALT 19, Alkaline Phosphatase 91, C-React Prot Ext Range 56.00 H, Total Protein 6.5, Albumin 1.6 L, Globulin 4.9 H, Albumin/Globulin Ratio 0.3 L 11/24/22 10:03: Vancomycin Trough 25.9 H Micro: Microbiology 11/20/22 16:44 Blood Culture (Wb) - Right Wrist Blood Culture - Preliminary No growth in 48 hours. 11/20/22 17:48 Blood Culture (Wb) - Left Wrist Blood Culture - Preliminary No growth in 48 hours.
--- NOTE | 2022-11-24 15:55 | NURSING ---
Call placed at this time to Crisis to notify that patient is deemed medically ready for placement. Johnathan with crisis voiced understanding.
[2022-11-24 16:15] VITALS: BP 148/92; PULSE 91; RESP 18; TEMP 36.6; O2SAT 100
[2022-11-24 18:47] LABS: Vancomycin, Random Level 26.4 ug/mL (0.0-15.0)
--- NOTE | 2022-11-24 19:46 | PCM.RX.CS ---
Consult Pharmacy has been consulted to manage selected antiobiotic: Vancomycin Type of Consult: Follow-up Prior Doses of Antibiotics Received/Current Regimen: 1250mg iv q12h Labs: Sodium 139 mmol/L (136-145) 11/24/22 05:12 Potassium 3.7 mmol/L (3.5-5.1) 11/24/22 05:12 Chloride 109 mmol/L (98-107) H 11/24/22 05:12 Carbon Dioxide 26.0 mmol/L (21.0-32.0) 11/24/22 05:12 Anion Gap 4 (5-15) L 11/24/22 05:12 BUN 11 mg/dL (7-18) 11/24/22 05:12 Creatinine 0.74 mg/dL (0.70-1.30) 11/24/22 05:12 Est GFR (MDRD) Af Amer 139 mL/min (>60) 11/24/22 05:12 Est GFR (MDRD) Non-Af 115 mL/min (>60) 11/24/22 05:12 BUN/Creatinine Ratio 15.0 RATIO (10-20) 11/24/22 05:12 Glucose 112 mg/dL (74-106) H 11/24/22 05:12 Vancomycin Trough 25.9 ug/mL (5.0-15.0) H 11/24/22 10:03 Random Vancomycin 26.4 ug/mL (0.0-15.0) H 11/24/22 16:55 Microbiology: Microbiology 11/20/22 16:44 Blood Culture (Wb) - Right Wrist Blood Culture - Preliminary No growth in 48 hours. 11/20/22 17:48 Blood Culture (Wb) - Left Wrist Blood Culture - Preliminary No growth in 48 hours. Weight used for dosin kg Estimated Creatinine Clearance: >120ml/min Goal Trough: 15-20 mcg/mL Pharmacy Plan for Drug Dosing: Random level this PM was elevated at 26.4 (but only ~7hrs post dose). Cr 0.74 with CrCl calculated to be >120 using adjusted body weight 90.2kg. Will get a repeat random level in AM. Will hold dosing until level <20. Pharmacy Service will continue to monitor and adjust dosing as required. Follow-Up Labs: Trough Vancomycin - random 11.25.22 @0600
[2022-11-24 20:00] VITALS: BP 162/89; PULSE 86; RESP 18; TEMP 36.6; O2SAT 99
[2022-11-24] MEDS: Acetaminophen 325 MG Tablet 650 MG PO (20:22)
[2022-11-24 21:15] VITALS: PULSE 88; RESP 20; O2SAT 99
--- NOTE | 2022-11-25 01:45 | NURSING ---
assumed care of patient at 0145
[2022-11-25 02:10] VITALS: BP 146/75; PULSE 85; RESP 16; TEMP 36.5; O2SAT 98
[2022-11-25] MEDS: Morphine 4 MG/ML Syringe IV ×6 (02:11→22:00)
[2022-11-25] MEDS: 0.9% Saline Lock 10 ML Syringe IV ×2 (02:11→08:44)
[2022-11-25 03:52] VITALS: BMI 33.0
[2022-11-25 06:29] LABS: Absolute Lymphocyte Count 1.62 X10^3/uL (0.83-4.51); Absolute Neutrophil Count 7.1 X10^3/uL (2.0-7.7); Basophil# 0.04 X10^3/uL; Basophil% 0.4 % (0-1); Eosinophil# 0.08 X10^3/uL; Eosinophils% 0.8 % (0-5); Hematocrit 37.2 % (40-54); Hemoglobin 12.1 g/dL (13.0-16.5); Lymphocyte # 1.62 X10^3/ul (0.83-4.51); Lymphocyte % 16.8 % (19-41); Mean Corp Hgb Conc 32.5 g/dL (32-36); Mean Corpuscular Hgb 33.3 pg (27.0-32.0); Mean Corpuscular Volume 102.5 fL (80-94); Mean Platelet Vol. 9.7 fl (6.2-12.0); Monocyte# 0.65 X10^3/uL; Monocyte% 6.7 % (0-10); NRBC Flagged by Analyzer 0 % (0-5); Neutrophil # 7.13 X10^3/uL (2.7-7.7); Neutrophil % 74.2 % (47-70); Platelet Count 320 K/mm3 (150-450); RBC Distribution Width CV 13.5 % (11.6-14.6); RBC Distribution Width SD 51.4 fl (35.1-43.9); Red Blood Count 3.63 M/mm3 (4.6-6.2); White Blood Count 9.6 K/mm3 (4.4-11.0)
[2022-11-25 07:04] LABS: Vancomycin, Random Level 13.9 ug/mL (0.0-15.0)
[2022-11-25 07:07] LABS: ALB/GLOB Ratio 0.3 RATIO (0.9-2.4); AST(SGOT) 27 U/L (15-37); Alanine Aminotransfer ALT/SGPT 20 U/L (16-61); Albumin, Serum 1.7 g/dL (3.2-5.0); Alkaline Phosphatase 88 U/L (45-117); Anion Gap 4 (5-15); BUN 12 mg/dL (7-18); BUN/Creat Ratio 17.7 RATIO (10-20); Calcium,Total 8.1 mg/dL (8.5-10.1); Chloride 108 mmol/L (98-107); Creatinine, Serum 0.68 mg/dL (0.70-1.30); EST Glomerular Filtration Rate 126 mL/min (>60); Est Glom Filt Rate - Afr Amer 152 mL/min (>60); Estimated Creatinine Clearance 123.63 ml/min; Globulin 5.2 g/dL (2.2-4.2); Glucose 74 mg/dL (74-106); Potassium 4.2 mmol/L (3.5-5.1); Protein, Total 6.9 g/dL (6.4-8.2); Sodium Level 138 mmol/L (136-145)
--- NOTE | 2022-11-25 07:49 | PCM.PN.HOSP ---
Reason for Visit Reason for Visit: Diagnoses Cellulitis of unspecified part of limb (11/20/22) Sunburn of second degree (11/20/22) Subjective Subjective patient wound cultures so far negative to date. Patient was seen in consultation by Dr. Brenner with ID's notes and recommendations reviewed. Had a discussion with the crisis center plan is for patient to be discharged to an inpatient psych facility once medically stable. Patient remains deconditioned requested for PT OT eval Objective Data Objective Data Vital Signs: Vital Signs Temp Pulse Resp BP Pulse Ox O2 Del Method 97.7 F L 85 16 146/75 H 98 Room Air 11/25/22 02:10 11/25/22 02:10 11/25/22 02:10 11/25/22 02:10 11/25/22 02:10 11/25/22 02:10 Oxygen Delivery Method Room Air Weight: 110.6 kg Body Mass Index (BMI) 33.0 Intake & Output: Intake and Output for Last 24 Hours 11/23/22 11/24/22 11/25/22 23:59 23:59 23:59 Intake Total 2165 / 2165 3280 / 3280 50 / 50 Output Total 1650 / 1650 850 / 850 400 / 400 Balance 515 / 515 2430 / 2430 -350 / -350 Lab / Micro Data Result Diagrams: 11/25/22 06:02 11/25/22 06:02 Labs: Laboratory Results - last 24 hr 11/24/22 10:03: Vancomycin Trough 25.9 H 11/24/22 16:55: Random Vancomycin 26.4 H 11/25/22 06:02: WBC 9.6, RBC 3.63 L, Hgb 12.1 L, Hct 37.2 L, MCV 102.5 H, MCH 33.3 H, MCHC 32.5, RDW Std Deviation 51.4 H, RDW Coeff of [place]acia 13.5, Plt Count 320, MPV 9.7, Immature Gran % (Auto) 1.100 H, Neut % (Auto) 74.2 H, Lymph % (Auto) 16.8 L, [place] % (Auto) 6.7, Eos % (Auto) 0.8, Baso % (Auto) 0.4, Absolute Neuts (auto) 7.1, Absolute Lymphs (auto) 1.62, Nucleated RBC % 0 11/25/22 06:02: Sodium 138, Potassium 4.2, Chloride 108 H, Carbon Dioxide 26.0, Anion Gap 4 L, BUN 12, Creatinine 0.68 L, Estim Creat Clear Calc 123.63, Est GFR (MDRD) Af Amer 152, Est GFR (MDRD) Non-Af 126, BUN/Creatinine Ratio 17.7, Glucose 74, Calcium 8.1 L, Total Bilirubin 0.30, AST 27, ALT 20, Alkaline Phosphatase 88, Total Protein 6.9, Albumin 1.7 L, Globulin 5.2 H, Albumin/Globulin Ratio 0.3 L 11/25/22 06:02: Random Vancomycin 13.9 Micro: Microbiology 11/20/22 16:44 Blood Culture (Wb) - Right Wrist Blood Culture - Preliminary No growth in 48 hours. 11/20/22 17:48 Blood Culture (Wb) - Left Wrist Blood Culture - Preliminary No growth in 48 hours. Physical Exam Narrative GENERAL: cooperative HEENT: Atraumatic; normocephalic EYES; Anicteric, Normal Conjunctiva NECK; supple, normal thyroid, RESPIRATORY: Diminished to auscultation CARDIOVASCULAR: Regular S1 S2, GI: soft, normoactive bowel sounds, : No Renal angle tenderness; EXTREMITIES: No edema, no clubbing, MUSCULOSKELETAL: no muscle wasting NEURO: Awake; no lateralizing signs. SKIN: Bilateral lower extremities erythematous and weeping with large slightly less tense blister on top of left foot, some sloughing on right PSYCH; Flat affect Assessment & Plan Assessment/Plan (1) Sunburn of second degree: (2) Cellulitis of anterior lower leg: PLAN: Plan Patient is a 62-year-old gentleman with history of learning disability admitted with sepsis secondary to bilateral lower extremity cellulitis 1. Sepsis secondary to bilateral lower extremity cellulitis ? Patient managed with broad-spectrum antibiotic therapy, cultures sent consult placed to ID ? 12/12/2022 patient wound cultures so far negative to date. Patient was seen in consultation by Dr. Brenner with ID's notes and recommendations reviewed 2. Learning disability ? Supportive care Case management consulted to assist with disposition 3.Chronic spondylosis with sciatica -Patient is followed by Dr. Rogers with spine surgery as outpatient 4. DVT prophylaxis ? [place] Lovenox 5. Physical deconditioning - Requested for PT OT eval and secondary social studies teacher to assist with discharge planning Time spent in the patient's overall evaluation,decision-making process, review of diagnostic data, adjustment of management, discussion with other providers, nursing nursing and ancillary staff involved in patient's care documentation, 35 Minutes Charges/Coding Visit Charges Inpatient E&M: 68848 Subs Hosp L2
--- NOTE | 2022-11-25 08:06 | PCM.RX.CS ---
Consult Pharmacy has been consulted to manage selected antiobiotic: Vancomycin Type of Consult: Follow-up Suspected Infection: Sepsis, Skin/Soft tissue Labs: Sodium 138 mmol/L (136-145) 11/25/22 06:02 Potassium 4.2 mmol/L (3.5-5.1) 11/25/22 06:02 Chloride 108 mmol/L (98-107) H 11/25/22 06:02 Carbon Dioxide 26.0 mmol/L (21.0-32.0) 11/25/22 06:02 Anion Gap 4 (5-15) L 11/25/22 06:02 BUN 12 mg/dL (7-18) 11/25/22 06:02 Creatinine 0.68 mg/dL (0.70-1.30) L 11/25/22 06:02 Est GFR (MDRD) Af Amer 152 mL/min (>60) 11/25/22 06:02 Est GFR (MDRD) Non-Af 126 mL/min (>60) 11/25/22 06:02 BUN/Creatinine Ratio 17.7 RATIO (10-20) 11/25/22 06:02 Glucose 74 mg/dL (74-106) 11/25/22 06:02 Vancomycin Trough 25.9 ug/mL (5.0-15.0) H 11/24/22 10:03 Random Vancomycin 13.9 ug/mL (0.0-15.0) 11/25/22 06:02 Microbiology: Microbiology 11/20/22 16:44 Blood Culture (Wb) - Right Wrist Blood Culture - Preliminary No growth in 48 hours. 11/20/22 17:48 Blood Culture (Wb) - Left Wrist Blood Culture - Preliminary No growth in 48 hours. Goal Trough: 15-20 mcg/mL Pharmacy Plan for Drug Dosing: VANCOMYCIN LEVEL RECEIVED Current Vancomycin Dose: on hold due to elevated trough (was 1750mg q12h) Number of Doses Received: Vancomycin Level: 20 hour random level resulted at 13.9 Hours Since Last Dose: ~20 hours Renal Function: SrCr 0.68 Renal Function Trend: SrCr steady Lab/Micro: no growth Vancomycin Plan/Comments: recommend restarting Vancomycin at 1250mg q12h and checking a trough prior to the 4th dose Pending Level: 11/26/22 at 2030 Pharmacy Service will continue to monitor and adjust dosing as required. Follow-Up Labs: Trough Vancomycin - 11/26/22 at 2030
[2022-11-25 08:34] VITALS: BP 146/94; PULSE 90; RESP 17; TEMP 36.5; O2SAT 96
[2022-11-25] MEDS: Pantoprazole Sodium 40 MG Tablet PO (08:42)
[2022-11-25] MEDS: Enoxaparin 40 MG/0.4 ML Syringe SC (08:44)
--- NOTE | 2022-11-25 10:35 | PCM.PN.ID ---
Physical Exam Narrative Legs still painful, no fever, no n/v/d. Const alert and no apparent distress General Appearance: cooperative Resp normal air movement and clear to auscultation bilaterally Cardio regular rate and regular rhythm GI soft to palpation, non-tender and non-distended Skin Skin Narrative: BLE wrapped ID ID: Route of nutrition/ use of supplements: [] Nutritional Intake: [] IV Site: [] Cheatham Catheter: [] Assessment & Plan Assessment/Plan (1) Cellulitis of anterior lower leg: PLAN: with underlying severe sunburn to BLE. No wound cxs sent. On empiric vanc/zosyn, day 5. D/w wound care, drainage is serous. Wbc now normal. No fever. Will cont abx, likely will be able to stop soon. Will follow (2) Sunburn of second degree:
--- NOTE | 2022-11-25 14:07 | CHAPLAIN ---
Type of Pastoral Visit ___ Initial Visit _x__ Follow-up Visit ___ On-call Visit ___ General Patient Visit ___ Spiritual Assessment ___ Family Conference ___ Bereavement ___ Rapid Response ___ Code Blue ___ Other (describe below) Pastoral Care Referral From _x__ Patient ___ Family ___ Nurse ___ Physician ___ Solution Design Engineer ___ Stake Driver ___ Other (describe below) Sacrament/Intervention _x__ Active listening ___ Anointing ___ Yazidi ___ Bereavement ___ Communion _x__ Glory exploration ___ ___ Life review _x__ Prayer ___ Reconciliation ___ Sacrament of Sick _x__ Supportive presence ___ Wedding ___ Other (describe below) Pastoral Comments follow up visit to patient at his request; pt is sitting up in bed and is calm and welcoming; pt states that he is getting better; 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
[2022-11-25 15:20] VITALS: BP 146/87; PULSE 83; RESP 17; TEMP 36.8; O2SAT 100
[2022-11-25 20:00] VITALS: BP 152/85; PULSE 88; RESP 16; TEMP 37; O2SAT 97
[2022-11-25 22:00] VITALS: PULSE 75; RESP 16
[2022-11-25] MEDS: Senna/Docusate Sodium 1 Tablet 2 TABLET PO (22:01)
[2022-11-25] MEDS: Acetaminophen 325 MG Tablet 650 MG PO (22:01)
[2022-11-26 02:00] VITALS: BP 136/92; PULSE 97; RESP 16; TEMP 36.8; O2SAT 96
[2022-11-26 05:36] VITALS: BMI 32.5
[2022-11-26 06:13] LABS: Absolute Lymphocyte Count 1.69 X10^3/uL (0.83-4.51); Absolute Neutrophil Count 7.2 X10^3/uL (2.0-7.7); Basophil# 0.04 X10^3/uL; Basophil% 0.4 % (0-1); Eosinophil# 0.09 X10^3/uL; Eosinophils% 0.9 % (0-5); Hematocrit 37.9 % (40-54); Hemoglobin 12.2 g/dL (13.0-16.5); Lymphocyte # 1.69 X10^3/ul (0.83-4.51); Lymphocyte % 17.4 % (19-41); Mean Corp Hgb Conc 32.2 g/dL (32-36); Mean Corpuscular Hgb 33.3 pg (27.0-32.0); Mean Corpuscular Volume 103.6 fL (80-94); Mean Platelet Vol. 9.7 fl (6.2-12.0); Monocyte# 0.62 X10^3/uL; Monocyte% 6.4 % (0-10); NRBC Flagged by Analyzer 0 % (0-5); Neutrophil % 74.1 % (47-70); Platelet Count 319 K/mm3 (150-450); RBC Distribution Width CV 13.4 % (11.6-14.6); RBC Distribution Width SD 52.1 fl (35.1-43.9); Red Blood Count 3.66 M/mm3 (4.6-6.2); White Blood Count 9.7 K/mm3 (4.4-11.0)
[2022-11-26] MEDS: Morphine 4 MG/ML Syringe IV ×5 (06:16→20:33)
[2022-11-26 06:58] LABS: ALB/GLOB Ratio 0.3 RATIO (0.9-2.4); AST(SGOT) 27 U/L (15-37); Alanine Aminotransfer ALT/SGPT 21 U/L (16-61); Albumin, Serum 1.6 g/dL (3.2-5.0); Alkaline Phosphatase 84 U/L (45-117); Anion Gap 4 (5-15); BUN 11 mg/dL (7-18); BUN/Creat Ratio 15.1 RATIO (10-20); Calcium,Total 8.1 mg/dL (8.5-10.1); Chloride 109 mmol/L (98-107); Creatinine, Serum 0.73 mg/dL (0.70-1.30); EST Glomerular Filtration Rate 116 mL/min (>60); Est Glom Filt Rate - Afr Amer 140 mL/min (>60); Estimated Creatinine Clearance 115.16 ml/min; Globulin 5.3 g/dL (2.2-4.2); Glucose 116 mg/dL (74-106); Potassium 4.2 mmol/L (3.5-5.1); Protein, Total 6.9 g/dL (6.4-8.2); Sodium Level 138 mmol/L (136-145)
--- NOTE | 2022-11-26 07:47 | PCM.PN.HOSP ---
Reason for Visit Reason for Visit: Diagnoses Cellulitis of unspecified part of limb (11/20/22) Sunburn of second degree (11/20/22) Subjective Subjective Patient seen, strength is improving. Plan for patient to be discharged to [facility] possibly in 1 to 2 days Objective Data Objective Data Vital Signs: Vital Signs Temp Pulse Resp BP Pulse Ox O2 Del Method 98.2 F 97 16 136/92 H 96 Room Air 11/26/22 02:00 11/26/22 02:00 11/26/22 02:00 11/26/22 02:00 11/26/22 02:00 11/26/22 02:00 Oxygen Delivery Method Room Air Weight: 108.8 kg Body Mass Index (BMI) 32.5 Intake & Output: Intake and Output for Last 24 Hours 11/24/22 11/25/22 11/26/22 23:59 23:59 23:59 Intake Total 3280 / 3280 1625 / 1625 325 / 325 Output Total 850 / 850 400 / 800 400 / 400 Balance 2430 / 2430 1225 / 825 -75 / -75 Lab / Micro Data Result Diagrams: 11/26/22 05:50 11/26/22 05:50 Labs: Laboratory Results - last 24 hr 11/26/22 05:50: WBC 9.7, RBC 3.66 L, Hgb 12.2 L, Hct 37.9 L, MCV 103.6 H, MCH 33.3 H, MCHC 32.2, RDW Std Deviation 52.1 H, RDW Coeff of [place]acia 13.4, Plt Count 319, MPV 9.7, Immature Gran % (Auto) 0.800, Neut % (Auto) 74.1 H, Lymph % (Auto) 17.4 L, [place] % (Auto) 6.4, Eos % (Auto) 0.9, Baso % (Auto) 0.4, Absolute Neuts (auto) 7.2, Absolute Lymphs (auto) 1.69, Nucleated RBC % 0 11/26/22 05:50: Sodium 138, Potassium 4.2, Chloride 109 H, Carbon Dioxide 25.0, Anion Gap 4 L, BUN 11, Creatinine 0.73, Estim Creat Clear Calc 115.16, Est GFR (MDRD) Af Amer 140, Est GFR (MDRD) Non-Af 116, BUN/Creatinine Ratio 15.1, Glucose 116 H, Calcium 8.1 L, Total Bilirubin 0.30, AST 27, ALT 21, Alkaline Phosphatase 84, Total Protein 6.9, Albumin 1.6 L, Globulin 5.3 H, Albumin/Globulin Ratio 0.3 L Micro: Microbiology 11/20/22 16:44 Blood Culture (Wb) - Right Wrist Blood Culture - Final No growth in 5 days. 11/20/22 17:48 Blood Culture (Wb) - Left Wrist Blood Culture - Preliminary Physical Exam Narrative GENERAL: cooperative HEENT: Atraumatic; normocephalic EYES; Anicteric, Normal Conjunctiva NECK; supple, normal thyroid, RESPIRATORY: Diminished to auscultation CARDIOVASCULAR: Regular S1 S2, GI: soft, normoactive bowel sounds, : No Renal angle tenderness; EXTREMITIES: No edema, no clubbing, MUSCULOSKELETAL: no muscle wasting NEURO: Awake; no lateralizing signs. SKIN: Bilateral lower extremities erythematous and weeping with large slightly less tense blister on top of left foot, some sloughing on right PSYCH; Flat affect Assessment & Plan Assessment/Plan (1) Sunburn of second degree: (2) Cellulitis of anterior lower leg: PLAN: Plan Patient is a 62-year-old gentleman with history of learning disability admitted with sepsis secondary to bilateral lower extremity cellulitis 1. Sepsis secondary to bilateral lower extremity cellulitis ? Patient managed with broad-spectrum antibiotic therapy, cultures sent consult placed to ID ? 12/12/2022 patient wound cultures so far negative to date. Patient was seen in consultation by Dr. Brenner with ID's notes and recommendations reviewed 2. Learning disability ? Supportive care Case management consulted to assist with disposition 3.Chronic spondylosis with sciatica -Patient is followed by Dr. Rogers with spine surgery as outpatient 4. DVT prophylaxis ? [place] Lovenox 5. Physical deconditioning - Requested for PT OT eval and social work case manager to assist with discharge planning - 11/26/2022 ; Patient seen, strength is improving. Plan for patient to be discharged to [facility] possibly in 1 to 2 days Time spent in the patient's overall evaluation,decision-making process, review of diagnostic data, adjustment of management, discussion with other providers, nursing nursing and ancillary staff involved in patient's care documentation, 35 Minutes Charges/Coding Visit Charges Inpatient E&M: 25330 Subs Hosp L2
[2022-11-26 08:00] VITALS: BP 170/101; PULSE 84; RESP 20; TEMP 36.4; O2SAT 100
[2022-11-26] MEDS: Enoxaparin 40 MG/0.4 ML Syringe SC (09:38)
[2022-11-26] MEDS: Pantoprazole Sodium 40 MG Tablet PO (09:38)
--- NOTE | 2022-11-26 13:52 | PCM.PN.ID ---
Physical Exam Narrative Feeling better, legs less sore, no fever Const alert and no apparent distress General Appearance: cooperative Resp normal air movement and clear to auscultation bilaterally Cardio regular rate and regular rhythm GI soft to palpation, non-tender and non-distended Skin Skin Narrative: BLE wrapped ID ID: Route of nutrition/ use of supplements: [] Nutritional Intake: [] IV Site: [] Cheatham Catheter: [] Assessment & Plan Assessment/Plan (1) Cellulitis of anterior lower leg: PLAN: with ? underlying severe sunburn to BLE. No wound cxs sent. On empiric vanc/zosyn, day 6. D/w wound care, drainage is serous. Wbc now normal. No fever. Will plan on stopping abx tomorrow. D/w wound care. Will follow (2) Sunburn of second degree:
[2022-11-26 15:55] VITALS: BP 142/83; PULSE 79; RESP 18; TEMP 36.7; O2SAT 99
[2022-11-26 20:26] VITALS: BP 172/104; PULSE 95; RESP 18; TEMP 36.6; O2SAT 98
[2022-11-26 21:10] LABS: Vancomycin, Trough Level 17.2 ug/mL (5.0-15.0)
--- NOTE | 2022-11-26 21:13 | PCM.RX.CS ---
Consult Pharmacy has been consulted to manage selected antiobiotic: Vancomycin Type of Consult: Follow-up Labs: Sodium 138 mmol/L (136-145) 11/26/22 05:50 Potassium 4.2 mmol/L (3.5-5.1) 11/26/22 05:50 Chloride 109 mmol/L (98-107) H 11/26/22 05:50 Carbon Dioxide 25.0 mmol/L (21.0-32.0) 11/26/22 05:50 Anion Gap 4 (5-15) L 11/26/22 05:50 BUN 11 mg/dL (7-18) 11/26/22 05:50 Creatinine 0.73 mg/dL (0.70-1.30) 11/26/22 05:50 Est GFR (MDRD) Af Amer 140 mL/min (>60) 11/26/22 05:50 Est GFR (MDRD) Non-Af 116 mL/min (>60) 11/26/22 05:50 BUN/Creatinine Ratio 15.1 RATIO (10-20) 11/26/22 05:50 Glucose 116 mg/dL (74-106) H 11/26/22 05:50 Vancomycin Trough 17.2 ug/mL (5.0-15.0) H 11/26/22 20:30 Random Vancomycin 13.9 ug/mL (0.0-15.0) 11/25/22 06:02 Microbiology: Microbiology 11/20/22 16:44 Blood Culture (Wb) - Right Wrist Blood Culture - Final No growth in 5 days. 11/20/22 17:48 Blood Culture (Wb) - Left Wrist Blood Culture - Preliminary Goal Trough: 15-20 mcg/mL Pharmacy Plan for Drug Dosing: Pharmacy Service will continue to monitor and adjust dosing as required. TROUGH 17.2 NO CHANGES, FOLLOW UP TROUGH IN 2 DAYS Follow-Up Labs: Trough Vancomycin Labs to be done on [date and time ordered]: 11/28 @ 7170
[2022-11-27] MEDS: Morphine 4 MG/ML Syringe IV ×5 (02:15→20:04)
[2022-11-27 02:30] VITALS: BP 145/84; PULSE 92; RESP 18; TEMP 36.5; O2SAT 97
[2022-11-27 03:38] VITALS: BMI 32.3
[2022-11-27 05:37] LABS: Absolute Lymphocyte Count 1.88 X10^3/uL (0.83-4.51); Absolute Neutrophil Count 7.1 X10^3/uL (2.0-7.7); Basophil# 0.04 X10^3/uL; Basophil% 0.4 % (0-1); Eosinophil# 0.06 X10^3/uL; Eosinophils% 0.6 % (0-5); Hematocrit 37.8 % (40-54); Hemoglobin 12.5 g/dL (13.0-16.5); Lymphocyte # 1.88 X10^3/ul (0.83-4.51); Lymphocyte % 19.2 % (19-41); Mean Corp Hgb Conc 33.1 g/dL (32-36); Mean Corpuscular Hgb 33.7 pg (27.0-32.0); Mean Corpuscular Volume 101.9 fL (80-94); Mean Platelet Vol. 9.4 fl (6.2-12.0); Monocyte# 0.63 X10^3/uL; Monocyte% 6.4 % (0-10); NRBC Flagged by Analyzer 0 % (0-5); Neutrophil # 7.11 X10^3/uL (2.7-7.7); Neutrophil % 72.9 % (47-70); Platelet Count 320 K/mm3 (150-450); RBC Distribution Width CV 13.2 % (11.6-14.6); Red Blood Count 3.71 M/mm3 (4.6-6.2); White Blood Count 9.8 K/mm3 (4.4-11.0)
[2022-11-27 06:12] LABS: ALB/GLOB Ratio 0.3 RATIO (0.9-2.4); AST(SGOT) 23 U/L (15-37); Alanine Aminotransfer ALT/SGPT 22 U/L (16-61); Albumin, Serum 1.8 g/dL (3.2-5.0); Alkaline Phosphatase 83 U/L (45-117); Anion Gap 2 (5-15); BUN 12 mg/dL (7-18); BUN/Creat Ratio 15.7 RATIO (10-20); Calcium,Total 8.4 mg/dL (8.5-10.1); Chloride 108 mmol/L (98-107); Creatinine, Serum 0.76 mg/dL (0.70-1.30); EST Glomerular Filtration Rate 110 mL/min (>60); Est Glom Filt Rate - Afr Amer 133 mL/min (>60); Estimated Creatinine Clearance 110.61 ml/min; Glucose 83 mg/dL (74-106); Potassium 4.3 mmol/L (3.5-5.1); Protein, Total 7.8 g/dL (6.4-8.2); Sodium Level 138 mmol/L (136-145)
[2022-11-27 08:30] VITALS: BP 145/73; PULSE 75; RESP 16; TEMP 36.7; O2SAT 97
[2022-11-27] MEDS: Pantoprazole Sodium 40 MG Tablet PO (08:52)
[2022-11-27] MEDS: Enoxaparin 40 MG/0.4 ML Syringe SC (08:52)
--- NOTE | 2022-11-27 09:30 | PCM.PN.HOSP ---
Reason for Visit Reason for Visit: Diagnoses Cellulitis of unspecified part of limb (11/20/22) Sunburn of second degree (11/20/22) Subjective Subjective Patient seen overall clinical condition continues to improve. Patient was able to participate in physical therapy with some ambulation. We will reach out to the crisis center for patient to be transferred to a retirement facility Objective Data Objective Data Vital Signs: Vital Signs Temp Pulse Resp BP Pulse Ox O2 Del Method 98.1 F 75 16 145/73 H 97 Room Air 11/27/22 08:30 11/27/22 08:30 11/27/22 08:30 11/27/22 08:30 11/27/22 08:30 11/27/22 08:46 Oxygen Delivery Method Room Air Weight: 108.4 kg Body Mass Index (BMI) 32.3 Intake & Output: Intake and Output for Last 24 Hours 11/25/22 11/26/22 11/27/22 23:59 23:59 23:59 Intake Total 1625 / 1625 2260 / 2260 50 / 50 Output Total 400 / 800 400 / 400 750 / 750 Balance 1225 / 825 1860 / 1860 -700 / -700 Lab / Micro Data Result Diagrams: 11/27/22 05:17 11/27/22 05:17 Labs: Laboratory Results - last 24 hr 11/26/22 20:30: Vancomycin Trough 17.2 H 11/27/22 05:17: WBC 9.8, RBC 3.71 L, Hgb 12.5 L, Hct 37.8 L, MCV 101.9 H, MCH 33.7 H, MCHC 33.1, RDW Std Deviation 50.0 H, RDW Coeff of Dacia 13.2, Plt Count 320, MPV 9.4, Immature Gran % (Auto) 0.500, Neut % (Auto) 72.9 H, Lymph % (Auto) 19.2, [place] % (Auto) 6.4, Eos % (Auto) 0.6, Baso % (Auto) 0.4, Absolute Neuts (auto) 7.1, Absolute Lymphs (auto) 1.88, Nucleated RBC % 0 11/27/22 05:17: Sodium 138, Potassium 4.3, Chloride 108 H, Carbon Dioxide 28.0, Anion Gap 2 L, BUN 12, Creatinine 0.76, Estim Creat Clear Calc 110.61, Est GFR (MDRD) Af Amer 133, Est GFR (MDRD) Non-Af 110, BUN/Creatinine Ratio 15.7, Glucose 83, Calcium 8.4 L, Total Bilirubin 0.30, AST 23, ALT 22, Alkaline Phosphatase 83, Total Protein 7.8, Albumin 1.8 L, Globulin 6.0 H, Albumin/Globulin Ratio 0.3 L Micro: Microbiology 11/20/22 17:48 Blood Culture (Wb) - Left Wrist Blood Culture - Preliminary 11/20/22 16:44 Blood Culture (Wb) - Right Wrist Blood Culture - Final No growth in 5 days. Physical Exam Narrative GENERAL: cooperative HEENT: Atraumatic; normocephalic EYES; Anicteric, Normal Conjunctiva NECK; supple, normal thyroid, RESPIRATORY: Diminished to auscultation CARDIOVASCULAR: Regular S1 S2, GI: soft, normoactive bowel sounds, : No Renal angle tenderness; EXTREMITIES: No edema, no clubbing, MUSCULOSKELETAL: no muscle wasting NEURO: Awake; no lateralizing signs. SKIN: Bilateral lower extremities erythematous and weeping with large slightly less tense blister on top of left foot, some sloughing on right PSYCH; Flat affect Assessment & Plan Assessment/Plan (1) Sunburn of second degree: (2) Cellulitis of anterior lower leg: PLAN: Plan Patient is a 62-year-old gentleman with history of learning disability admitted with sepsis secondary to bilateral lower extremity cellulitis 1. Sepsis secondary to bilateral lower extremity cellulitis ? Patient managed with broad-spectrum antibiotic therapy, cultures sent consult placed to ID ? 12/12/2022 patient wound cultures so far negative to date. Patient was seen in consultation by Dr. Brenner with ID's notes and recommendations reviewed 2. Learning disability ? Supportive care Case management consulted to assist with disposition 3.Chronic spondylosis with sciatica -Patient is followed by Dr. Peters with spine surgery as outpatient 4. DVT prophylaxis ? [place] Lovenox 5. Physical deconditioning - Requested for PT OT eval and social worker delinquency prevention to assist with discharge planning - 11/26/2022 ; Patient seen, strength is improving. Plan for patient to be discharged to [facility] possibly in 1 to 2 days -11/27/2022 : Patient seen overall clinical condition continues to improve. Patient was able to participate in physical therapy with some ambulation. We will reach out to the crisis center for patient to be transferred to a retirement facility Time spent in the patient's overall evaluation,decision-making process, review of diagnostic data, adjustment of management, discussion with other providers, nursing nursing and ancillary staff involved in patient's care documentation, 35 Minutes Charges/Coding Visit Charges Inpatient E&M: 37905 Subs Hosp L2
--- NOTE | 2022-11-27 09:57 | CASEMGMT ---
Patient is ready for discharge to a psychiatric unit. ADRIENNE called crisis and spoke with Katerina letting her know patient is medically ready. SW also faxed over updated information and requested RN do a COVID test for patient. Vilma Miller MSW [place]
--- NOTE | 2022-11-27 11:00 | NURSING ---
Care of patient assumed by this nurse.
--- NOTE | 2022-11-27 11:15 | CASEMGMT ---
Katerina from crisis did see patient to re-evaluate. Katerina will work on placing patient. Vilma Miller SILVERING DEPARTMENT SUPERVISOR [place]
--- NOTE | 2022-11-27 11:18 | PCM.PN.ID ---
Physical Exam Narrative Feeling ok, pain improved, no fever, no n/v/d. Const alert and no apparent distress Resp normal air movement and clear to auscultation bilaterally Cardio regular rate and regular rhythm GI soft to palpation, non-tender and non-distended Skin Skin Narrative: BLE wrapped ID ID: Route of nutrition/ use of supplements: [] Nutritional Intake: [] IV Site: [] [place] Catheter: [] Assessment & Plan Assessment/Plan (1) Cellulitis of anterior lower leg: PLAN: with ? underlying severe sunburn to BLE. No wound cxs sent. On empiric vanc/zosyn, day 7. Wbc now normal. No fever. Will stop abx today. Will follow (2) Sunburn of second degree:
[2022-11-27] MEDS: 0.9% Saline Lock 10 ML Syringe IV ×3 (12:45→20:06)
--- NOTE | 2022-11-27 13:40 | EKG12_ITS ---
Test Reason : CP Blood Pressure : / mmHG Vent. Rate : 084 BPM Atrial Rate : 084 BPM P-R Int : 170 ms QRS Dur : 090 ms QT Int : 368 ms P-R-T Axes : 051 -31 037 degrees QTc Int : 434 ms Normal sinus rhythm Left axis deviation Abnormal ECG When compared with ECG of 23-JUL-2022 15:25, No significant change was found Confirmed by NASEEM MCGREGOR, HAMLET ([id number]), supervising editor trailer JOSEMANUEL CARRILLO ([id number]) on 12/01/2022 11:14:25 AM Referred By: MEL Confirmed By:HAMLET GUSMAN MD
--- NOTE | 2022-11-27 13:49 | PCM.HOSP.N ---
Hospitalist Note Patient is medically stable to be transferred to an inpatient psychiatric facility
[2022-11-27 14:30] VITALS: BP 145/82; PULSE 80; RESP 16; TEMP 36.6; O2SAT 100
--- NOTE | 2022-11-27 15:27 | PCM.DC.SUM ---
Providers Date of Admission: 11/20/22 Primary Care Physician: Brea Primary Care Phys Consultations 11/20/22 20:51 Consult: Onc/Wound/inspector returned materials Routine Comment: Reason for Consult:: B/L legs cellulitis Consult: Orthopedics Routine Consulting Provider: Juan Ledezma Reason for Consult: B/L leg suspected Deep tissue infection EMERGENT Consult: No Notified: Yes Date Notified: 11/20/22 Time Notified: 20:46 Method of Notification: ED Physician Initiated 11/22/22 07:54 Consult: Infectious Disease Routine Consulting Provider: Jaime Brenner Reason for Consult: BLE cellulitis with bullae and sloughing EMERGENT Consult: No Notified: Yes Date Notified: 11/24/22 Time Notified: 06:01 Method of Notification: Answering Service Reason For Visit: SEPSIS FROM CELLUITIS Diagnosis Discharge Diagnosis (1) Cellulitis of anterior lower leg: Status: Inactive Code(s): L03.119 - Cellulitis of unspecified part of limb (2) Sunburn of second degree: Status: Acute Code(s): L55.1 - Sunburn of second degree Plan Patient is a 62-year-old gentleman with history of learning disability admitted with sepsis secondary to bilateral lower extremity cellulitis 1. Sepsis secondary to bilateral lower extremity cellulitis ? Patient managed with broad-spectrum antibiotic therapy, cultures sent consult placed to ID ? 12/12/2022 patient wound cultures so far negative to date. Patient was seen in consultation by Dr. Brenner with ID's notes and recommendations reviewed 2. Learning disability ? Supportive care Case management consulted to assist with disposition 3.Chronic spondylosis with sciatica -Patient is followed by Dr. Peters with spine surgery as outpatient 4. DVT prophylaxis ? SC Lovenox 5. Physical deconditioning - Requested for PT OT eval and clinical social worker to assist with discharge planning - 11/26/2022 ; Patient seen, strength is improving. Plan for patient to be discharged to [facility] in 1 to 2 days -11/27/2022 : Patient seen overall clinical condition continues to improve. Patient was able to participate in physical therapy with some ambulation. We will reach out to the crisis center for patient to be transferred to a residential facility Time spent in the patient's overall evaluation,decision-making process, review of diagnostic data, adjustment of management, discussion with other providers, nursing nursing and ancillary staff involved in patient's care documentation, 35 Minutes Medications at Discharge Home Medications ibuprofen 200 mg tablet 200 mg PO Q6H PRN Pain 11/20/22 Weight / BMI Weight Weight: 108.4 kg Body Mass Index (BMI) 32.3 ABG / Lab / Microbiology Data Result Diagrams: 11/27/22 05:17 11/27/22 05:17 Laboratory: Laboratory Results - last 24 hr 11/26/22 20:30: Vancomycin Trough 17.2 H 11/27/22 05:17: WBC 9.8, RBC 3.71 L, Hgb 12.5 L, Hct 37.8 L, MCV 101.9 H, MCH 33.7 H, MCHC 33.1, RDW Std Deviation 50.0 H, RDW Coeff of Dacia 13.2, Plt Count 320, MPV 9.4, Immature Gran % (Auto) 0.500, Neut % (Auto) 72.9 H, Lymph % (Auto) 19.2, [place] % (Auto) 6.4, Eos % (Auto) 0.6, Baso % (Auto) 0.4, Absolute Neuts (auto) 7.1, Absolute Lymphs (auto) 1.88, Nucleated RBC % 0 11/27/22 05:17: Sodium 138, Potassium 4.3, Chloride 108 H, Carbon Dioxide 28.0, Anion Gap 2 L, BUN 12, Creatinine 0.76, Estim Creat Clear Calc 110.61, Est GFR (MDRD) Af Amer 133, Est GFR (MDRD) Non-Af 110, BUN/Creatinine Ratio 15.7, Glucose 83, Calcium 8.4 L, Total Bilirubin 0.30, AST 23, ALT 22, Alkaline Phosphatase 83, Total Protein 7.8, Albumin 1.8 L, Globulin 6.0 H, Albumin/Globulin Ratio 0.3 L Microbiology: Microbiology 11/27/22 10:05 Nasal Secretion SARS-CoV-2 Antigen (Rapid) - Final 11/20/22 17:48 Blood Culture (Wb) - Left Wrist Blood Culture - Preliminary 11/20/22 16:44 Blood Culture (Wb) - Right Wrist Blood Culture - Final No growth in 5 days. Discharge Plan Admission Admit Date/Time: 11/20/22 18:11 Attending Provider: Marlon Villa Primary Care Provider: Care Physician,No Primary Consulting Providers: Juan Ledezma ; Elmer Keita ; Jaime Brenner ; Erika Mathews Discharge Orders/Prescriptions Prescriptions: Continued ibuprofen 200 mg Tablet 200 mg PO Q6H PRN (Reason: Pain) Referrals / Follow Up: Care Physician,No Primary [Primary Care Provider] - Disposition Disposition (needs filled in before D/C Order can be placed): Psychiatric Hospital or Unit
[2022-11-27 20:12] VITALS: BP 140/95; PULSE 88; RESP 16; TEMP 36.7; O2SAT 97
[2022-11-27] MEDS: Morphine 2 MG/ML Syringe IV (23:36)
[2022-11-28 03:15] VITALS: BP 138/85; PULSE 83; RESP 16; TEMP 36.7; O2SAT 97
[2022-11-28] MEDS: Morphine 2 MG/ML Syringe IV ×2 (03:27→06:38)
[2022-11-28 05:50] LABS: Absolute Lymphocyte Count 2.51 X10^3/uL (0.83-4.51); Absolute Neutrophil Count 8.1 X10^3/uL (2.0-7.7); Basophil# 0.06 X10^3/uL; Basophil% 0.5 % (0-1); Eosinophil# 0.07 X10^3/uL; Eosinophils% 0.6 % (0-5); Hemoglobin 14.1 g/dL (13.0-16.5); Lymphocyte # 2.51 X10^3/ul (0.83-4.51); Lymphocyte % 22.2 % (19-41); Mean Corp Hgb Conc 33.6 g/dL (32-36); Mean Corpuscular Hgb 33.9 pg (27.0-32.0); Mean Platelet Vol. 9.3 fl (6.2-12.0); Monocyte# 0.57 X10^3/uL; NRBC Flagged by Analyzer 0 % (0-5); Neutrophil # 8.06 X10^3/uL (2.7-7.7); Neutrophil % 71.3 % (47-70); Platelet Count 403 K/mm3 (150-450); RBC Distribution Width CV 13.1 % (11.6-14.6); RBC Distribution Width SD 48.9 fl (35.1-43.9); Red Blood Count 4.16 M/mm3 (4.6-6.2); White Blood Count 11.3 K/mm3 (4.4-11.0)
[2022-11-28 06:00] VITALS: BMI 31.4
[2022-11-28 06:28] LABS: ALB/GLOB Ratio 0.3 RATIO (0.9-2.4); AST(SGOT) 26 U/L (15-37); Alanine Aminotransfer ALT/SGPT 24 U/L (16-61); Albumin, Serum 2.1 g/dL (3.2-5.0); Alkaline Phosphatase 97 U/L (45-117); Anion Gap 6 (5-15); BUN 15 mg/dL (7-18); BUN/Creat Ratio 18.9 RATIO (10-20); Calcium,Total 8.9 mg/dL (8.5-10.1); Chloride 106 mmol/L (98-107); Creatinine, Serum 0.79 mg/dL (0.70-1.30); EST Glomerular Filtration Rate 105 mL/min (>60); Est Glom Filt Rate - Afr Amer 127 mL/min (>60); Estimated Creatinine Clearance 106.41 ml/min; Globulin 6.6 g/dL (2.2-4.2); Glucose 114 mg/dL (74-106); Potassium 4.3 mmol/L (3.5-5.1); Protein, Total 8.7 g/dL (6.4-8.2); Sodium Level 135 mmol/L (136-145)
[2022-11-28] MEDS: 0.9% Saline Lock 10 ML Syringe IV (06:38)
[2022-11-28 07:45] VITALS: BP 154/94; PULSE 86; RESP 16; TEMP 36.7; O2SAT 98
--- NOTE | 2022-11-28 07:48 | PN.HOSP_ITS ---
Reason for Visit Reason for Visit: Diagnoses Cellulitis of unspecified part of limb (11/20/22) Sunburn of second degree (11/20/22) Subjective Subjective Patient seen patient is medically stable for transfer to [facility] Objective Data Objective Data Vital Signs: Vital Signs Temp Pulse Resp BP Pulse Ox O2 Del Method 98.0 F 83 16 138/85 H 97 Room Air 11/28/22 03:15 11/28/22 03:15 11/28/22 03:15 11/28/22 03:15 11/28/22 03:15 11/28/22 03:15 Oxygen Delivery Method Room Air Weight: 105 kg Body Mass Index (BMI) 31.4 Intake & Output: Intake and Output for Last 24 Hours 11/26/22 11/27/22 11/28/22 23:59 23:59 23:59 Intake Total 2260 / 2260 855 / 1095 440 / 440 Output Total 400 / 400 3450 / 3950 1100 / 1100 Balance 1860 / 1860 -2595 / -2855 -660 / -660 Lab / Micro Data Result Diagrams: 11/28/22 05:28 11/28/22 05:28 Labs: Laboratory Results - last 24 hr 11/28/22 05:28: WBC 11.3 H, RBC 4.16 L, Hgb 14.1, Hct 42.0, MCV 101.0 H, MCH 33.9 H, MCHC 33.6, RDW Std Deviation 48.9 H, RDW Coeff of Dacia 13.1, Plt Count 403, MPV 9.3, Immature Gran % (Auto) 0.400, Neut % (Auto) 71.3 H, Lymph % (Auto) 22.2, [place] % (Auto) 5.0, Eos % (Auto) 0.6, Baso % (Auto) 0.5, Absolute Neuts (auto) 8.1 H, Absolute Lymphs (auto) 2.51, Nucleated RBC % 0 11/28/22 05:28: Sodium 135 L, Potassium 4.3, Chloride 106, Carbon Dioxide 23.0, Anion Gap 6, BUN 15, Creatinine 0.79, Estim Creat Clear Calc 106.41, Est GFR (MDRD) Af Amer 127, Est GFR (MDRD) Non-Af 105, BUN/Creatinine Ratio 18.9, Glucose 114 H, Calcium 8.9, Total Bilirubin 0.30, AST 26, ALT 24, Alkaline Phosphatase 97, Total Protein 8.7 H, Albumin 2.1 L, Globulin 6.6 H, Albumin/Globulin Ratio 0.3 L Micro: Microbiology 11/27/22 10:05 Nasal Secretion SARS-CoV-2 Antigen (Rapid) - Final 11/20/22 17:48 Blood Culture (Wb) - Left Wrist Blood Culture - Preliminary 11/20/22 16:44 Blood Culture (Wb) - Right Wrist Blood Culture - Final No growth in 5 days. Physical Exam Narrative GENERAL: cooperative HEENT: Atraumatic; normocephalic EYES; Anicteric, Normal Conjunctiva NECK; supple, normal thyroid, RESPIRATORY: Diminished to auscultation CARDIOVASCULAR: Regular S1 S2, GI: soft, normoactive bowel sounds, : No Renal angle tenderness; EXTREMITIES: No edema, no clubbing, MUSCULOSKELETAL: no muscle wasting NEURO: Awake; no lateralizing signs. SKIN: Bilateral lower extremities erythematous and weeping with large slightly less tense blister on top of left foot, some sloughing on right PSYCH; Flat affect Assessment & Plan Assessment/Plan (1) Cellulitis of anterior lower leg: (2) Sunburn of second degree: PLAN: Plan Patient is a 62-year-old gentleman with history of learning disability admitted with sepsis secondary to bilateral lower extremity cellulitis 1. Sepsis secondary to bilateral lower extremity cellulitis ? Patient managed with broad-spectrum antibiotic therapy, cultures sent consult placed to ID ? 11/25/2022 patient wound cultures so far negative to date. Patient was seen in consultation by Dr. Brenner with ID's notes and recommendations reviewed ? 11/27/2022; patient is currently not on any antibiotic therapy. Morphine has been discontinued 2. Learning disability ? Supportive care Case management consulted to assist with disposition 3.Chronic spondylosis with sciatica -Patient is followed by Dr. Peters with spine surgery as outpatient 4. DVT prophylaxis ? SC Lovenox 5. Physical deconditioning - Requested for PT OT eval and pediatric social worker to assist with discharge planning - 11/26/2022 ; Patient seen, strength is improving. Plan for patient to be di scharged to [facility] possibly in 1 to 2 days -11/27/2022 : Patient seen overall clinical condition continues to improve. Patient was able to participate in physical therapy with some ambulation. We will reach out to the crisis center for patient to be transferred to [facility] ?11/28/2022; patient is medically stable for transfer Time spent in the patient's overall evaluation,decision-making process, review of diagnostic data, adjustment of management, discussion with other providers, nursing nursing and ancillary staff involved in patient's care documentation, 35 Minutes Charges/Coding Visit Charges Inpatient E&M: 62631 Subs Hosp L2
[2022-11-28] MEDS: Enoxaparin 40 MG/0.4 ML Syringe SC (10:28)
[2022-11-28] MEDS: Pantoprazole Sodium 40 MG Tablet PO (10:28)
[2022-11-28] MEDS: Acetaminophen 325 MG Tablet 650 MG PO ×3 (10:30→22:30)
--- NOTE | 2022-11-28 10:32 | CASEMGMT ---
ADRIENNE was informed by RN that there are some complications with patient's chart and being ready for discharge. ADRIENNE called crisis and spoke with Katerina. Per Katerina patient is not medically cleared until he is no longer on the IV Morphine. Katerina also said patient cannot have a picc line. ADRIENNE let Katerina know patient will not be discharged with the picc line. Katerina also said that the physicians's note reads halfway facility and that needs changed. SW notified physician and changes will be made. Vilma Miller INVASIVE MANAGER KIMBERLYN
--- NOTE | 2022-11-28 11:09 | WOUNDNOTE ---
wound photo: right lower leg
--- NOTE | 2022-11-28 11:10 | WOUNDNOTE ---
wound photo: right lower leg
--- NOTE | 2022-11-28 11:10 | WOUNDNOTE ---
wound photo: left lower leg
--- NOTE | 2022-11-28 11:55 | CASEMGMT ---
ADRIENNE sent updated information to crisis indicating Morphine has been discontinued, patient is medically ready, and care home facility has been removed from physician note. Vilma Miller MSW KIMBERLYN
[2022-11-28 14:01] VITALS: BP 148/77; PULSE 86; RESP 18; TEMP 36.8; O2SAT 99
--- NOTE | 2022-11-28 15:40 | CASEMGMT ---
ADRIENNE spoke with Lena at [facility]. ADRIENNE let Lena know that SW sent updates and patient is medically ready. Lena asked why patient has a picc line. ADRIENNE told Lena that the picc line is in because patient does not have good IV access and he was getting IV antibiotics earlier this stay. ADRIENNE explained that when patient is discharged the picc line will be removed. Lena said they would have a better chance of getting patient into a facility if he did not have the picc line. ADRIENNE can message the Dr to see if this can be done. Lena asked about patient's mobility. ADRIENNE spoke with therapy and patient's RN regarding patient's mobility. Patient is physically able to ambulate, but he chooses to only go so far as his feet hurt. ADRIENNE let Lena know this information, however Lena said patient will need to be able to walk a certain distance before any psych units will take patient. Lena said patient will have to be able to do all of his own adl's. Lena does not want to reno making referrals as patient has already been declined by a couple of facilities and there aren't that many facilities to begin with. Lena also wanted to talk with her supervisor in charge to see if patient needs to be off the Morphine for a certain amount of time. ADRIENNE did talk with physician and picc line was discontinued. ADRIENNE did talk with SW Pharmacist Apprentice regarding the difficulty with placing patient. Plan: Current issue with psych placement is patient needs to be more mobile and able to do his own adl's. Vilma Miller MSW KIMBERLYN
[2022-11-28 16:34] VITALS: BP 152/86; PULSE 91; RESP 16; TEMP 36.7; O2SAT 98
--- NOTE | 2022-11-28 16:50 | CASEMGMT ---
ADRIENNE spoke with Lena from crisis and she will work on finding placement. Vilma Miller AIRFLIGHT ATTENDANTS SUPERVISOR KIMBERLYN
[2022-11-28 21:20] LABS: Vancomycin, Trough Level 5.7 ug/mL (5.0-15.0)
[2022-11-28 22:00] VITALS: BP 158/95; PULSE 91; RESP 16; TEMP 36.7; O2SAT 98
--- NOTE | 2022-11-28 22:02 | NURSING ---
Pt removed acewraps from legs states they were uncomfortable to wear tonight. Pt also voiced frustration with pain medication. Assured pt that as soon as the pain medication was available I would bring it in. Pt further states he wishes they would just let him go tonight.
[2022-11-29 03:38] VITALS: BP 119/74; PULSE 79; RESP 14; TEMP 36.7; O2SAT 100
[2022-11-29] MEDS: Acetaminophen 325 MG Tablet 650 MG PO ×3 (04:33→23:13)
[2022-11-29 06:00] VITALS: BMI 30.7
--- NOTE | 2022-11-29 07:48 | PCM.PN.HOSP ---
Reason for Visit Reason for Visit: Diagnoses Cellulitis of unspecified part of limb (11/20/22) Sunburn of second degree (11/20/22) Subjective Subjective Seen participating physical therapy. Apparently threatening to sign out AGAINST MEDICAL ADVICE Objective Data Objective Data Vital Signs: Vital Signs Temp Pulse Resp BP Pulse Ox O2 Del Method 98.1 F 79 14 119/74 100 Room Air 11/29/22 03:38 11/29/22 03:38 11/29/22 03:38 11/29/22 03:38 11/29/22 03:38 11/29/22 03:38 Oxygen Delivery Method Room Air Weight: 102.7 kg Body Mass Index (BMI) 30.7 Intake & Output: Intake and Output for Last 24 Hours 11/27/22 11/28/22 11/29/22 23:59 23:59 23:59 Intake Total 855 / 1095 1160 / 1460 600 / 600 Output Total 3450 / 3950 2300 / 2800 1300 / 1300 Balance -2595 / -2855 -1140 / -1340 -700 / -700 Lab / Micro Data Result Diagrams: 11/28/22 05:28 11/28/22 05:28 Labs: Laboratory Results - last 24 hr 11/28/22 20:30: Vancomycin Trough 5.7 Micro: Microbiology 11/20/22 17:48 Blood Culture (Wb) - Left Wrist Blood Culture - Preliminary 11/27/22 10:05 Nasal Secretion SARS-CoV-2 Antigen (Rapid) - Final 11/20/22 16:44 Blood Culture (Wb) - Right Wrist Blood Culture - Final No growth in 5 days. Physical Exam Narrative GENERAL: cooperative HEENT: Atraumatic; normocephalic EYES; Anicteric, Normal Conjunctiva NECK; supple, normal thyroid, RESPIRATORY: Diminished to auscultation CARDIOVASCULAR: Regular S1 S2, GI: soft, normoactive bowel sounds, : No Renal angle tenderness; EXTREMITIES: No edema, no clubbing, MUSCULOSKELETAL: no muscle wasting NEURO: Awake; no lateralizing signs. SKIN: Bilateral lower extremities erythematous and weeping with large slightly less tense blister on top of left foot, some sloughing on right PSYCH; Flat affect Assessment & Plan Assessment/Plan (1) Cellulitis of anterior lower leg: (2) Sunburn of second degree: PLAN: Plan Patient is a 62-year-old gentleman with history of learning disability admitted with sepsis secondary to bilateral lower extremity cellulitis 1. Sepsis secondary to bilateral lower extremity cellulitis ? Patient managed with broad-spectrum antibiotic therapy, cultures sent consult placed to ID ? 11/25/2022 patient wound cultures so far negative to date. Patient was seen in consultation by Dr. Brenner with ID's notes and recommendations reviewed ? 11/27/2022; patient is currently not on any antibiotic therapy. Morphine has been discontinued 2. Learning disability ? Supportive care Case management consulted to assist with disposition 3.Chronic spondylosis with sciatica -Patient is followed by Dr. Peters with spine surgery as outpatient 4. DVT prophylaxis ? SC Lovenox 5. Physical deconditioning - Requested for PT OT eval and child welfare social worker to assist with discharge planning - 11/26/2022 ; Patient seen, strength is improving. Plan for patient to be discharged to [facility] possibly in 1 to 2 days -11/27/2022 : Patient seen overall clinical condition continues to improve. Patient was able to participate in physical therapy with some ambulation. We will reach out to the crisis center for patient to be transferred to [facility] ?11/28/2022; patient is medically stable for transfer Time spent in the patient's overall evaluation,decision-making process, review of diagnostic data, adjustment of management, discussion with other providers, nursing nursing and ancillary staff involved in patient's care documentation, 35 Minutes Charges/Coding Visit Charges Inpatient E&M: 95770 Subs Hosp L2
[2022-11-29] MEDS: Enoxaparin 40 MG/0.4 ML Syringe SC (07:54)
[2022-11-29] MEDS: Pantoprazole Sodium 40 MG Tablet PO (07:54)
--- NOTE | 2022-11-29 09:33 | NURSING ---
Patient lying in bed. No signs of acute distress. Talking that he thinks he is going to go ahead and leave today. He doesn't see any reason to stay. Encouragement given to follow plan of care.
[2022-11-29 09:35] VITALS: BP 136/71; PULSE 83; RESP 18; TEMP 36.6; O2SAT 97
--- NOTE | 2022-11-29 11:09 | NURSING ---
[facility] called to say they reviewed the referral that was sent over to them and they are declining the referral at this time. CM notified.
--- NOTE | 2022-11-29 12:06 | CASEMGMT ---
Addendum entered by Shanelle Edwards 11/29/22 13:50: As per rn discharge, [facility] called and said that they are trying two additional places, [facility] and [facility], and these are the last two places for them to try. After that, they told RN if neither place takes pt it's in social work's hands. SW will continue to follow. YEIMI Bronson Original Note: Social Work SW called Taya with [facility] to let her know [facility] called here to say pt is denied. Taya was not aware. They will continue to work on referral. YEIMI Bronson
[2022-11-29 15:43] VITALS: BP 159/70; PULSE 88; RESP 18; TEMP 36.7; O2SAT 99
--- NOTE | 2022-11-29 17:50 | NURSING ---
Patient has stated multiple times to his primary nurse Cherry that he is planning to leave AMA today. Did notify Dr. Villa early this morning so that he was aware in case patient physically tried to leave AMA. This afternoon, patient had two visitors come in so this RN reached out to Dr. Villa to ask if patient were to try and leave AMA with his visitors, would we need to pink slip him? Dr. Villa requested that we called crisis and asked them for clarity. This RN then called Katerina with Crisis to see if patient would need a pink slip if he tried to leave AMA per request of Dr. Villa since we are trying to place him in a geriatric psych facility. After much discussion, per Katerina, he is not really a crisis case so ultimately it would be up to the physician if he wanted to pink slip him or not. This RN will notify Dr. Villa
--- NOTE | 2022-11-29 19:20 | NURSING ---
Pt assessment done and legs not wrapped at this time. Per pt he does not want them wrapped.
[2022-11-29 21:15] VITALS: BP 162/97; PULSE 94; RESP 18; TEMP 36.4; O2SAT 99
[2022-11-30 03:15] VITALS: BP 140/88; PULSE 88; RESP 16; TEMP 37.1; O2SAT 98
[2022-11-30 03:51] VITALS: BMI 30.2
[2022-11-30] MEDS: Pantoprazole Sodium 40 MG Tablet PO (08:06)
[2022-11-30] MEDS: Enoxaparin 40 MG/0.4 ML Syringe SC (08:06)
[2022-11-30 08:07] VITALS: BP 149/94; PULSE 89; RESP 18; TEMP 36.3; O2SAT 98
[2022-11-30] MEDS: Acetaminophen 325 MG Tablet 650 MG PO ×3 (08:11→20:43)
--- NOTE | 2022-11-30 08:40 | PN.HOSP_ITS ---
Reason for Visit Reason for Visit: Diagnoses Cellulitis of unspecified part of limb (11/20/22) Sunburn of second degree (11/20/22) Subjective Subjective Patient seen had threatened to sign out AGAINST MEDICAL ADVICE the day prior. He appears calm this morning. Awaiting transfer to an inpatient psych facility Objective Data Objective Data Vital Signs: Vital Signs Temp Pulse Resp BP Pulse Ox O2 Del Method 97.3 F L 89 18 149/94 H 98 Room Air 11/30/22 08:07 11/30/22 08:07 11/30/22 08:07 11/30/22 08:07 11/30/22 08:07 11/30/22 08:07 Oxygen Delivery Method Room Air Weight: 101.2 kg Body Mass Index (BMI) 30.2 Intake & Output: Intake and Output for Last 24 Hours 11/28/22 11/29/22 11/30/22 23:59 23:59 23:59 Intake Total 1160 / 1460 1480 / 1480 Output Total 2300 / 2800 1300 / 1300 Balance -1140 / -1340 180 / 180 Lab / Micro Data Result Diagrams: 11/28/22 05:28 11/28/22 05:28 Micro: Microbiology 11/20/22 17:48 Blood Culture (Wb) - Left Wrist Blood Culture - Preliminary 11/27/22 10:05 Nasal Secretion SARS-CoV-2 Antigen (Rapid) - Final 11/20/22 16:44 Blood Culture (Wb) - Right Wrist Blood Culture - Final No growth in 5 days. Physical Exam Narrative GENERAL: cooperative HEENT: Atraumatic; normocephalic EYES; Anicteric, Normal Conjunctiva NECK; supple, normal thyroid, RESPIRATORY: Diminished to auscultation CARDIOVASCULAR:? Regular S1 S2, GI:? soft, normoactive bowel sounds, : No Renal angle tenderness; EXTREMITIES:? No edema, no clubbing, MUSCULOSKELETAL:? no muscle wasting NEURO:? Awake;? no lateralizing signs. PSYCH; Flat? affect Assessment & Plan Assessment/Plan (1) Sunburn of second degree: PLAN: Plan Patient is a 62-year-old gentleman with history of learning disability admitted with sepsis secondary to bilateral lower extremity cellulitis 1.? Sepsis secondary to bilateral lower extremity cellulitis ? Patient managed with broad-spectrum antibiotic therapy, cultures sent consult placed to ID ? 11/25/2022 patient wound cultures so far negative to date.? Patient was seen in consultation by Dr. Brenner with ID's notes and recommendations reviewed ? 11/27/2022; patient is currently not on any antibiotic therapy.? Morphine has been discontinued 2.? Learning disability ? Supportive care Case management consulted to assist with disposition 3.Chronic spondylosis with sciatica -Patient is followed by Dr. Peters with spine surgery as outpatient 4.? DVT prophylaxis ? SC Lovenox 5.? Physical deconditioning - Requested for PT OT eval and social media sr strategy manager to assist with discharge planning - 11/26/2022 ; Patient seen, strength is improving.? Plan for patient to be discharged to [facility] possibly in 1 to 2 days -11/27/2022 : Patient seen overall clinical condition continues to improve.? Patient was able to participate in physical therapy with some ambulation.? We will reach out to the crisis center for patient to be transferred to [facility] ?11/28/2022; patient is medically stable for transfer ? 11/30/2022; patient had apparently tried to not to sign out the day prior he appears calm this morning awaiting transfer to long term facility Time spent in the patient's overall evaluation,decision-making process, review of diagnostic data, adjustment of management, discussion with other providers, nursing nursing and ancillary staff involved in patient's care documentation, 35 Minutes Charges/Coding Visit Charges Inpatient E&M: 52095 Subs Hosp L2
--- NOTE | 2022-11-30 14:32 | NURSING ---
crisis called patient was declined from all places due to needing assistance with personal care. States patient needs to be totally independent with adls and ambulation . manufacturing quality manager Lena gimenez
[2022-11-30 15:00] VITALS: BP 90/56; PULSE 65; RESP 18; TEMP 36.8; O2SAT 94
[2022-11-30 17:00] VITALS: BP 135/85; PULSE 61; RESP 18; TEMP 36.7; O2SAT 95
[2022-11-30 20:42] VITALS: BP 151/80; PULSE 94; RESP 18; TEMP 36.7; O2SAT 95
--- NOTE | 2022-11-30 22:45 | NURSING ---
Pt refusing dressing changes at this time. Attempted to educate pt on importance of keeping wounds clean and dry, but pt still refusing.
[2022-12-01 03:06] VITALS: BP 132/81; PULSE 87; RESP 18; TEMP 36.4; O2SAT 97
[2022-12-01] MEDS: Acetaminophen 325 MG Tablet 650 MG PO ×2 (04:53→11:09)
[2022-12-01 07:58] VITALS: BP 148/80; PULSE 78; RESP 16; TEMP 36.5; O2SAT 97
[2022-12-01] MEDS: Pantoprazole Sodium 40 MG Tablet PO (10:12)
[2022-12-01] MEDS: Enoxaparin 40 MG/0.4 ML Syringe SC (10:12)
--- NOTE | 2022-12-01 10:16 | WOUNDNOTE ---
wound photo: right lower leg
--- NOTE | 2022-12-01 10:17 | WOUNDNOTE ---
wound photo: right lower leg
--- NOTE | 2022-12-01 10:18 | WOUNDNOTE ---
wound photo: left lower leg
--- NOTE | 2022-12-01 10:19 | WOUNDNOTE ---
wound photo: left lower leg
--- NOTE | 2022-12-01 10:19 | CASEMGMT ---
ADRIENNE called [facility] and let them know patient is moving much better now. Patient is actually up ambulating the halls on his own with a walker. ADRIENNE also asked if they have a med list from when patient was discharged from [facility] in Jul. Lena from [facility] will be in to see patient and will bring the med list. Vilma SOFIA
--- NOTE | 2022-12-01 11:08 | CASEMGMT ---
Lena from [facility] is at [facility] to evaluate patient. SW sent updates to crisis per their request. Vilma Miller MSW KIMBERLYN
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
[2022-12-01 14:00] VITALS: BP 140/76; PULSE 100; RESP 16; TEMP 36.7; O2SAT 99
--- NOTE | 2022-12-01 14:58 | CASEMGMT ---
Physician spoke with patient as patient is at the nurses station desk stating he is leaving. Physician had a lengthy conversation with patient. Physician was able to verify patient does have an appointment with his psychiatrist tomorrow at 3p. Physician told patient he will discharge him to his appointment tomorrow. Patient then agreed to stay. Patient did refuse to answer the suicide risk assessment questions for the crisis counselor today. Patient told crisis counselor if he answered she would call the police. It was felt patient should have a sitter. However, patient does not want a sitter and physician spoke with patient again. Physician does not feel patient needs a sitter as he does not feel the patient is suicidal or homicidal. Physician will document this information. Vilma SOFIA
[2022-12-01] MEDS: Gabapentin 800 MG Tablet PO (15:04)
--- NOTE | 2022-12-01 15:24 | NURSING ---
[facility] called with a bed. Informed patient. Patient states I'm not going. Dr. Morin notified of bed availability at [facility] and patient refusing to go. Plan remains to dc to psychiatric appointment tomorrow.
--- NOTE | 2022-12-01 15:37 | CASEMGMT ---
[facility] has a bed for patient and they require a pink slip. Physician was notified and he is not going to do a pink slip. Physician is agreeable to talk with can intake worker regarding her assessment of patient. ADRIENNE spoke with can intake worker Lena and she agreed to talk with physician. ADRIENNE gave Lena physician's phone number. Vilma Miller CHRONOGRAPH OPERATOR KIMBERLYN
--- NOTE | 2022-12-01 16:33 | NURSING ---
Crisis called and notified this nurse that they spoke directly with Dr. Morin who does not plan on transferring patient to [facility] at this time. Crisis states that their recommendations is still for in patient psychiatric care.
--- NOTE | 2022-12-01 16:35 | NURSING ---
Notified [facility] that patient will not be transferred unless something in the patient's condition changes. [facility] will keep the patient's information and this facility can update [facility] in the morning if the need arises.
[2022-12-01 18:34] VITALS: BP 173/92; PULSE 97; RESP 16; TEMP 36.7; O2SAT 99
--- NOTE | 2022-12-01 20:07 | NURSING ---
pt refusing tele at this time
[2022-12-01] MEDS: Ibuprofen 200 MG Tablet PO (20:28)
[2022-12-01] MEDS: Mirtazapine 15 MG Tablet PO (22:01)
[2022-12-01 22:02] VITALS: BP 117/94; PULSE 94; RESP 18; TEMP 36.6; O2SAT 97
[2022-12-02 03:49] VITALS: BMI 29.7
[2022-12-02 04:26] VITALS: BP 131/97; PULSE 83; RESP 18; TEMP 36.9; O2SAT 97
[2022-12-02] MEDS: Ibuprofen 200 MG Tablet PO (06:06)
[2022-12-02 06:10] LABS: Absolute Lymphocyte Count 2.64 X10^3/uL (0.83-4.51); Absolute Neutrophil Count 5.4 X10^3/uL (2.0-7.7); Basophil# 0.11 X10^3/uL; Basophil% 1.2 % (0-1); Eosinophil# 0.08 X10^3/uL; Eosinophils% 0.9 % (0-5); Hematocrit 41.1 % (40-54); Hemoglobin 13.6 g/dL (13.0-16.5); Lymphocyte # 2.64 X10^3/ul (0.83-4.51); Lymphocyte % 29.4 % (19-41); Mean Corp Hgb Conc 33.1 g/dL (32-36); Mean Corpuscular Hgb 33.6 pg (27.0-32.0); Mean Corpuscular Volume 101.5 fL (80-94); Mean Platelet Vol. 9.1 fl (6.2-12.0); Monocyte# 0.71 X10^3/uL; Monocyte% 7.9 % (0-10); NRBC Flagged by Analyzer 0 % (0-5); Neutrophil % 60.2 % (47-70); Platelet Count 424 K/mm3 (150-450); RBC Distribution Width CV 13.2 % (11.6-14.6); Red Blood Count 4.05 M/mm3 (4.6-6.2)
[2022-12-02] MEDS: Gabapentin 800 MG Tablet PO ×2 (06:40→11:30)
[2022-12-02 06:44] LABS: Anion Gap 5 (5-15); BUN 15 mg/dL (7-18); BUN/Creat Ratio 17.3 RATIO (10-20); Calcium,Total 9.1 mg/dL (8.5-10.1); Chloride 111 mmol/L (98-107); Creatinine, Serum 0.87 mg/dL (0.70-1.30); EST Glomerular Filtration Rate 94 mL/min (>60); Est Glom Filt Rate - Afr Amer 114 mL/min (>60); Estimated Creatinine Clearance 96.63 ml/min; Glucose 81 mg/dL (74-106); Potassium 4.2 mmol/L (3.5-5.1); Sodium Level 140 mmol/L (136-145)
[2022-12-02 09:24] VITALS: BP 122/78; PULSE 81; RESP 15; TEMP 36.6; O2SAT 98
[2022-12-02] MEDS: Pantoprazole Sodium 40 MG Tablet PO (09:28)
[2022-12-02] MEDS: Acetaminophen 325 MG Tablet 650 MG PO (09:28)
--- NOTE | 2022-12-02 09:30 | CASEMGMT ---
Social Work called [facility] and spoke with Katerina in crisis. Katerina said patient's appt with the Psychiatrist has been canceled due to a family emergency. Katerina rescheduled the appt for December 17 at 2:30 which will be a phone appointment. ADRIENNE let Katerina know that physician is not willing to sign the pink slip. ADRIENNE called [facility] and spoke with Valdo. Valdo said there is nothing they are able to do for patient as he is not willing to work with them. Valdo did tell SW patient has a medical case manager, Daniel at [facility]. Spoke with physician during rounds this am. ADRIENNE made physician aware of the appt cancelation and rescheduled appt. Physician plans on discharging the patient home today. ADRIENNE called patient's sister Zayda to let her know patient will be discharged home today. Zayda said patient can return to her garage and she can pickle processor patient when ready. ADRIENNE called Katerina at [facility] in crisis and let her know patient will be discharged home today. ADRIENNE let Katerina know ADRIENNE will give patient resources on housing and food. Katerina confirmed patient has a medical case manager Daniel Montoya. Katerina said Daniel has already provided patient with those resources and patient is on a list for housing. ADRIENNE updated RN. ADRIENNE will also update patient. Vilma SOFIA
--- NOTE | 2022-12-02 10:23 | CASEMGMT ---
SW met with patient. Introduced self and role at [facility]. Patient asked SW about when he can leave the hospital. SW told patient the physician has to see him and put his discharge information in the computer. SW explained to patient about his psychiatrist appt being canceled for today and rescheduled for December 17 phone appt at 230. SW also provided patient with resources for food and housing. Patient is anxious to leave the hospital as he has things to do. Plan: d/c home. Psychiatrist appt December 17 at 230p. Daniel Montoya is patient's case consultant at [facility]. Adult Protective Services is unable to work with patient as patient is not willing to work with them. Vilma Miller WELDING TESTER KIMBERLYN
--- NOTE | 2022-12-02 11:19 | PCM.DC ---
Discharge Instructions Diet Discharge Diet: No restrictions Activity Discharge Activity: Return to Normal Activity Dressing / Incision Call your doctor if you observe: Fever of 101 or Higher, Shortness of breath, Dizziness, Fainting spells, Swelling in the ankles, Chest pain and Increased palpitations (irregular heartbeat) Follow Up Care Test Results: Test results from this visit will be discussed in further detail at your follow-up appointment, if applicable. Discharge Plan Admission Admit Date/Time: 11/20/22 18:11 Attending Provider: Marcel Morin Primary Care Provider: Brea Castle Primary Consulting Providers: Juan Ledezma ; Elmer Keita ; Jaime Brenner ; Erika Mathews ; Marlon Villa Discharge Orders/Prescriptions Prescriptions: New pantoprazole 40 mg Tablet,Delayed Release (Dr/Ec) 40 mg PO DAILY 30 Days Qty: 30 0RF mirtazapine 15 mg Tablet 15 mg PO QHS 30 Days Qty: 30 0RF Continued ibuprofen 200 mg Tablet 200 mg PO Q6H PRN (Reason: Pain) Referrals / Follow Up: Care Physician,No Primary [Primary Care Provider] - Julia Jiménez NP, CODING QUALITY COORDINATOR-C [Non-Staff] - (Appointment December 17, 2022 at 2:30p phone appointment) Disposition Disposition (needs filled in before D/C Order can be placed): Home, Self Care
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
== END 2022-12-02 12:31 | disposition home or self-care (01) | DRG 872 ==
LOC: ED 18:25 → PCU 18:33
PROVIDERS: Internal Medicine; Internal Medicine Infectious Disease; Nurse Practitioner; Admitting Provider Internal Medicine; Emergency Provider Emergency Medicine; Visit Provider Family Medicine
DX: A41.9 Sepsis, unspecified organism (principal); E87.20 Acidosis, unspecified; F20.0 Paranoid schizophrenia; L03.115 Cellulitis of right lower limb; L03.116 Cellulitis of left lower limb; F17.210 Nicotine dependence, cigarettes, uncomplicated; B85.3 Phthiriasis; F31.9 Bipolar disorder, unspecified; L55.1 Sunburn of second degree; M54.41 Lumbago with sciatica, right side; M54.42 Lumbago with sciatica, left side; M47.816 Spondylosis without myelopathy or radiculopathy, lumbar region; G89.29 Other chronic pain; F81.9 Developmental disorder of scholastic skills, unspecified; R55 Syncope and collapse; Z79.899 Other long term (current) drug therapy; Z91.51 Personal history of suicidal behavior
CPT/HCPCS: 36415; 36569; 80048; 80053; 80074; 80076; 80202; 80307; 81001; 82550; 83605; 83735; 84100; 85025; 85610; 85652; 85730; 86140; 86160; 86703; 87040; 87426; 93005; 93922; 93970; 97110; 97116; 97162; 97166; 97530; 97535; 99283; 99285; J7030; J7040; J7050; A4216; J0295; J2405

== ENCOUNTER 2023-07-15 13:12 | Emergency (ER) | payer MEDICARE, MEDICAID, SELFPAY ==
[2023-07-15 13:14] VITALS: BP 152/92; PULSE 99; RESP 18; TEMP 36.1; O2SAT 98; BMI 31.1
[2023-07-15 14:01] LABS: Absolute Lymphocyte Count 2.23 X10^3/uL (0.83-4.51); Absolute Neutrophil Count 4.1 X10^3/uL (2.0-7.7); Basophil# 0.03 X10^3/uL; Basophil% 0.4 % (0-1); Eosinophil# 0.09 X10^3/uL; Eosinophils% 1.3 % (0-5); Hematocrit 43.4 % (40-54); Hemoglobin 14.9 g/dL (13.0-16.5); Lymphocyte # 2.23 X10^3/ul (0.83-4.51); Lymphocyte % 31.8 % (19-41); Mean Corp Hgb Conc 34.3 g/dL (32-36); Mean Corpuscular Hgb 34.1 pg (27.0-32.0); Mean Corpuscular Volume 99.3 fL (80-94); Mean Platelet Vol. 9.5 fl (6.2-12.0); Monocyte# 0.51 X10^3/uL; Monocyte% 7.3 % (0-10); NRBC Flagged by Analyzer 0 % (0-5); Neutrophil # 4.14 X10^3/uL (2.7-7.7); Neutrophil % 58.9 % (47-70); Platelet Count 221 K/mm3 (150-450); RBC Distribution Width CV 11.9 % (11.6-14.6); RBC Distribution Width SD 43.8 fl (35.1-43.9); Red Blood Count 4.37 M/mm3 (4.6-6.2)
[2023-07-15 14:14] LABS: Anion Gap 4 (5-15); BUN 9 mg/dL (7-18); BUN/Creat Ratio 9.9 RATIO (10-20); Calcium,Total 8.8 mg/dL (8.5-10.1); Chloride 111 mmol/L (98-107); Creatinine, Serum 0.91 mg/dL (0.70-1.30); EST Glomerular Filtration Rate 90 mL/min (>60); Est Glom Filt Rate - Afr Amer 109 mL/min (>60); Estimated Creatinine Clearance 103.72 ml/min; Glucose 108 mg/dL (74-106); Potassium 3.7 mmol/L (3.5-5.1); Sodium Level 142 mmol/L (136-145)
[2023-07-15 14:48] LABS: Alcohol, Blood (Medical)-Serum < 3.0 mg/dL
--- NOTE | 2023-07-15 15:07 | EX.ED.VIS.PS ---
HPI HPI - Psych History of Present Illness Chief Complaint: Mental Health Detail of Chief Complaint: Needs medical clearance for mental health admission. Informant: patient Onset/Context/Timing Onset: Days Context: Gradual Onset Timing: Continuous Current Severity: Mild Maximum Severity: Mild Associated Symptoms Associated Symptoms - Psych: Positive for Paranoia Specific plan (suicidal thought): Not suicidal. Narrative Narrative: 63-year-old male history of paranoid schizophrenia. Was seen today for medical clearance to be admitted to [facility] for psychiatric care. He denies being suicidal or homicidal. No recent admissions. His last mental health admission was about a year ago. He denies any recent illness. Prior similar symptoms: Yes Recent Illness/Hospitalization: No PFSH PFSH Medical History (Updated 07/15/23 @ 15:[address] Damaso Donovan MD) Chronic low back pain with bilateral sciatica Current smoker Depression History of attempted suicide Mental retardation Neuropathy Obesity (BMI 30-39.9) OD (overdose of drug) Speech impediment Home Medications ibuprofen 200 mg tablet 200 mg PO Q6H PRN Pain 11/20/22 [History Last Taken Unknown] mirtazapine 15 mg tablet 15 mg PO QHS 30 days #30 tabs 12/02/22 [Rx Last Taken Unknown] pantoprazole 40 mg tablet,delayed release 40 mg PO DAILY 30 days #30 tabs 12/02/22 [Rx Last Taken Unknown] Allergy/AdvReac Type Severity Reaction Status Date / Time No Known Allergies Allergy Verified 07/15/23 13:14 Family History Mother Colon cancer Surgical History History of melanoma excision Social History Smoking Status: Current every day smoker tobacco type: cigarettes ROS ROS ED ROS Narrative Denies recent illness. Review of Systems ROS Unobtainable: Denies due to encephalopathy Constitutional Constitutional ED: Denies chills or fever(s) Eyes Eyes: Denies blurry vision ENT ENT ED: Denies ear pain Cardiovascular Cardiovascular: Denies chest pain Respiratory/Chest Respiratory/Chest: Denies cough or dyspnea Gastrointestinal Gastrointestinal: Denies abdominal pain Genitourinary Genitourinary ED: Denies dysuria or hematuria Musculoskeletal Musculoskeletal: Denies arthralgias Integumentary Denies abscess Neurologic Neurologic: Denies headache(s) Psychiatric Psychiatric: Denies anxiety Endocrine Endocrinology: Denies polydipsia Hematologic/Lymphatic Hematologic/Lymphatic: Denies easy bleeding, easy bruising or lymphadenopathy Allergic/Immunologic Allergic/Immunologic ED: Denies mouth swelling, tongue swelling or urticaria EXAM Physical Exam Narrative Exam Narrative: Well-appearing 63-year-old male vital signs stable afebrile. HEENT exam unremarkable. Neck nontender no lymphadenopathy. Lungs clear to auscultation bilaterally. Heart regular rhythm no murmur rate about 95. Chest wall and ribs nontender. Abdomen soft nontender. Moving all 4 extremities. Calves are nontender without edema or cords. Neurologically is awake and alert. Answering questions following commands. No focal motor deficits. He does have a speech impediment which is his baseline. Const Vital Signs: 07/15/23 13:14 Temperature 96.9 F L Temperature Source Temporal Pulse Rate 99 Respiratory Rate 18 Blood Pressure 152/92 H Blood Pressure Mean 112 Pulse Ox 98 Oxygen Delivery Method Room Air Positive well nourished and well developed; Negative for cachectic, contractures or unkempt General Appearance ED: well developed and NAD; Negative for unkempt, cachectic, contractures or pallor Nutritional Appearance: Negative for cachectic HEENT Reports moist mucous membranes normocephalic and atraumatic; Negative for trauma or tenderness Eyes PERRL and EOMs intact bilaterally General Eye ED: Negative for pale conjunctiva, scleral icterus or other Neck no lymphadenopathy, supple and no JVD General: Negative for tenderness Resp normal respiratory effort and clear to auscultation bilaterally Effort and Inspection: Negative for retractions Auscultation: Negative for rales, rhonchi or wheezes Cardio S1 normal heart sound, S2 normal heart sound and no murmurs Palpation: Negative for other Rate: regular rate Rhythm: regular rhythm GI non-tender, non-distended and no masses Inspection: Negative for abdominal distention Auscultation: normoactive bowel sounds Palpation: soft; Negative for tender or guarding Back/Spine no CVA tenderness General Back: Negative for CVA tenderness Cervical Spine: Negative for cervical spine tenderness Thoracic Spine / Upper Back: Negative for thoracic spinal tenderness Lumbar Spine / Lower Back: Negative for lumbar spinal tenderness Coccyx: Negative for other Extremity normal to inspection General Extremety ED: Negative for edema or tenderness General Extremity: Negative for edema Neuro oriented x3 and CN's II-XII intact bilaterally Sensorium / Orientation: alert, oriented to person and oriented to place; Negative for orientation impaired, confused, lethargic or stuporous Motor Exam: strength 5/5 throughout Psych mental status grossly normal, thought process normal, cooperative, affect normal, speech normal, activity/motor behavior normal, denies hallucinations, denies homicidal ideation and denies suicidal ideation Appearance: grossly normal; Negative for unkempt Attitude: calm, engaged, No paranoid, No withdrawn, No bizarre, No uncooperative, No evasive, No guarded, No belligerent and No agitated Activity / Motor Behavior: appropriate eye contact Speech: slurred and other Based on baseline underlying speech impediment. Thought Process: normal thought process Thought Content: normal thought content Attention / Concentration: attention grossly intact Memory / Cognition: memory grossly intact Insight: insight good Judgement: judgement good Skin General Skin Exam: Negative for jaundice or pallor Lesions: no lesions Trauma: Negative for abrasion Wounds: Negative for amputation MDM MDM MDM Narrative Medical decision making narrative: 63-year-old male reportedly with paranoid schizophrenia who is going to be sent to [facility] for mental health care. His exam is benign. He is medically cleared. Awaiting labs. Repeat exam patient doing well at 4:23 PM. He is medically cleared And will be taken by private vehicle to [facility]. History & Record Review Discussion w/independent historian: Patient Lab Data Attestation: I reviewed the patient's lab results. Lab results narrative: CBC shows a white count of 7. H&H 14 and 43. Platelets 221. Electrolytes show a gap of 4. Normal BUN and creatinine. Glucose 108. Alcohol level is negative. COVID-negative. Tox screen is positive for amphetamines, MDMA and cannabis. Labs: Laboratory Results - last 24 hr 07/15/23 07/15/23 13:51 15:55 WBC 7.0 RBC 4.37 L Hgb 14.9 Hct 43.4 MCV 99.3 H MCH 34.1 H MCHC 34.3 RDW Std Deviation 43.8 RDW Coeff of Dacia 11.9 Plt Count 221 MPV 9.5 Immature Gran % (Auto) 0.300 Neut % (Auto) 58.9 Lymph % (Auto) 31.8 [place] % (Auto) 7.3 Eos % (Auto) 1.3 Baso % (Auto) 0.4 Absolute Neuts (auto) 4.1 Absolute Lymphs (auto) 2.23 Nucleated RBC % 0 Sodium 142 Potassium 3.7 Chloride 111 H Carbon Dioxide 27.0 Anion Gap 4 L BUN 9 Creatinine 0.91 Estim Creat Clear Calc 103.72 Est GFR (MDRD) Af Amer 109 Est GFR (MDRD) Non-Af 90 BUN/Creatinine Ratio 9.9 L Glucose 108 H Calcium 8.8 Urine Opiates Screen NEGATIVE Urine Methadone Screen NEGATIVE Ur Barbiturates Screen NEGATIVE Ur Phencyclidine Scrn NEGATIVE Ur Amphetamines Screen POSITIVE H MDMA (Ecstasy) Screen POSITIVE H U Benzodiazepines Scrn NEGATIVE Urine Cocaine Screen NEGATIVE U Cannabinoids Screen POSITIVE H Ur Drug Screen Comment Ethyl Alcohol < 3.0 Discharge Plan Triage Chief Complaint: Mental Health ED Provider: Damaso Donovan Dx/Rx/DC Orders Clinical Impression: Schizophrenia, paranoid Prescriptions: No Action ibuprofen 200 mg Tablet 200 mg PO Q6H PRN (Reason: Pain) pantoprazole 40 mg Tablet,Delayed Release (Dr/Ec) 40 mg PO DAILY 30 Days Qty: 30 0RF mirtazapine 15 mg Tablet 15 mg PO QHS 30 Days Qty: 30 0RF Primary Care Provider: Care Physician,No Primary Referrals: Care Physician,No Primary [Primary Care Provider] - Activity Restrictions/Additional Instructions: Go directly to [facility]. You are medically cleared for psychiatric admission. Disposition Disposition: Psychiatric Hospital or Unit
[2023-07-15 16:13] VITALS: RESP 18
[2023-07-15 16:18] LABS: Amphetamine Urine VISTA POSITIVE (<1000 ng/mL); Barbiturate Urine VISTA NEGATIVE (< 200 ng/mL); Benzodiazepine Urine VISTA NEGATIVE (< 200 ng/mL); Cocaine Urine VISTA NEGATIVE (< 300 ng/mL); Ecstacy Urine VISTA POSITIVE (< 500 ng/mL); Methadone Urine VISTA NEGATIVE (< 300 ng/mL); PCP Urine VISTA NEGATIVE (< 25 ng/mL); THC Urine VISTA POSITIVE (< 50 ng/mL); Vista UDS pH Range 5
--- NOTE | 2023-07-15 16:32 | NURSING ---
FAXED CHART TO [facility]
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
[2023-07-15 17:03] VITALS: RESP 18
[2023-07-15 17:16] LABS: AST(SGOT) 27 U/L (15-37); Alanine Aminotransfer ALT/SGPT 27 U/L (16-61); Albumin, Serum 3.5 g/dL (3.2-5.0); Alkaline Phosphatase 141 U/L (45-117); Bilirubin, Direct 0.12 mg/dL (0.00-0.30); Protein, Total 7.5 g/dL (6.4-8.2)
== END 2023-07-15 17:05 ==
LOC: ED 15:37
PROVIDERS: Emergency Provider Emergency Medicine; Visit Provider Emergency Medicine
DX: F20.0 Paranoid schizophrenia (principal); F17.210 Nicotine dependence, cigarettes, uncomplicated
CPT/HCPCS: 80048; 80076; 80307; 80320; 85025; 87635; 93005; 99282; G0480

== ENCOUNTER 2023-12-22 01:23 | Emergency (ER) | payer MEDICARE, MEDICAID, SELFPAY ==
[2023-12-22 01:23] VITALS: BP 123/85; PULSE 92; RESP 18; O2SAT 98
[2023-12-22 01:26] VITALS: BP 123/85; PULSE 90; RESP 13; TEMP 36.5; O2SAT 96; BMI 34.6
[2023-12-22 01:35] VITALS: BP 145/130; PULSE 101; RESP 16; O2SAT 99
[2023-12-22] MEDS: Diphth,Pertuss(Acell),Tet Vac 0.5 ML Vial IM (01:40)
[2023-12-22] MEDS: fentaNYL 100 MCG/2 ML Ampul IV (01:40)
[2023-12-22] MEDS: Ondansetron 4 MG/2 ML Vial IV (01:40)
[2023-12-22] MEDS: Cefazolin 2 GM in 0.9% Normal Saline (100mL Bag) 100 ML IV (01:40)
[2023-12-22 01:55] VITALS: BP 163/114; PULSE 104; RESP 16; O2SAT 98
[2023-12-22] MEDS: TRANEXAMIC ACID 1,000 MG in 0.9% Normal Saline (100mL Bag) 100 ML 440 MG IV (02:02)
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
[2023-12-22 02:14] VITALS: BP 138/92; PULSE 102; RESP 16; TEMP 36.8; O2SAT 99
--- NOTE | 2023-12-22 02:28 | ED.RN ---
REPORT CALLED TO [facility] NURSE SATYA, NO FURTHER QUESTIONS AT THIS TIME.
[2023-12-22 02:33] LABS: Bedside Glucose 163 mg/dL (74-106)
[2023-12-22 02:34] LABS: Absolute Lymphocyte Count 3.45 X10^3/uL (0.83-4.51); Absolute Neutrophil Count 6.8 X10^3/uL (2.0-7.7); Basophil# 0.04 X10^3/uL; Basophil% 0.4 % (0-1); Eosinophil# 0.08 X10^3/uL; Eosinophils% 0.7 % (0-5); Hematocrit 37.1 % (40-54); Hemoglobin 12.4 g/dL (13.0-16.5); Lymphocyte # 3.45 X10^3/ul (0.83-4.51); Lymphocyte % 31.1 % (19-41); Mean Corp Hgb Conc 33.4 g/dL (32-36); Mean Corpuscular Hgb 33.3 pg (27.0-32.0); Mean Corpuscular Volume 99.7 fL (80-94); Mean Platelet Vol. 10.7 fl (6.2-12.0); Monocyte# 0.67 X10^3/uL; NRBC Flagged by Analyzer 0 % (0-5); Neutrophil # 6.79 X10^3/uL (2.7-7.7); Neutrophil % 61.3 % (47-70); Platelet Count 230 K/mm3 (150-450); RBC Distribution Width CV 12.2 % (11.6-14.6); RBC Distribution Width SD 44.5 fl (35.1-43.9); Red Blood Count 3.72 M/mm3 (4.6-6.2); White Blood Count 11.1 K/mm3 (4.4-11.0)
[2023-12-22 02:42] LABS: Alcohol, Blood (Medical)-Serum < 3.0 mg/dL
[2023-12-22 02:44] LABS: Anion Gap 8 (5-15); BUN 21 mg/dL (7-18); BUN/Creat Ratio 15.6 RATIO (10-20); Calcium,Total 8.4 mg/dL (8.5-10.1); Chloride 110 mmol/L (98-107); Creatinine, Serum 1.35 mg/dL (0.70-1.30); EST Glomerular Filtration Rate 57 mL/min (>60); Est Glom Filt Rate - Afr Amer 69 mL/min (>60); Estimated Creatinine Clearance 73.58 ml/min; Glucose 134 mg/dL (74-106); Potassium 3.5 mmol/L (3.5-5.1); Sodium Level 141 mmol/L (136-145)
[2023-12-22 03:22] LABS: International Normalized Ratio 1.3
[2023-12-22 03:23] LABS: Partial Thromboplast Time 29.2 Seconds (24.1-36.2)
== END 2023-12-22 02:31 | disposition short-term general hospital (02) ==
PROVIDERS: Emergency Provider Emergency Medicine; Visit Provider Emergency Medicine
DX: S32.9XXA Fracture of unspecified parts of lumbosacral spine and pelvis, initial encounter for closed fracture (principal); F20.9 Schizophrenia, unspecified; F31.9 Bipolar disorder, unspecified; F17.210 Nicotine dependence, cigarettes, uncomplicated; S82.209A Unspecified fracture of shaft of unspecified tibia, initial encounter for closed fracture; S82.409A Unspecified fracture of shaft of unspecified fibula, initial encounter for closed fracture; Z23 Encounter for immunization; V13.4XXA Pedal cycle driver injured in collision with car, pick-up truck or van in traffic accident, initial encounter
CPT/HCPCS: 80048; 82077; 82962; 85025; 85610; 85730; 86850; 86900; 86901; 86920; 86922; 90471; 90715; 96365; 96367; 96375; 99285; J7030; P9016; A4216; J2405

== ENCOUNTER 2024-01-07 09:27 | Emergency (ER) | payer MEDICARE, MEDICAID, SELFPAY ==
[2024-01-07 09:29] VITALS: BP 143/72; PULSE 92; RESP 20; TEMP 36.7; O2SAT 96; BMI 34.9
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
[2024-01-07 11:27] VITALS: BP 112/74; PULSE 95; RESP 16; O2SAT 95
[2024-01-07] MEDS: oxyCODONE 5 MG Tablet 10 MG PO (11:52)
[2024-01-07 13:00] VITALS: BP 141/60; PULSE 101; RESP 16; O2SAT 98
[2024-01-07 15:00] VITALS: BP 146/61; PULSE 98; RESP 16; O2SAT 98
[2024-01-07] MEDS: HYDROmorphone 1 MG/ML Syringe 2 MG IM (15:22)
[2024-01-07 17:00] VITALS: BP 138/68; PULSE 91; RESP 16; O2SAT 98
[2024-01-07 18:47] VITALS: BP 155/71; PULSE 93; RESP 16; TEMP 36.2; O2SAT 98
== END 2024-01-07 18:48 | disposition skilled nursing facility (03) ==
PROVIDERS: Emergency Provider Emergency Medicine; Visit Provider Emergency Medicine
DX: Z51.89 Encounter for other specified aftercare (principal); F20.9 Schizophrenia, unspecified; G89.18 Other acute postprocedural pain; F17.210 Nicotine dependence, cigarettes, uncomplicated
CPT/HCPCS: 96372; 99282

== ENCOUNTER 2024-03-12 12:02 | Emergency (ER) | payer MEDICARE, MEDICAID, SELFPAY ==
[2024-03-12 12:04] VITALS: BP 135/73; PULSE 110; RESP 19; TEMP 36.7; O2SAT 98; BMI 73.8
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
[2024-03-12 14:03] VITALS: BP 138/76; PULSE 90; O2SAT 96
[2024-03-12 14:46] VITALS: BP 138/76; PULSE 90; RESP 17; TEMP 36.6; O2SAT 96
== END 2024-03-12 15:55 | disposition home or self-care (01) ==
PROVIDERS: Emergency Provider Emergency Medicine; PCP Family Medicine; Visit Provider Emergency Medicine
DX: R41.82 Altered mental status, unspecified (principal); F20.9 Schizophrenia, unspecified; F31.9 Bipolar disorder, unspecified; F17.210 Nicotine dependence, cigarettes, uncomplicated
CPT/HCPCS: 99282

== ENCOUNTER 2024-04-17 16:05 | Emergency (ER) | payer MEDICARE, SELFPAY ==
[2024-04-17 16:06] VITALS: BP 168/102; PULSE 98; RESP 18; TEMP 36.7; O2SAT 97; BMI 17.2
--- NOTE | 2024-04-17 16:14 | EDS_ITS ---
HPI History of Present Illness Chief Complaint: Other, Pain/Inj PFSH PFSH Medical History Shortness of breath Bilateral lower extremity edema Cellulitis of great toe of right foot Schizophrenia Manic depression Bipolar 1 disorder Neuropathy History of attempted suicide Depression Current smoker Speech impediment Mental retardation Obesity (BMI 30-39.9) Chronic low back pain with bilateral sciatica OD (overdose of drug) Home Medications ?Medication ?Instructions ?Recorded ?Last Taken ?Type ibuprofen 200 mg tablet 200 mg PO Q6H PRN Pain 11/20/22 Unknown History mirtazapine 15 mg tablet 15 mg PO QHS 30 days #30 tabs 12/02/22 Unknown Rx pantoprazole 40 mg tablet,delayed 40 mg PO DAILY 30 days #30 tabs 12/02/22 Unknown Rx release amoxicillin 875 mg-potassium 1 tab PO BID #20 tabs 09/23/23 Unknown Rx clavulanate 125 mg tablet gabapentin 800 mg tablet 800 mg PO TID 09/23/23 Unknown History permethrin 5 % topical cream applic topical 09/23/23 Unknown History Allergy/AdvReac Type Severity Reaction Status Date / Time No Known Allergies Allergy Verified 04/17/24 16:06 Family History Mother Colon cancer Surgical History History of excision of pilonidal cyst History of appendectomy History of melanoma excision Social History (Updated 03/12/24 @ 12:08 by Valentina Ren) housing: jail Smoking Status: Current every day smoker tobacco type: cigarettes EXAM Physical Exam Const Vital Signs: 04/17/24 16:06 04/17/24 16:20 Temperature 98.0 F Temperature Source Oral Pulse Rate 98 Respiratory Rate 18 Respiratory Effort Normal Respiratory Pattern Normal Blood Pressure 168/102 H Blood Pressure Mean 124 Pulse Ox 97 Oxygen Delivery Method Room Air MDM MDM MDM Narrative Medical decision making narrative: HISTORY OF PRESENT ILLNESS: 64-year-old male presents with concern for PICC line malfunction. States his PICC line was pulled out just prior to arrival. Denies any pain or other symptoms. REVIEW OF SYSTEMS: Pertinent positives: PICC line malfunction Pertinent negatives: None PHYSICAL EXAM: Nursing triage notes reviewed, Vital signs reviewed Constitutional: please see mdm Lungs: Clear to auscultation, No wheezing or rales. No increased work of breathing, no conversational dyspnea, no accessory muscle use, no nasal flaring. No respiratory distress noted Heart: Regular rate and rhythm, No murmurs, No rubs and No gallops, 2+ distal pulses (radial, femoral, posterior tibial) in all extremities Extremities: No edema, PICC line pulled out Skin: No rash or lesions noted, no fluctuation erythema or crepitus noted PICC line site MEDICAL DECISION MAKING: Chief Complaint: PICC line malfunction MDM Narrative: Patient was initially hemodynamically stable, afebrile and nontoxic-appearing. Exam without signs of infection. PICC line was removed without issue. Site was dressed. Given PICC line was partially removed fall risk infection was high, risk about function was high. We opted to place another peripheral IV for a temporary solution. The patient was implored to communicate with nursing staff that he needed to schedule PICC line reinsertion. The patient and/or family, caregivers express understanding. The patient and/or family, caregivers agrees with the plan. Shared decision making: I will have a discussion with the patient and or visitors regarding risk/benefits of further testing or admission. They will be made aware of of the risk/benefits inherent in this decision they will be given the opportunity to voice understanding. Total critical care time today provided was at least 0 minutes. This excludes separately billable procedures. Critical care time (if documented) is secondary to the patient having high probability of clinically significant/life thr eatening deterioration in the patient's condition which required my urgent intervention. Impression: 1. PICC line malfunction 2. Peripheral IV insertion Dispo: discharge This note was generated with [employer] dictation software. It may contain incorrect words, spelling, and punctuation that were not noted in review of the chart prior to signing. Discharge Plan Triage Chief Complaint: Other, Pain/Inj ED Provider: Endy Garcia Dx/Rx/DC Orders Prescriptions: No Action permethrin 5 % cream topical gabapentin 800 mg tablet 800 mg PO TID amoxicillin-pot clavulanate 875-125 mg tablet 1 tab PO BID Qty: 20 0RF ibuprofen 200 mg Tablet 200 mg PO Q6H PRN (Reason: Pain) pantoprazole 40 mg Tablet,Delayed Release (Dr/Ec) 40 mg PO DAILY 30 Days Qty: 30 0RF mirtazapine 15 mg Tablet 15 mg PO QHS 30 Days Qty: 30 0RF Primary Care Provider: Perry Ca Referrals: Perry Ca MD [Primary Care Provider] - Print Language: Nepali
== END 2024-04-17 17:40 | disposition home or self-care (01) ==
PROVIDERS: Emergency Provider Emergency Medicine; PCP Family Medicine; Visit Provider Emergency Medicine
DX: T82.594A Other mechanical complication of infusion catheter, initial encounter (principal); F31.9 Bipolar disorder, unspecified; F17.210 Nicotine dependence, cigarettes, uncomplicated; X58.XXXA Exposure to other specified factors, initial encounter
CPT/HCPCS: 99285

== ENCOUNTER → 2024-04-20 | Outpatient (CLI) | payer MEDICARE, SELFPAY ==
[2024-04-20 09:42] VITALS: BP 128/77; PULSE 94; RESP 18; O2SAT 97; BMI 33.9
== END | disposition home or self-care (01) ==
LOC: RAD 09:27
PROVIDERS: PCP Family Medicine; Referring Provider Family Medicine; Visit Provider Family Medicine
DX: Z45.2 Encounter for adjustment and management of vascular access device (principal)
CPT/HCPCS: 36569